=== PATIENT | male | born 1975 | race Caucasian/White ===

== ENCOUNTER 2020-10-28 15:00 | Outpatient (RCR) | payer OTHER, SELFPAY ==
--- NOTE | 2020-09-21 17:04 | MHC.PT.EP ---
[facility] [place] [facility] [place] Office [place] Office [address] [phone] F: [phone] F: [phone] F: [phone] F: [phone] Physical Therapy Plan of Care Date of Evaluation: Date of Surgery: Diagnosis: R arm pain. 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 Pt is deemed an appropriate candidate to receive skilled PT in order to address his physical limitations to improve his functional ability. Frequency and Duration: The patient will be seen 2 x / wk x 5 wks. Short Term Goals: initiate HEP with evidence of compliance. R UE radicular Sx abolished. Correction Goals: R UE strength improved to 5/5 grossly initial 4/5. I with HEP Pt will report no linger disturbed of sleep d/t R arm pain; initial 1/4 nights sleep disturbed. Treatment Plan: Modalities to reduce pain, spasms and effusion. Manual therapy to restore motion and function. Therapeutic exercise to improve strength and flexibility. Neuromuscular re-education for posture and balance. Therapeutic activities to return to functional activities of daily living. Electronically signed by: Seamus Reich PT. Please sign and return to therapist. Thank you for your referral.
--- NOTE | 2020-10-28 17:41 | MHC.PT.DC ---
[facility] [place] Office [place] Office [place] Office [address] Jonnathan Par[address] [phone] F: [phone] F: [phone] F: [phone] F: [phone] Physical Therapy Discharge Report Diagnosis: R arm pain. Date of Surgery: Date of Evaluation: 09/21/20 Date of Discharge: 10/28/20 Treatments to Date: 8 Cancellations to Date: No Shows to Date: Discharge Status: Achieved Goals Improved Function Independent with HEP Discharge Summary: Mark has been an active participant in his therapy in and out of the clinic. He has met his therapeutic goals and reports 80-85% improvement in his Sx and is in agreement with DC as he is I with his home program. Electronically signed by: Seamus Reich PT. Please sign and return to therapist. Thank you for your referral.
== END 2020-10-28 17:42 | disposition home or self-care (01) ==
LOC: HO.PTCHIC 15:00
PROVIDERS: PCP Hospitalist; Visit Provider Family Medicine
DX: M79.601 Pain in right arm (principal)
CPT/HCPCS: 97110; 97140; 97161

== ENCOUNTER 2021-08-28 12:13 | Outpatient (REF) | payer OTHER, SELFPAY ==
[2021-08-28 13:28] LABS: Hematocrit 45.4 % (42.0-52.0); Hemoglobin 14.9 g/dl (14.0-18.0); Mean Corpuscular HGB Conc 32.8 g/dl (31.0-36.0); Mean Corpuscular Hemoglobin 29.7 pg (27.0-33.0); Mean Corpuscular Volume 90.4 fL (80.0-98.0); Mean Platelet Volume 8.5 fL (9.4-12.4); Platelet Count 323 X10*3/uL (160-400); Red Blood Count 5.02 X10*6/uL (4.60-5.80); Red Cell Distribution Width 12.9 % (11.0-16.0); White Blood Count 8.5 X10*3/uL (4.8-10.8)
[2021-08-28 13:50] LABS: Alanine Aminotransferase 25 U/L (0-40); Albumin Level 4.3 g/dL (3.5-5.0); Alkaline Phosphatase 66 U/L (39-117); Anion Gap 15 (12-20); Aspartate Amino Transferase 19 U/L (5-37); Bilirubin Total 0.4 mg/dL (0.0-1.0); Blood Urea Nitrogen 22 mg/dL (9-16); Calcium 9.8 mg/dL (8.4-10.2); Carbon Dioxide 24 mmol/L (22-29); Chloride 106 mmol/L (96-108); Cholesterol 250 mg/dL; Estimated Glomerular Filt Rate > 60; Glucose Fasting 106 mg/dL (60-99); HDL Cholesterol 41 mg/dL; LDL Cholesterol Calculated 152 mg/dl; Potassium 4.2 mmol/L (3.3-5.1); Sodium 141 mmol/L (135-145); Total Protein 7.9 g/dL (6.5-8.0); Triglycerides 286 mg/dL
[2021-08-28 13:55] LABS: Appearance Urine CLEAR; Color Urine YELLOW; Glucose Urine UA NEG (NEG); Leukocyte Esterase Urine NEG (NEG); Nitrite Urine NEG (NEG); PH 5.5 (5.0-8.0); Specific Gravity - Urine >= 1.030 (1.005-1.025); Urine Blood NEG (NEG); Urine Ketones NEG (NEG); Urine Protein 1+ MG/DL (NEG-TRACE)
[2021-08-28 13:57] LABS: TSH reflex Free T4 0.75 uIU/mL (0.32-4.0)
[2021-08-28 14:27] LABS: Mucus Urine 2+ /LPF; RBC Urine 0-2 /HPF (0); Sperm Urine NOTED; WBC Urine 0-2 /HPF (0-4)
== END 2021-08-28 12:14 | disposition home or self-care (01) ==
LOC: HO.WFDLDS 12:13
PROVIDERS: Visit Provider Hospitalist
DX: Z00.00 Encounter for general adult medical examination without abnormal findings (principal)
CPT/HCPCS: 36415; 80053; 80061; 81001; 84443; 85027

== ENCOUNTER → 2021-09-08 14:57 | Outpatient (BNVA) | payer OTHER, SELFPAY | PROVIDERS: PCP Hospitalist; Referring Provider Hospitalist; Visit Provider Nurse Practitioner | DX: Z13.89 Encounter for screening for other disorder (principal) ==

== ENCOUNTER 2022-01-10 11:37 | Day surgery (SDC) | payer OTHER, SELFPAY ==
--- NOTE | 2022-01-09 14:48 | P.CONAN_ITS ---
Documented by User: Aracelis Alanis NP 01/09/22 14:49 HPI - Anesthesia Eval Consult details Narrative: 46yo M for Colonoscopy Hx of syncope after surgical procedures. Needle phobic? PMFSH Active Problems Active Problems: All Active Problems (Updated 09/15/21 @ 08:57 by PETER Arroyo) Colon cancer screening (Acute) High cholesterol (Acute) Normal physical exam (Acute) Acute hemorrhoid (Acute) Hx of colonic polyps (Acute) Encounter for colonoscopy due to history of colonic polyp (Acute) Difficulty in urination (Acute) Obesity (BMI 30.0-34.9) (Acute) Overweight (Acute) Right upper limb pain (Acute) Anxiety and depression (Acute) Past Medical History Medical History Anxiety and depression COPD (chronic obstructive pulmonary disease) ED (erectile dysfunction) Family History Family History Mother Cancer Father No problems noted. 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 Cognitive needs: No Hearing needs: No Vision needs: No Meds Allergies Allergy/AdvReac Type Severity Reaction Status Date / Time No Known Allergies Allergy Verified 09/08/21 15:19 Exam Exam Date and Time: January 09, 2022 144 Pertinent Lab Results Pertinent Lab Results: Laboratory Tests 08/28/21 08/28/21 12:23 12:23 WBC 8.5 Hgb 14.9 Hct 45.4 Plt Count 323 Sodium 141 Potassium 4.2 Chloride 106 Carbon Dioxide 24 BUN 22 H Creatinine 1.00 Assessment and Plan Assessment Anesthesia Assessment: Chart Reviewed Documented by User: Justin Garcia MD 01/10/22 12:02 [facility] Past Medical History Medical History Anxiety and depression COPD (chronic obstructive pulmonary disease) ED (erectile dysfunction) Family History Family History Mother Cancer Father No problems noted. 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 Cognitive needs: No Hearing needs: No Vision needs: No Meds Allergies Allergy/AdvReac Type Severity Reaction Status Date / Time No Known Allergies Allergy Verified 09/08/21 15:19 Exam Airway Mallampati Class: II TM Dist: >3cm Neck ROM: Full Loose/Missing/Broken Teeth: No Heart: rrr+s1s2 Lungs: cta b/l Assessment and Plan Assessment Anesthesia Assessment: Anesthesia Plan Discussed Final Anesthetic Review Family History of Problems with Anesthesia: No History of Problems with Anesthesia: No NPO: Yes ASA Class: III Final Preanesthetic Review: No Changes in Pt Med Stat, Meds/Allgs Chart Reviewed, Consent Obtained/Reviewed and Anes Risks/Benef Reviewed Patient Risk: Intermediate Procedure Risk: Low Assessment/Block/Sedation in SS: Assess/Block/Sedation-SS Anesthetic Plan Anesthetic Plan: MAC: and Agree w/ Assess. and Plan Disposition: Standard PACU
[2022-01-10 11:45] VITALS: BMI 30.9
[2022-01-10 11:53] VITALS: BP 147/91; PULSE 105; RESP 16; TEMP 36.8; O2SAT 96
[2022-01-10] MEDS: Lactated Ringers 1,000 ML 100 ML IVCONT (12:07)
--- NOTE | 2022-01-10 12:10 | MHC.SHP ---
Pre-Procedural Eval Section A Date of Service: 01/10/22 Section B Chief Complaint: screening colo Details of Present Illness: 46y.o M at ? high risk for colon cancer here for a colonoscopy. Tells me his father had colon cancer but he is not sure what age he was diagnosed at. Pt himself had a colonoscopy at [facility] >5y ago for rectal bleeding, no polyps at that time per his report. Relevant Social History: Tobacco Use (Former ) Present Medications: see Short Stay Collaborative assessment Medical History: Significant History History of Previous Operations: No relevant previous surgery (hernia repair ) Allergies: Allergies Allergy/AdvReac Type Severity Reaction Status Date / Time No Known Allergies Allergy Verified 09/08/21 15:19 Review of Systems Review of Systems Comment: 10 point ROS negative except as noted above Exam Exam Comment: Gen appear: No acute distress, well nourished HEENT: no icterus, Chest: No overt resp distress CVS: S1/S2, regular Abd: soft, nontender, nondistended Psych: Stable affect, answering questions appropriately Neuro: A/Ox3 noted to move all extremities spontaneously Plan I have reviewed the history and physical and performed a pertinent physical examination on my patient. No changes have occurred unless specified.
--- NOTE | 2022-01-10 12:16 | P.OP_ITS ---
Operative Note Operative Note Date of Service: 01/10/22 Narrative: Procedure: Colonoscopy Indication: Screening, family history of colon cancer Endoscopist: Cristin Razo MD Anesthesia Provider: Dr Jenna Aiken Anesthesia type: MAC Instrument: Olympus [id number]-[id number] Consent: Indication, risks vs benefits, and alternatives were discussed with the patient who gave written informed consent to proceed. EKG, pulse, pulse oximetry and blood pressure were monitored throughout the procedure. Please see anesthesia flowsheet. Procedure: The patient was brought to the procedure room and placed in the left lateral decubitus position. IV medications were administered by the anesthesia provider in attendance. A digital rectal exam was performed which was normal. The colonoscope was then inserted through the anus and advanced through the colon to the cecum at 80 cm,and terminal ileum. Mucosa was carefully examined under high definition white light as the instrument was slowly withdrawn in a retrograde panoramic fashion. Retroflexion was performed in rectum. The procedure was not difficult. There were no immediate obvious complications. The quality of the prep was BBPS: 3+2+3 = adequate Withdrawal time 16 minutes. Limitations: No limitations. Findings: Mucosa: Normal to cecum and terminal ileum. Protruding lesions: * 1 sessile polyp of size 2 mm in sigmoid colon. Cold forceps polypectomy was performed. The polyp was completely removed and retrieved. * Small internal hemorrhoids without stigmata of recent bleeding. Excavated lesions: * Mild diverticulosis of left sided colon. Impression: 1. Normal colon mucosa 2. Total of 1 polyp removed from sigmoid colon. 3. Left sided diverticulosis 3. Internal hemorrhoids Recommendations: - Follow path results. - Repeat colonoscopy 7-10 years if polyps are adenomas. - Increase fiber intake
[2022-01-10 12:55] VITALS: BP 108/73; PULSE 88; RESP 16; TEMP 36.1; O2SAT 93
[2022-01-10 13:10] VITALS: BP 121/81; PULSE 86; RESP 19; TEMP 36.1; O2SAT 97
== END 2022-01-10 13:54 | disposition home or self-care (01) ==
PROVIDERS: Visit Provider Internal Medicine
PROC: 0DJD8ZZ Inspection of Lower Intestinal Tract, Via Natural or Artificial Opening Endoscopic (ICD-10-PCS; CPT 45378; principal; 2022-01-10 13:10)
DX: Z12.11 Encounter for screening for malignant neoplasm of colon (principal); Z86.010 Personal history of colon polyps; K63.5 Polyp of colon; K57.30 Diverticulosis of large intestine without perforation or abscess without bleeding; K64.8 Other hemorrhoids; N52.9 Male erectile dysfunction, unspecified; R39.198 Other difficulties with micturition; E78.00 Pure hypercholesterolemia, unspecified; F41.8 Other specified anxiety disorders; Z79.899 Other long term (current) drug therapy; Z87.891 Personal history of nicotine dependence
CPT/HCPCS: 45380; 88305; J2405

== ENCOUNTER 2022-10-30 12:22 | Outpatient (AMB) | payer BC, SELFPAY ==
--- NOTE | 2022-10-30 12:29 | A.OFFPC_ITS ---
Vital Signs 10/30/22 12:30 Height 5 ft 3 in Weight 176 lb 6 oz BMI 31.2 BP 128/70 Blood Pressure Location Lt brachial Position Sitting Pulse 87 Pulse Source Pulse Oximeter Pulse Oximetry (%) 97 Intake Visit Reasons: Hemorrhoid anal itch Intake Note: pt is here for hemorrhoid/anal itch, since January after colonoscopy. patient also has concerns about white spots on skin Family Services Coordinator Required: No Accompanied by: Self / Same As Patient Allergies No Known Allergies Allergy (Verified 10/30/22 12:49) Medication List - Last Reconciled 10/30/22 by Kimberly Alfaro CNP atorvastatin 40 mg PO BEDTIME cyclobenzaprine 10 mg PO TID 30 days fluoxetine 40 mg PO DAILY hydrocortisone 2.5% (Anusol-HC) 1 appl [place] BID-QID PRN melatonin 10 mg PO BEDTIME Tobacco use date assessed: 10/30/22 Dental Screening Dental Screen Date: 10/30/22 Did you have a dental visit in the last 12 months?: Yes Did you have a dental problem in the last 6 months where you did not have access to dental care?: No Was dental information given to patient?: Patient has dentist HPI HPI Comments History of Present Illness Details 47-year-old male presents with complaints of external hemorrhoids. He notes that the hemorrhoids have been present and itchy since he had colonoscopy last January. He reports blood on the wipes after having bowel movements. No pain or blood in the stool. He states he has been using [id number] remedies and previously prescribed medication without relief. Review of 01/10/2022 colonoscopy results revealed hyperplastic mucosal polyp with recommended follow-up in 10 years. He notes that he has been taking fluoxetine as prescribed with controlled anxiety and depression symptoms. [facility] Medical History Anxiety and depression COPD (chronic obstructive pulmonary disease) ED (erectile dysfunction) Surgical History H/O umbilical hernia repair Hx of colonoscopy Family History Mother Cancer Father No problems noted. 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 1. Little interest or pleasure in doing things: several days 2. Feeling down, depressed, or hopeless: several days 3. Trouble falling or staying asleep, or sleeping too much: several days 4. Feeling tired or having little energy: nearly every day 5. Poor appetite or overeating: several days 6. Feeling bad about yourself - or that you are a failure or have let yourself or your family down: not at all 7. Trouble concentrating on things, such as reading the newspaper or watching television: several days 8. Moving or speaking so slowly that other people could have noticed. Or the opposite - being so fidgety or restless that you have been moving around a lot more than usual: not at all 9. Thoughts that you would be better off or of hurting yourself in some way: not at all Total score: 8 Depression Screening Interpretation: Positive Depression Screening Follow-up: Existing condition and In treatment 46696 - PHQ-9 Billing: Yes Source: Developed by Drs. Andrea Stewart, Alana Cuello, Kenneth Lane and colleagues, with an educational parvez from [employer]. Thrive Questionnaire Date Thrive assessed: 10/30/22 I am a: Patient What is your living situation today?: I have a steady place to live Within the past 12 months, did the food you bought not last and you didn't have the money to get more?: Never true Within the past 12 months, did you worry whether your food would run out before you got money to buy more?: Never true Do you have trouble paying for medicines?: No Do you have trouble getting transportation to medical appointments?: No Do you have trouble paying your heating and electricity bill?: No Do you have trouble taking care of your child, family member or friend?: No Do you have trouble with day-to-day activities such as bathing, preparing meals, shopping, managing finances, etc.?: No Are you currently unemployed and looking for a job?: No Are you interested in more education?: No Please select the resources that you would like help with: None Currently or been in a relationship where the following occur: no concerns reported JOSE-7 AMB Questionnaire JOSE-7 Date JOSE - 7 assessed: 10/30/22 Feeling nervous, anxious, or on edge: 1 = Several days Not being able to stop or control worryin = Not at all Worrying too much about different things: 1 = Several days Trouble relaxin = Several days Being so restless that it is hard to sit still: 1 = Several days Becoming easily annoyed or irritable: 1 = Several days Feeling afraid as if something awful might happen: 0 = Not at all Total JOSE-7 score (0-4 normal; 5-9 mild; 10-14 moderate; 15-21 severe): 5 Source: Developed by Drs. Andrea Stewart, Alana Cuello, Kenneth Lane and colleagues, with an educational parvez from [employer]. JOSE-7 Assessment Billing JOSE-7 Assessment Tool: JOSE-7 Assessment 34371 Review of Systems Const Details: Const Denies chills, Denies fatigue, Denies fever(s), Denies headache(s) and Denies weakness ENT Denies dizziness and Denies headache(s) Card Denies chest pain, Denies lightheadedness, Denies dyspnea and Denies other (Palpitations) Resp Denies cough, Denies dyspnea, Denies wheezing and Denies other ( shortness of breath) GI Reports hemorrhoids, Denies abdominal pain, Denies melena, Denies hematochezia, Denies change in bowel habits, Denies dyspepsia and Denies nausea Denies hematuria and Denies dysuria Musc Denies abnormal gait, Denies myalgias, Denies arthralgias, Denies numbness and Denies tingling Skin/Breast Denies rash, Denies unusual bruising and Denies wounds Neuro Denies abnormal gait, Denies dizziness, Denies headache(s), Denies memory loss, Denies numbness, Denies Sensory deficit (Neuro), Denies tingling and Denies weakness Psych Denies anxiety and Denies depression Endo Denies fatigue Aller/Immun Denies wheezing Physical exam (Primary Care) Vital Signs: Last Vital Signs Pulse 87 10/30/22 12:30 BP 128/70 10/30/22 12:30 Pulse Ox 97 10/30/22 12:30 BMI result Body Mass Index 31.2 Tobacco/Smoking Status: Tobacco use Status Tobacco use date assessed 10/30/22 10/30/22 12:32 Patient Tobacco Use Status Former Tobacco user 10/30/22 12:32 e-Cigarette/Vaping Use Never Used 10/30/22 12:32 PHQ-9: PHQ-9 Score PHQ-9: Total score 8 10/30/22 12:36 Depression Screening Interpretation: Positive Depression Screening Follow-up: Existing condition and In treatment Thrive Assessment: Date of Thrive Assessment Date Thrive assessed 10/30/22 10/30/22 12:36 Currently or been in a relationship where the following occur: no concerns reported Const Other: General: no acute distress and well developed Nutritional Appearance: well nourished Orientation/consciousness: patient oriented x3 HENMT Head: Yes normocephalic and Yes atraumatic Eyes General: appearance normal, both eyes and all related structures Pupils: Equal, round and reactive pupils present EOM: EOMs intact bilaterally Resp Effort & Inspection: normal respiratory effort Auscultation: clear to auscultation bilaterally Cardio Rate: regular rate Rhythm: regular rhythm Heart sounds: S1 normal heart sound present, S2 normal heart sound present, no gallops, no murmurs and no rubs GI Palpation (GI): No Abdominal aortic bruit present, Soft to palpation, nontender, No hepatosplenomegaly present and No Rebound tenderness present Auscultation: normal bowel sounds General: Yes no CVA tenderness Back/Spine/Pelvis Back: no CVA tenderness Cervical Spine: cervical ROM normal and No Cervical spine tenderness Thoracic/Lumbar Spine: thoraco-lumbar ROM normal, No pain with thoraco-lumbar ROM, No thoracic spinal tenderness and No lumbar spinal tenderness Extrem General: Yes normal to inspection, No edema and No calf tenderness Skin General: warm and dry. Normal skin color. Normal skin turgor Lesions: no lesions Rashes: no rashes Trauma: no lacerations or abrasions Wounds: no wounds Nails: normal Neuro General: patient oriented x3, gait normal and no focal neuro deficit Cranial nerves: Yes Equal, round and reactive pupils present Cognition (Neuro): normal cognition Gait exam (Neuro): Normal gait present Sensory Exam: No Sensory deficit (Neuro) Psych Affect: normal affect Assessment and Plan Assessment & Plan (1) Hemorrhoids: Code(s): K64.9 - Unspecified hemorrhoids Plan: He notes that the hemorrhoids have been present and itchy since he had colonoscopy last January. He reports blood on the wipes after having bowel movements. No pain or blood in the stool. Hemorrhoidal cream as prescribed Referred to Gastroenterology Follow-up with with new or worsening symptoms Verbalized understanding and agreed with the treatment plan. (2) Anxiety and depression: Code(s): F41.9 - Anxiety disorder, unspecified; F32.9 - Major depressive disorder, single episode, unspecified Plan: PHQ-9 and JOSE-7 scores revealed mild depression and anxiety Fluoxetine as prescribed Routine exercise encouraged Follow-up with PCP as planned Return sooner with new or worsening symptoms Verbalized understanding and agreed with treatment plan. Orders: Referrals Gastroenterology Referral K64.9 - Unspecified hemorrhoids Medications: New lidocaine 5% (Hemorrhoidal Relief) 1 appl topical TID PRN 30 grams 0RF pain Coding Level of Care Code Est Pt Level 3 (98277) Diagnoses Hemorrhoids K64.9 Anxiety and depression F41.9; F32.9 Additional Codes JOSE-7 Assessment Billing - JOSE-7 Assessment Tool: JOSE-7 Assessment [id number] ([id number]) Time Spent (min) 25
[2022-10-30 12:30] VITALS: BP 128/70; PULSE 87; O2SAT 97; BMI 31.2
== END 2022-10-30 13:09 | disposition home or self-care (01) ==
PROVIDERS: PCP Hospitalist; Visit Provider Nurse Practitioner Family
DX: K64.9 Unspecified hemorrhoids (principal); F41.9 Anxiety disorder, unspecified; F32.9 Major depressive disorder, single episode, unspecified
CPT/HCPCS: 99213

== ENCOUNTER 2022-12-12 11:12 | Outpatient (AMB) | payer BC, SELFPAY ==
[2022-12-12 11:16] VITALS: BP 139/87; PULSE 86; BMI 30.8
--- NOTE | 2022-12-12 11:16 | MHC.OFFVIS ---
Intake Vital Signs 12/12/22 11:16 Height 5 ft 3 in Weight 174 lb BMI 30.8 BP 139/87 Blood Pressure Location Rt brachial Position Sitting Pulse 86 Intake Visit Reasons: Hemorrhoids Intake Note: Patient referred for external hemorrhoids. C/o intense itch. Was prescribed 4%lido, 2.5% HC cr and OTC 5% Pranicura with no improvement. Fleet suppository not helping. Also tried bath soaks. Patient c/o bleeding when wiping after BM. Had colonoscopy last January. Transmission Maintenance Supervisor Required: No Accompanied by: Spouse Allergies No Known Allergies Allergy (Verified 12/12/22 11:21) Medication List - Last Reconciled 12/12/22 by Prieto Caballero MD atorvastatin 40 mg PO BEDTIME cyclobenzaprine 10 mg PO TID 30 days fluoxetine 40 mg PO DAILY hydrocortisone 2.5% (Anusol-HC) 1 appl [place] BID-QID PRN lidocaine 5% (Hemorrhoidal Relief) 1 appl topical TID PRN melatonin 10 mg PO BEDTIME HPI HPI Comments History of Present Illness Details Patient presents with his significant other with a approximately 10 month history of anorectal pain, itching and discomfort. He was attributing his symptoms to what he thought were hemorrhoids. Patient had colonoscopy approximately year ago which was otherwise within normal limits. He has occasional hard/constipated stool. Denies any anal receptive practices. Chart was reviewed and patient evaluated [facility] Medical History Anxiety and depression COPD (chronic obstructive pulmonary disease) ED (erectile dysfunction) Surgical History H/O umbilical hernia repair Hx of colonoscopy Family History Mother Cancer Father No problems noted. 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 No significant hemorrhoids identified. Rectal exam was deferred secondary to patient's discomfort. Assessment & Plan Assessment & Plan (1) Anal fissure: Code(s): K60.2 - Anal fissure, unspecified Plan I discussed with the patient and his significant other recommendations for his posterior anal fissure. These include stool softeners, drain lots of water, stay hydrated, avoid prolonged sitting on the toilet, avoid straining, and because of the chronicity of symptoms, will recommend topical nitroglycerin. All questions were answered. Patient will see me in approximately 2 months time or p.r.n. Medications: New nitroglycerin 0.4%(w/w) (Rectiv) 1 inch AL BID 30 grams 2RF Anal fissure Coding Level of Care Code New Pt Level 5 (64899) Diagnoses Anal fissure K60.2
== END 2022-12-12 11:46 | disposition home or self-care (01) ==
PROVIDERS: PCP Hospitalist; Referring Provider Nurse Practitioner Family; Visit Provider Surgery
DX: K60.2 Anal fissure, unspecified (principal)
CPT/HCPCS: 99204

== ENCOUNTER → 2022-12-12 11:12 | Outpatient (BNVA) | payer BC, SELFPAY | PROVIDERS: PCP Hospitalist; Referring Provider Nurse Practitioner Family; Visit Provider Surgery ==

== ENCOUNTER 2023-02-11 10:40 | Outpatient (AMB) | payer BC, SELFPAY ==
[2023-02-11 10:51] VITALS: BP 118/64; PULSE 82; RESP 12; TEMP 37.1; O2SAT 98; BMI 32.5
--- NOTE | 2023-02-11 10:51 | MHC.PC.OV ---
Vital Signs 02/11/23 10:51 Height 5 ft 3 in Weight 183 lb 6 oz BMI 32.5 BP 118/64 Blood Pressure Location Lt brachial Position Sitting Respiration 12 Pulse 82 Pulse Source Pulse Oximeter Temp 98.7 F Temp Source Oral Pulse Oximetry (%) 98 Oxygen Delivery Method Room Air Intake Visit Reasons: PE Intake Note: Patient is here for a physical. Patient's last physical was on 08/16/21 with Esme Marques DNP. Patient reports he has no concerns to report. Hourly Associate Required: No Accompanied by: Self / Same As Patient Allergies No Known Allergies Allergy (Verified 02/11/23 11:30) Medication List - Last Reconciled 02/11/23 by Kimberly Alfaro CNP atorvastatin 40 mg PO BEDTIME cyclobenzaprine 10 mg PO TID 30 days fluoxetine 40 mg PO DAILY hydrocortisone 2.5% (Anusol-HC) 1 appl MS BID-QID PRN lidocaine 5% (Hemorrhoidal Relief) 1 appl topical TID PRN melatonin 10 mg PO BEDTIME nitroglycerin 0.4%(w/w) (Rectiv) 1 inch MS BID Tobacco use date assessed: 02/11/23 Dental Screening Dental Screen Date: 02/11/23 Did you have a dental visit in the last 12 months?: No Did you have a dental problem in the last 6 months where you did not have access to dental care?: No Was dental information given to patient?: Patient declined HPI HPI Comments History of Present Illness Details 48-year-old male presents for transfer of care and a complete physical exam. His former PCP was JUDY who is no longer with the practice. He has past medical history significant for hyperlipidemia, obesity, anal fissure, anxiety, and depression. He admits to taking his medication as prescribed and reports controlled anxiety and depression symptoms on fluoxetine. He was evaluated and treated for anal fissure by [facility] General surgery in December 2022; he notes he has a follow up tomorrow. He had colonoscopy that was normal a year ago. He notes that his hearing has been diminished for the past several years. He states that he intends to lose weight. However, his diet has not been the Healthiest. He has not been exercising. He has not had routine blood work done in over a year. [facility] Medical History COPD (chronic obstructive pulmonary disease) Anxiety and depression ED (erectile dysfunction) Surgical History H/O umbilical hernia repair Hx of colonoscopy Family History Mother Cancer Father No problems noted. 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 1. Little interest or pleasure in doing things: more than half the days 2. Feeling down, depressed, or hopeless: more than half the days 3. Trouble falling or staying asleep, or sleeping too much: more than half the days 4. Feeling tired or having little energy: nearly every day 5. Poor appetite or overeating: more than half the days 6. Feeling bad about yourself - or that you are a failure or have let yourself or your family down: not at all 7. Trouble concentrating on things, such as reading the newspaper or watching television: more than half the days 8. Moving or speaking so slowly that other people could have noticed. Or the opposite - being so fidgety or restless that you have been moving around a lot more than usual: not at all 9. Thoughts that you would be better off or of hurting yourself in some way: not at all Total score: 13 Depression Screening Interpretation: Positive Depression Screening Follow-up: Existing condition and In treatment Depression Screening Done: Yes 05014 - PHQ-9 Billing: Yes Source: Developed by Drs. Andrea Stewart, Alana Cuello, Kenneth Lane and colleagues, with an educational parvez from [employer]. Thrive Questionnaire Date Thrive assessed: 02/11/23 I am a: Patient What is your living situation today?: I have a steady place to live Within the past 12 months, did the food you bought not last and you didn't have the money to get more?: Never true Within the past 12 months, did you worry whether your food would run out before you got money to buy more?: Never true Do you have trouble paying for medicines?: No Do you have trouble getting transportation to medical appointments?: No Do you have trouble paying your heating and electricity bill?: No Do you have trouble taking care of your child, family member or friend?: No Do you have trouble with day-to-day activities such as bathing, preparing meals, shopping, managing finances, etc.?: No Are you currently unemployed and looking for a job?: No Are you interested in more education?: No Please select the resources that you would like help with: None Currently or been in a relationship where the following occur: no concerns reported AUDIT C Alcohol Use Questionnaire (AUDIT-C) 1. How often do you have a drink containing alcohol?: Never 3. How often do you have six or more drinks on one occasion?: Never Total Score: 0 JOSE-7 AMB Questionnaire JOSE-7 Date JOSE - 7 assessed: 02/11/23 Feeling nervous, anxious, or on edge: 1 = Several days Not being able to stop or control worryin = Not at all Worrying too much about different things: 0 = Not at all Trouble relaxin = Several days Being so restless that it is hard to sit still: 1 = Several days Becoming easily annoyed or irritable: 2 = More than half the days Feeling afraid as if something awful might happen: 0 = Not at all Total JOSE-7 score (0-4 normal; 5-9 mild; 10-14 moderate; 15-21 severe): 5 Source: Developed by Drs. Andrea Stewart, Alana Cuello, Kenneth Lane and colleagues, with an educational parvez from [employer]. JOSE-7 Assessment Billing JOSE-7 Assessment Tool: JOSE-7 Assessment 82235 Review of Systems Const Details: Denies chills, Denies fatigue, Denies fever(s), Denies headache(s) and Denies weakness HEENT Denies change in vision, Denies dizziness, Denies headache(s), Reports hearing loss, Denies nasal congestion, Denies sinus pain, Denies sinus pressure and Denies sore throat Card Denies chest pain, Denies lightheadedness, Denies dyspnea and Denies other (palpitations) Resp Denies cough, Denies dyspnea and Denies wheezing GI Denies abdominal pain, Denies melena, Denies hematochezia, Denies change in bowel habits, Denies dyspepsia and Denies nausea Denies hematuria and Denies dysuria Musc Denies abnormal gait, Denies myalgias, Denies arthralgias, Denies numbness and Denies tingling Skin/Breast Denies rash, Denies unusual bruising and Denies wounds Neuro Denies abnormal gait, Denies dizziness, Denies headache(s), Denies memory loss, Denies numbness, Denies Sensory deficit (Neuro), Denies tingling and Denies weakness Psych Denies anxiety, Denies depression and Denies memory loss Endo Denies cold intolerance, Denies fatigue, Denies heat intolerance, Denies polydipsia and Denies polyuria Adarsh/Lymph Denies easy bleeding and Denies easy bruising Aller/Immun Denies wheezing Physical exam (Primary Care) Vital Signs: Last Vital Signs Temp 98.7 F 02/11/23 10:51 Pulse 82 02/11/23 10:51 Resp 12 02/11/23 10:51 BP 118/64 02/11/23 10:51 Pulse Ox 98 02/11/23 10:51 Oxygen Delivery Method Room Air 02/11/23 10:51 BMI result Body Mass Index 32.5 Tobacco/Smoking Status: Tobacco use Status Tobacco use date assessed 02/11/23 02/11/23 11:04 Patient Tobacco Use Status Former Tobacco user 02/11/23 10:52 e-Cigarette/Vaping Use Never Used 02/11/23 10:52 PHQ-9: PHQ-9 Score PHQ-9: Total score 13 02/11/23 11:18 Depression Screening Interpretation: Positive Depression Screening Follow-up: Existing condition and In treatment Thrive Assessment: Date of Thrive Assessment Date Thrive assessed 02/11/23 02/11/23 11:18 Currently or been in a relationship where the following occur: no concerns reported Const Other: General: no acute distress, well developed, alert and awake Nutritional Appearance: well nourished Orientation/consciousness: patient oriented x3 [facility] Head is normocephalic Impacted cerumen of both ears occluding the TMs, ear canals are normal, no overt signs of infection Nasal turbinates and oropharynx are pink and moist Sinuses are nontender with palpation No auricular or cervical lymphadenopathy Ears: hearing grossly normal bilaterally and TM's normal bilaterally General nose exam: Normal external nose present and Normal nares present Mouth: Normal oral and palatal mucosa present and moist mucous membranes Teeth and gingiva: dentition normal Throat: Yes oropharynx normal Eyes Pupils: Equal, round and reactive pupils present and Pupil accommodation reflex normal EOM: EOMs intact bilaterally Neck Neck: Yes normal visual inspection, Yes no lymphadenopathy and Yes trachea midline Thyroid: Thyroid normal Carotids: no bruits Lymphatic: no lymphadenopathy noted Chest Chest palpation & inspection: normal inspection of the chest Resp Effort & Inspection: normal respiratory effort Auscultation: clear to auscultation bilaterally Cardio Rate: regular rate Rhythm: regular rhythm Heart sounds: S1 normal heart sound present, S2 normal heart sound present, no gallops, no murmurs and no rubs Bruits: no abdominal aortic bruits and no carotid bruits GI Palpation (GI): No Abdominal aortic bruit present, Soft to palpation, nontender, No hepatosplenomegaly present and No Rebound tenderness present Auscultation: normal bowel sounds General: Yes no CVA tenderness Back/Spine/Pelvis Back: no CVA tenderness Cervical Spine: cervical ROM normal and No Cervical spine tenderness Thoracic/Lumbar Spine: thoraco-lumbar ROM normal, No pain with thoraco-lumbar ROM, No thoracic spinal tenderness and No lumbar spinal tenderness Skin General: warm and dry. Normal skin color. Normal skin turgor Lesions: no lesions Rashes: no rashes Trauma: no lacerations or abrasions Wounds: no wounds Nails: normal Neuro General: patient oriented x3, gait normal and CN's II-XI intact bilaterally Cranial nerves: Yes Equal, round and reactive pupils present Cognition (Neuro): normal cognition Gait exam (Neuro): Normal gait present Motor exam (neuro): 5/5 motor strength present throughout Sensory Exam: No Sensory deficit (Neuro) Deep tendon reflexes (DTR's): Right patellar reflex intensity grade: 2+ and Left patellar reflex intensity grade: 2+ Extrem General: Yes normal to inspection, No edema and No calf tenderness Psych Appearance: grossly normal Affect: normal affect Attitude: cooperative Thought process: Normal thought process present Assessment and Plan Assessment & Plan (1) Normal physical exam: Code(s): Z00.00 - Encounter for general adult medical examination without abnormal findings Plan: No significant physical restrictions or limitations noted Routine fasting labs ordered. Advise to fast for 10-12 hours and get blood work done before his next visit Follow-up in 1 month or return sooner with symptoms or concerns Verbalized understanding and agreed with treatment plan. (2) Anxiety and depression: Code(s): F41.9 - Anxiety disorder, unspecified; F32.9 - Major depressive disorder, single episode, unspecified Plan: PHQ-9 and JOSE-7 scores revealed moderate depression and mild anxiety respectively Continue to take fluoxetine as prescribed Routine exercise encouraged Follow-up in 1 month or return sooner with worsening or new symptoms Verbalized understanding and agreed with treatment plan. (3) Obesity (BMI 30.0-34.9): Code(s): E66.9 - Obesity, unspecified Plan: He notes that he has been unable to lose weight. He has been eating poorly and has not been exercising. He weighs 183 lb and his BMI is 32.5 Healthy diet and routine exercise encouraged Referred to weight management Follow-up with symptoms or concerns Verbalized understanding and agreed with treatment plan. (4) Impacted cerumen of both ears: Code(s): H61.23 - Impacted cerumen, bilateral Plan: Reports hearing loss for the past several years Impacted cerumen of both ears occluding the TMs, ear canals are normal, no overt signs of infection Debrox ordered. Apply to both ear canal as prescribed Schedule an appointment for bilateral ear irrigation Verbalized understanding and agreed with the plan. (5) Laboratory tests ordered as part of a complete physical exam (CPE): Code(s): Z00.00 - Encounter for general adult medical examination without abnormal findings Plan: Fasting labs ordered as part of a complete physical exam. Advised to fast for at least 10 hours before getting labs drawn. May drink water Verbalized understanding and agreed with treatment plan. Orders: Orders Comprehensive [place]. Panel Fast Today Z00.00 - Encounter for general adult medical examination without abnormal findings TSH reflex Free T4 Today Z00.00 - Encounter for general adult medical examination without abnormal findings Complete Blood Count Auto Diff Today Z00.00 - Encounter for general adult medical examination without abnormal findings Lipid Panel Today Z00.00 - Encounter for general adult medical examination without abnormal findings UA CC w/rflx Micro + Cult Today Z00.00 - Encounter for general adult medical examination without abnormal findings Referrals Medical Weight Management Referral E66.9 - Obesity, unspecified Medications: New carbamide peroxide 6.5% (Debrox) 5 drops to both ears x 4 days 5 drps otic (ears) DAILY 4 days 15 mL 0RF Coding Level of Care Code Est Pt Level 3 (99622) Est Pt Prev Care 40-64y(69659) Diagnoses Normal physical exam Z00.00 Anxiety and depression F41.9; F32.9 Obesity (BMI 30.0-34.9) E66.9 Impacted cerumen of both ears H61.23 Laboratory tests ordered as part of a complete physical exam (CPE) Z00.00 Additional Codes JOSE-7 Assessment Billing - JOSE-7 Assessment Tool: JOSE-7 Assessment 73617 ([id number])
== END 2023-02-11 11:49 | disposition home or self-care (01) ==
PROVIDERS: PCP Hospitalist; Visit Provider Nurse Practitioner Family
DX: Z00.00 Encounter for general adult medical examination without abnormal findings (principal); E66.9 Obesity, unspecified; Z68.25 Body mass index [BMI] 25.0-25.9, adult; F41.9 Anxiety disorder, unspecified; F32.9 Major depressive disorder, single episode, unspecified; H61.23 Impacted cerumen, bilateral
CPT/HCPCS: 96127; 99213; 99396

== ENCOUNTER 2023-02-12 14:06 | Outpatient (AMB) | payer BC, SELFPAY ==
[2023-02-12 14:13] VITALS: BP 153/83; PULSE 86; BMI 32.1
--- NOTE | 2023-02-12 14:13 | MHC.OFFVIS ---
Intake Vital Signs 02/12/23 14:13 Height 5 ft 3 in Weight 181 lb BMI 32.1 BP 153/83 H Blood Pressure Location Rt brachial Position Sitting Pulse 86 Intake Visit Reasons: 2 mth follow up hemorrhoids Intake Note: Patient here for 2m f/u hemorrhoids. Patient c/o internal and external itch. Pain and bleeding comes and goes. Rx nitroglycerin was $600 and was only able to fill once. Did not get much relieve with rx. Information Security Risk Analyst Required: No Accompanied by: Spouse Allergies No Known Allergies Allergy (Verified 02/12/23 14:14) HPI HPI Comments History of Present Illness Details Patient presents with his significant other. He has had marked improvement of his anorectal discomfort secondary to fissures. His main complaint is significant pruritus ani. Is otherwise tolerating his diet have a regular bowel habits. He used topical nitroglycerin with good results but it was quite expensive [facility] Medical History COPD (chronic obstructive pulmonary disease) Anxiety and depression ED (erectile dysfunction) Surgical History H/O umbilical hernia repair Hx of colonoscopy Family History Mother Cancer Father No problems noted. 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 Assessment & Plan Assessment & Plan (1) Anal fissure: Code(s): K60.2 - Anal fissure, unspecified Plan Patient has been given script for a topical ointment sample to see if this helps is pruritus ani, and if so, if he is to call the office a formal script will be written for the ointment(calmoseptine). All questions were answered. Patient otherwise follow-up p.r.n.. Coding Level of Care Code Est Pt Level 4 (36743) Diagnoses Anal fissure K60.2
== END 2023-02-12 14:24 | disposition home or self-care (01) ==
PROVIDERS: PCP Hospitalist; Visit Provider Surgery
DX: K60.2 Anal fissure, unspecified (principal)
CPT/HCPCS: 99214

== ENCOUNTER → 2023-02-12 14:06 | Outpatient (BNVA) | payer BC, SELFPAY | PROVIDERS: PCP Hospitalist; Visit Provider Surgery ==

== ENCOUNTER 2023-03-11 09:53 | Outpatient (REF) | payer BC, SELFPAY ==
[2023-03-11 11:11] LABS: MANUAL DIFF FLAG NO
[2023-03-11 11:41] LABS: Basophils Percent Auto 0.3 % (0-2); Eosinophils Absolute Auto 0.2 X10*3/uL (0.0-0.4); Eosinophils Percent Auto 2.2 % (0-4); Hematocrit 41.8 % (42.0-52.0); Hemoglobin 13.8 g/dl (14.0-18.0); Imm Gran Abs Auto 0.02 X10*3/uL (0.00-0.03); Imm Gran Pct Auto 0.3 % (0.0-0.4); Lymphocytes Absolute Auto 2.4 X10*3/uL (1.2-4.9); Lymphocytes Percent Auto 30.2 % (20-40); Mean Corpuscular Hemoglobin 30.1 pg (27.0-33.0); Mean Corpuscular Volume 91.3 fL (80.0-98.0); Mean Platelet Volume 8.9 fL (9.4-12.4); Monocytes Absolute Auto 0.7 X10*3/uL (0.1-1.2); Monocytes Percent Auto 8.3 % (2-11); Neutrophils Absolute Auto 4.6 x10*3/uL (2.0-8.3); Neutrophils Percent Auto 58.7 % (45-73); Platelet Count 285 X10*3/uL (160-400); Red Blood Count 4.58 X10*6/uL (4.60-5.80); Red Cell Distribution Width 12.4 % (11.0-16.0); White Blood Count 7.8 X10*3/uL (4.8-10.8)
[2023-03-11 12:00] LABS: Alanine Aminotransferase 22 U/L (0-40); Alkaline Phosphatase 69 U/L (39-117); Anion Gap 13 (12-20); Aspartate Amino Transferase 18 U/L (5-37); Bilirubin Total 0.5 mg/dL (0.0-1.0); Blood Urea Nitrogen 15 mg/dL (9-16); Calcium 9.2 mg/dL (8.4-10.2); Carbon Dioxide 26 mmol/L (22-29); Chloride 107 mmol/L (96-108); Cholesterol 145 mg/dL (<200); Estimated Glomerular Filt Rate > 60; Glucose Fasting 95 mg/dL (60-99); HDL Cholesterol 39 mg/dL (>40); LDL Cholesterol Calculated 49 mg/dL (<100); Potassium 3.6 mmol/L (3.3-5.1); Sodium 142 mmol/L (135-145); Total Protein 7.4 g/dL (6.5-8.0); Triglycerides 289 mg/dL (<150)
[2023-03-11 12:25] LABS: TSH reflex Free T4 1.32 uIU/mL (0.32-4.0)
== END 2023-03-11 09:54 | disposition home or self-care (01) ==
LOC: HO.WFDLDS 09:53
PROVIDERS: Visit Provider Nurse Practitioner Family
DX: Z00.00 Encounter for general adult medical examination without abnormal findings (principal)
CPT/HCPCS: 36415; 80053; 80061; 84443; 85025

== ENCOUNTER 2023-03-12 08:54 | Outpatient (AMB) | payer BC, SELFPAY ==
--- NOTE | 2023-03-12 08:58 | MHC.PC.OV ---
Vital Signs 03/12/23 08:59 Height 5 ft 3 in Weight 185 lb BMI 32.8 BP 118/68 Blood Pressure Location Rt brachial Position Sitting Respiration 13 Pulse 77 Pulse Source Pulse Oximeter Temp 97.6 F Temp Source Temporal Artery Scan Pulse Oximetry (%) 98 Oxygen Delivery Method Room Air Intake Visit Reasons: lab review anxiety,depression Lead Programmer Analyst Required: No Accompanied by: Self / Same As Patient Allergies No Known Allergies Allergy (Verified 03/12/23 09:10) Medication List - Last Reconciled 03/12/23 by Kimberly Alfaro CNP atorvastatin 40 mg PO BEDTIME carbamide peroxide 6.5% (Debrox) 5 drps otic (ears) DAILY 4 days cyclobenzaprine 10 mg PO TID 30 days fluoxetine 40 mg PO DAILY hydrocortisone 2.5% (Anusol-HC) 1 appl RI BID-QID PRN lidocaine 5% (Hemorrhoidal Relief) 1 appl topical TID PRN melatonin 10 mg PO BEDTIME menthol-zinc oxide 0.44-20.6 % (Calmoseptine) 1 appl topical QID PRN nitroglycerin 0.4%(w/w) (Rectiv) 1 inch RI BID Tobacco use date assessed: 02/11/23 Dental Screening Dental Screen Date: 03/12/23 Did you have a dental visit in the last 12 months?: No Did you have a dental problem in the last 6 months where you did not have access to dental care?: No Was dental information given to patient?: Patient declined HPI HPI Comments History of Present Illness Details 48-year-old male presents for anxiety, depression, and review of recent blood work follow-up He admits to taking his medications as prescribed without significant adverse reactions He reports controlled anxiety and depression symptoms on Floxetine. However, he reports low energy and lack of motivation especially on weekends He used to see a therapist and will like to start seeing one [facility] Medical History COPD (chronic obstructive pulmonary disease) Anxiety and depression ED (erectile dysfunction) Surgical History H/O umbilical hernia repair Hx of colonoscopy Family History Mother Cancer Father No problems noted. 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 1. Little interest or pleasure in doing things: nearly every day 2. Feeling down, depressed, or hopeless: several days 3. Trouble falling or staying asleep, or sleeping too much: more than half the days 4. Feeling tired or having little energy: nearly every day 5. Poor appetite or overeating: several days 6. Feeling bad about yourself - or that you are a failure or have let yourself or your family down: not at all 7. Trouble concentrating on things, such as reading the newspaper or watching television: several days 8. Moving or speaking so slowly that other people could have noticed. Or the opposite - being so fidgety or restless that you have been moving around a lot more than usual: not at all 9. Thoughts that you would be better off or of hurting yourself in some way: not at all Total score: 11 Depression Screening Interpretation: Positive Depression Screening Follow-up: Existing condition, In treatment, New Medication prescribed and Community Mental Health Worker F/U Depression Screening Done: Yes 94921 - PHQ-9 Billing: Yes Source: Developed by Drs. Andrea Stewart, Alana Cuello, Kenneth Lane and colleagues, with an educational parvez from [employer]. Thrive Questionnaire Date Thrive assessed: 02/11/23 JOSE-7 AMB Questionnaire JOSE-7 Date JOSE - 7 assessed: 03/12/23 Feeling nervous, anxious, or on edge: 1 = Several days Not being able to stop or control worryin = Not at all Worrying too much about different things: 1 = Several days Trouble relaxin = Several days Being so restless that it is hard to sit still: 1 = Several days Becoming easily annoyed or irritable: 1 = Several days Feeling afraid as if something awful might happen: 0 = Not at all Total JOSE-7 score (0-4 normal; 5-9 mild; 10-14 moderate; 15-21 severe): 5 Source: Developed by Drs. Andrea Stewart, Alana Cuello, Kenneth Lane and colleagues, with an educational parvez from [employer]. JOSE-7 Assessment Billing JOSE-7 Assessment Tool: JOSE-7 Assessment 51464 Review of Systems Const Details: Const Denies chills, Denies fatigue, Denies fever(s), Denies headache(s) and Denies weakness ENT Denies dizziness and Denies headache(s) Card Denies chest pain, Denies lightheadedness, Denies dyspnea and Denies other (Palpitations) Resp Denies cough, Denies dyspnea, Denies wheezing and Denies other ( shortness of breath) GI Denies abdominal pain, Denies melena, Denies hematochezia, Denies change in bowel habits, Denies dyspepsia and Denies nausea Denies hematuria and Denies dysuria Musc Denies abnormal gait, Denies myalgias, Denies arthralgias, Denies numbness and Denies tingling Skin/Breast Denies rash, Denies unusual bruising and Denies wounds Neuro Denies abnormal gait, Denies dizziness, Denies headache(s), Denies memory loss, Denies numbness, Denies Sensory deficit (Neuro), Denies tingling and Denies weakness Psych Denies anxiety, Denies depression, Denies memory loss Endo Denies cold intolerance, Denies fatigue, Denies heat intolerance, Denies polydipsia and Denies polyuria Aller/Immun Denies wheezing Physical exam (Primary Care) Vital Signs: Last Vital Signs Temp 97.6 F 03/12/23 08:59 Pulse 77 03/12/23 08:59 Resp 13 03/12/23 08:59 BP 118/68 03/12/23 08:59 Pulse Ox 98 03/12/23 08:59 Oxygen Delivery Method Room Air 03/12/23 08:59 BMI result Body Mass Index 32.8 Tobacco/Smoking Status: Tobacco use Status Tobacco use date assessed 02/11/23 03/12/23 09:07 Patient Tobacco Use Status Former Tobacco user 03/12/23 09:07 e-Cigarette/Vaping Use Never Used 03/12/23 09:07 PHQ-9: PHQ-9 Score PHQ-9: Total score 11 03/12/23 09:11 Depression Screening Interpretation: Positive Depression Screening Follow-up: Existing condition, In treatment, New Medication prescribed and Community Mental Health Worker F/U Thrive Assessment: Date of Thrive Assessment Date Thrive assessed 02/11/23 03/12/23 09:07 Const Other: General: no acute distress and well developed Nutritional Appearance: well nourished Orientation/consciousness: patient oriented x3 HENMT Head: Yes normocephalic and Yes atraumatic Eyes General: appearance normal, both eyes and all related structures Pupils: Equal, round and reactive pupils present EOM: EOMs intact bilaterally Resp Effort & Inspection: normal respiratory effort Auscultation: clear to auscultation bilaterally Cardio Rate: regular rate Rhythm: regular rhythm Heart sounds: S1 normal heart sound present, S2 normal heart sound present, no gallops, no murmurs and no rubs GI Palpation (GI): No Abdominal aortic bruit present, Soft to palpation, nontender, No hepatosplenomegaly present and No Rebound tenderness present Auscultation: normal bowel sounds General: Yes no CVA tenderness Back/Spine/Pelvis Back: no CVA tenderness Cervical Spine: cervical ROM normal and No Cervical spine tenderness Thoracic/Lumbar Spine: thoraco-lumbar ROM normal, No pain with thoraco-lumbar ROM, No thoracic spinal tenderness and No lumbar spinal tenderness Extrem General: Yes normal to inspection, No edema and No calf tenderness Skin General: warm and dry. Normal skin color. Normal skin turgor Lesions: no lesions Rashes: no rashes Trauma: no lacerations or abrasions Wounds: no wounds Nails: normal Neuro General: patient oriented x3, gait normal and no focal neuro deficit Cranial nerves: Yes Equal, round and reactive pupils present Cognition (Neuro): normal cognition Gait exam (Neuro): Normal gait present Sensory Exam: No Sensory deficit (Neuro) Psych Appearance: grossly normal Affect: normal affect Attitude: cooperative Thought process: Normal thought process present Assessment and Plan Assessment & Plan (1) Anxiety and depression: Code(s): F41.9 - Anxiety disorder, unspecified; F32.9 - Major depressive disorder, single episode, unspecified Plan: He reports controlled anxiety and depression symptoms, however, he experiences low energy and lack of motivation on weekends PHQ-9 and JOSE-7 scores revealed moderate depression and mild anxiety respectively Aripiprazole ordered. Take as prescribed Continue to take fluoxetine as prescribed Routine exercise encouraged He met with the community navigator who would refer him to a therapist Follow-up in 6 weeks or return sooner with worsening or new symptoms Verbalized understanding and agreed with treatment plan. (2) High cholesterol: Code(s): E78.00 - Pure hypercholesterolemia, unspecified Plan: Recent lab results reviewed with the patient; unremarkable findings except for elevated triglycerides and low HDL, 289 and 39 respectively Fenofibrate ordered. Take as prescribed Continue to take atorvastatin as prescribed Encouraged to limit foods high in saturated fat and avoid foods high trans fat Routine exercise encouraged Will recheck lipid levels. Advised to fast for 10-12 hours, may drink water only, and get blood work done a few days before his next visit Follow-up in 6 weeks Verbalized understanding and agreed with treatment plan Orders: Orders Lipid Panel 6 Weeks E78.00 - Pure hypercholesterolemia, unspecified Medications: New fenofibrate 54 mg PO DAILY 30 days 30 tabs 3RF aripiprazole (Abilify) 2 mg PO DAILY 30 days 30 tabs 3RF Coding Level of Care Code Est Pt Level 3 (37878) Diagnoses Anxiety and depression F41.9; F32.9 High cholesterol E78.00 Additional Codes JOSE-7 Assessment Billing - JOSE-7 Assessment Tool: JOSE-7 Assessment 38840 ([id number])
[2023-03-12 08:59] VITALS: BP 118/68; PULSE 77; RESP 13; TEMP 36.4; O2SAT 98; BMI 32.8
== END 2023-03-12 09:35 | disposition home or self-care (01) ==
PROVIDERS: PCP Hospitalist; Visit Provider Nurse Practitioner Family
DX: F41.9 Anxiety disorder, unspecified (principal); F33.1 Major depressive disorder, recurrent, moderate; E78.00 Pure hypercholesterolemia, unspecified
CPT/HCPCS: 96127; 99213

== ENCOUNTER 2023-03-12 08:56 | Outpatient (REF) | payer BC, SELFPAY ==
[2023-03-12 10:50] LABS: Appearance Urine Hazy; Color Urine Yellow; Glucose Urine UA Negative (Negative); Leukocyte Esterase Urine Negative (Negative); Nitrite Urine Negative (Negative); Specific Gravity - Urine >= 1.030 (1.005-1.025); Urine Blood Negative (Negative); Urine Ketones Negative (Negative); Urine Protein Trace mg/dL (Neg-Trace)
== END 2023-03-12 08:57 | disposition home or self-care (01) ==
LOC: HO.WFDLNP 08:56
PROVIDERS: Visit Provider Nurse Practitioner Family
DX: Z00.00 Encounter for general adult medical examination without abnormal findings (principal)
CPT/HCPCS: 81003

== ENCOUNTER 2023-03-21 13:04 | Outpatient (AMB) | payer BC, SELFPAY ==
[2023-03-21 13:20] VITALS: BP 120/68; PULSE 85; RESP 16; O2SAT 97; BMI 31.2
--- NOTE | 2023-03-21 13:20 | MHC.PC.OV ---
Vital Signs 03/21/23 13:20 Height 5 ft 3 in Weight 176 lb BMI 31.2 BP 120/68 Blood Pressure Location Lt brachial Position Sitting Respiration 16 Pulse 85 Pulse Source Pulse Oximeter Pulse Oximetry (%) 97 Oxygen Delivery Method Room Air Intake Visit Reasons: ear irriagation Intake Note: Patient is here for ear flush today. Allergies No Known Allergies Allergy (Verified 03/21/23 13:33) Medication List - Last Reconciled 03/21/23 by Kimberly Alfaro CNP aripiprazole (Abilify) 2 mg PO DAILY 30 days atorvastatin 40 mg PO BEDTIME carbamide peroxide 6.5% (Debrox) 5 drps otic (ears) DAILY 4 days cyclobenzaprine 10 mg PO TID 30 days fenofibrate 54 mg PO DAILY 30 days fluoxetine 40 mg PO DAILY hydrocortisone 2.5% (Anusol-HC) 1 appl ME BID-QID PRN lidocaine 5% (Hemorrhoidal Relief) 1 appl topical TID PRN melatonin 10 mg PO BEDTIME menthol-zinc oxide 0.44-20.6 % (Calmoseptine) 1 appl topical QID PRN nitroglycerin 0.4%(w/w) (Rectiv) 1 inch ME BID Tobacco use date assessed: 03/21/23 HPI HPI Comments History of Present Illness Details 48-year-old male presents for bilateral ear irrigation He has wax in both ears. No pain or hearing impairment PFSH Medical History COPD (chronic obstructive pulmonary disease) Anxiety and depression ED (erectile dysfunction) Surgical History H/O umbilical hernia repair Hx of colonoscopy Family History Mother Cancer Father No problems noted. 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 Andrea Stewart, Alana Cuello, Kenneth Lane and colleagues, with an educational parvez from [employer]. Review of Systems Const Details: Const Denies chills, Denies fatigue, Denies fever(s), Denies headache(s) and Denies weakness ENT Reports as per HPI Card Denies chest pain, Denies lightheadedness, Denies dyspnea and Denies other (Palpitations) Resp Denies cough, Denies dyspnea, Denies wheezing and Denies other ( shortness of breath) GI Denies abdominal pain, Denies melena, Denies hematochezia, Denies change in bowel habits, Denies dyspepsia and Denies nausea Denies hematuria and Denies dysuria Musc Denies abnormal gait, Denies myalgias, Denies arthralgias, Denies numbness and Denies tingling Skin/Breast Denies rash, Denies unusual bruising and Denies wounds Neuro Denies abnormal gait, Denies dizziness, Denies headache(s), Denies memory loss, Denies numbness, Denies Sensory deficit (Neuro), Denies tingling and Denies weakness Psych Denies anxiety, Denies depression, Denies memory loss Endo Denies cold intolerance, Denies fatigue, Denies heat intolerance, Denies polydipsia and Denies polyuria Aller/Immun Denies wheezing Physical exam (Primary Care) Tobacco/Smoking Status: Tobacco use Status Tobacco use date assessed 02/11/23 03/12/23 09:33 Patient Tobacco Use Status Former Tobacco user 03/12/23 09:33 e-Cigarette/Vaping Use Never Used 03/12/23 09:33 Thrive Assessment: Date of Thrive Assessment Date Thrive assessed 02/11/23 03/12/23 09:34 Const Other: General: no acute distress and well developed Nutritional Appearance: well nourished Orientation/consciousness: patient oriented x3 HENMT Head is normocephalic Impacted cerumen of both ears occluding the TMs Nasal turbinates and oropharynx are pink and moist Sinuses are nontender with palpation No auricular or cervical lymphadenopathy Eyes General: appearance normal, both eyes and all related structures Pupils: Equal, round and reactive pupils present EOM: EOMs intact bilaterally Resp Effort & Inspection: normal respiratory effort Auscultation: clear to auscultation bilaterally Cardio Rate: regular rate Rhythm: regular rhythm Heart sounds: S1 normal heart sound present, S2 normal heart sound present, no gallops, no murmurs and no rubs GI Palpation (GI): No Abdominal aortic bruit present, Soft to palpation, nontender, No hepatosplenomegaly present and No Rebound tenderness present Auscultation: normal bowel sounds General: Yes no CVA tenderness Back/Spine/Pelvis Back: no CVA tenderness Cervical Spine: cervical ROM normal and No Cervical spine tenderness Thoracic/Lumbar Spine: thoraco-lumbar ROM normal, No pain with thoraco-lumbar ROM, No thoracic spinal tenderness and No lumbar spinal tenderness Extrem General: Yes normal to inspection, No edema and No calf tenderness Skin General: warm and dry. Normal skin color. Normal skin turgor Neuro General: patient oriented x3, gait normal and no focal neuro deficit Cranial nerves: Yes Equal, round and reactive pupils present Cognition (Neuro): normal cognition Gait exam (Neuro): Normal gait present Sensory Exam: No Sensory deficit (Neuro) Psych Appearance: grossly normal Affect: normal affect Attitude: cooperative Thought process: Normal thought process present Assessment and Plan Assessment & Plan (1) Impacted cerumen of both ears: Code(s): H61.23 - Impacted cerumen, bilateral Plan: Significant amount of cerumen irrigated from both ears; bilateral ear canals and TMs are normal Advised to follow-up with symptoms or concerns Verbalized understanding and agreed with the plan Coding Level of Care Code Est Pt Level 3 (83530) Diagnoses Impacted cerumen of both ears H61.23
== END 2023-03-21 14:13 | disposition home or self-care (01) ==
PROVIDERS: PCP Nurse Practitioner Family; Visit Provider Nurse Practitioner Family
DX: H61.23 Impacted cerumen, bilateral (principal)
CPT/HCPCS: 99213

== ENCOUNTER 2023-04-04 14:11 | Outpatient (AMB) | payer BC, SELFPAY ==
--- NOTE | 2023-04-04 14:13 | A.OFFVIS_ITS ---
Intake Vital Signs 04/04/23 14:32 Height 5 ft 3 in Weight 170 lb BMI 30.1 BP 130/77 Blood Pressure Location Rt brachial Position Sitting Pulse 81 Intake Visit Reasons: Anal fissure Intake Note: This patient presents for an assessment for anal fissure. Patient c/o; reports no rectal bleeding, reports no pain. Contract Officer Required: No Accompanied by: Self / Same As Patient Allergies No Known Allergies Allergy (Verified 04/04/23 14:14) Medication List - Last Reconciled 04/04/23 by Elder Barr MD aripiprazole (Abilify) 2 mg PO DAILY 30 days atorvastatin 40 mg PO BEDTIME carbamide peroxide 6.5% (Debrox) 5 drps otic (ears) DAILY 4 days cyclobenzaprine 10 mg PO TID 30 days fenofibrate 54 mg PO DAILY 30 days fluoxetine 40 mg PO DAILY hydrocortisone 2.5% (Anusol-HC) [address] BID-QID PRN lidocaine 5% (Hemorrhoidal Relief) 1 appl topical TID PRN melatonin 10 mg PO BEDTIME menthol-zinc oxide 0.44-20.6 % (Calmoseptine) 1 appl topical QID PRN nitroglycerin 0.4%(w/w) (Rectiv) [address] BID HPI Anal fissure HPI Details 48-year-old male here for possible anal fissure. He has had this chronic complaints pain in the anus especially with bowel movements. He says this seems to be like a knife cutting his anus. He is lingers for a while after bowel movements. He would notice small amounts of blood on wiping. He has severe itching around the anus. He had been following Dr. Caballero and he was referred to me for a likely anal fissure. The patient says that he has this issue for several months now and has not felt any improvement. [facility] Medical History COPD (chronic obstructive pulmonary disease) Anxiety and depression ED (erectile dysfunction) Surgical History H/O umbilical hernia repair Hx of colonoscopy Family History Mother Cancer Breast cancer Father No problems noted. 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 Current occupational exposures/hazards: No Cognitive needs: No Hearing needs: No Vision needs: No Review of Systems Const Denies chills and Denies fever(s) Card Denies chest pain, Denies dyspnea and Denies dyspnea on exertion Resp Denies cough, Denies dyspnea and Denies dyspnea on exertion GI Reports hematochezia and Denies change in bowel habits Denies hematuria and Denies difficulty urinating Musc Denies back pain and Denies limited range of motion Neuro Denies focal weakness and Denies convulsions Psych Denies depression and Denies mood swings Physical Exam Vital Signs: Last Vital Signs Pulse 81 04/04/23 14:32 BP 130/77 04/04/23 14:32 BMI result Body Mass Index 30.1 Const General: comfortable and no acute distress Orientation/consciousness: patient oriented x3 Neck Neck: Yes no lymphadenopathy Resp Auscultation: clear to auscultation bilaterally Cardio Rhythm: regular rhythm GI Other: Rectal exam shows some tender mass on the posterior anal verge, with what appears to be skin breakdown, possible fissure Palpation (GI): Soft to palpation, nontender and no guarding Neuro General: patient oriented x3 Assessment & Plan Assessment & Plan (1) Anal fissure: Code(s): K60.2 - Anal fissure, unspecified Plan: He has had a long history of pain with bowel movements along with some blood on wiping. Examination shows some skin breakdown on the posterior distal anal canal suggestive of a fissure. I told him it may be best to proceed with exam under anesthesia and possible lateral internal sphincterotomy. I explained the technique of this procedure. We may also need to biopsy this fissure if this is atypical. I explained the risks of bleeding, infections, poor healing, sphincter injury, postop pain, as well as the benefits and alternatives. He understands and wants to proceed. Coding Level of Care Code Est Pt Level 3 (80414) Diagnoses Anal fissure K60.2
[2023-04-04 14:32] VITALS: BP 130/77; PULSE 81; BMI 30.1
== END 2023-04-04 14:41 | disposition home or self-care (01) ==
PROVIDERS: PCP Nurse Practitioner Family; Referring Provider Surgery; Visit Provider Surgery
DX: K60.2 Anal fissure, unspecified (principal)
CPT/HCPCS: 99213

== ENCOUNTER → 2023-04-04 14:11 | Outpatient (BNVA) | payer BC, SELFPAY | PROVIDERS: PCP Nurse Practitioner Family; Referring Provider Surgery; Visit Provider Surgery ==

== ENCOUNTER 2023-04-12 07:30 | Day surgery (SDC) | payer BC, SELFPAY ==
--- NOTE | 2023-04-11 10:32 | HO.ANESPROP2 ---
Documented by User: Aracelis Alanis NP 04/11/23 10:33 HPI - Anesthesia Eval Consult details Narrative: 48yo M for EUA,poss internal sphincterotomy and biopsy PMFSH Active Problems Active Problems: All Active Problems (Updated 04/11/23 @ 08:24 by Izabela Kline, STEPHY) Laboratory tests ordered as part of a complete physical exam (CPE) (Acute) Impacted cerumen of both ears (Acute) Anal fissure (Acute) Hemorrhoids (Acute) Colon cancer screening (Acute) High cholesterol (Acute) Normal physical exam (Acute) Acute hemorrhoid (Acute) Hx of colonic polyps (Acute) Encounter for colonoscopy due to history of colonic polyp (Acute) Difficulty in urination (Acute) Obesity (BMI 30.0-34.9) (Acute) Overweight (Acute) Right upper limb pain (Acute) Anxiety and depression (Acute) Past Medical History Medical History Elevated cholesterol COPD (chronic obstructive pulmonary disease) Anxiety and depression ED (erectile dysfunction) Family History Family History Mother Cancer Breast cancer Father No problems noted. 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 Current occupational exposures/hazards: No Cognitive needs: No Hearing needs: No Vision needs: No Meds Allergies Allergy/AdvReac Type Severity Reaction Status Date / Time No Known Allergies Allergy Verified 04/04/23 14:14 Exam Pertinent Lab Results Pertinent Lab Results: Laboratory Tests 03/11/23 10:00 WBC 7.8 Hgb 13.8 L Hct 41.8 L Plt Count 285 Sodium 142 Potassium 3.6 Chloride 107 Carbon Dioxide 26 BUN 15 Creatinine 0.93 Assessment and Plan Assessment Anesthesia Assessment: Chart Reviewed Final Anesthetic Review Family History of Problems with Anesthesia: No History of Problems with Anesthesia: No Documented by User: Jie Loving MD 04/12/23 09:46 PMFSH Active Problems Active Problems: All Active Problems (Updated 04/12/23 @ 09:17 by Jie Loving MD) Laboratory tests ordered as part of a complete physical exam (CPE) (Acute) Impacted cerumen of both ears (Acute) Anal fissure (Acute) Hemorrhoids (Acute) Colon cancer screening (Acute) High cholesterol (Acute) Normal physical exam (Acute) Hx of colonic polyps (Acute) Encounter for colonoscopy due to history of colonic polyp (Acute) Difficulty in urination (Acute) Obesity (BMI 30.0-34.9) (Acute) Overweight (Acute) Right upper limb pain (Acute) Anxiety and depression (Acute) COPD Past Medical History Medical History Elevated cholesterol COPD (chronic obstructive pulmonary disease) Anxiety and depression ED (erectile dysfunction) Family History Family History Mother Cancer Breast cancer Father No problems noted. 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 Diminished breath sounds Assessment and Plan Assessment Anesthesia Assessment: Anesthesia Plan Discussed Final Anesthetic Review NPO: Yes ASA Class: II Final Preanesthetic Review: No Changes in Pt Med Stat, Meds/Allgs Chart Reviewed, Consent Obtained/Reviewed and Anes Risks/Benef Reviewed Patient Risk: Intermediate Procedure Risk: Low Assessment/Block/Sedation in SS: Assess/Block/Sedation-SS Anesthetic Plan Anesthetic Plan: GA Disposition: Standard PACU
[2023-04-12] VITALS (7 sets, daily range): BP systolic 110–124; BP diastolic 63–85; PULSE 68–108; RESP 15–22; TEMP 36.6–36.8; O2SAT 96–100; BMI 33.3
--- NOTE | 2023-04-12 08:42 | PC.NURSE ---
pt receiving resp tx nad
--- NOTE | 2023-04-12 09:30 | MHC.SHP ---
Pre-Procedural Eval Section A Date of Service: 04/12/23 The patient is an INPATIENT: No Changes since office visit: No Cold of Flu in the past 2 weeks, No New Medical Problems, No Changes in Medication and No Patient answered all questions The History & Physical has been completed within 30 days and I have reviewed it.: Yes Section B Chief Complaint: Anal fissure, unspecified Allergies: Allergies Allergy/AdvReac Type Severity Reaction Status Date / Time No Known Allergies Allergy Verified 04/04/23 14:14 Plan I have reviewed the history and physical and performed a pertinent physical examination on my patient. No changes have occurred unless specified. Time Spent With Patient Time: Total time managing care of this patient today ____ minutes.
--- NOTE | 2023-04-12 10:24 | W.PM.OPN ---
Operative Note Operative Note Date of Service: 04/12/23 Narrative: Preop diagnosis: Question of anal fissure Postop diagnosis: Perianal dermatitis Procedure: Exam under anesthesia, biopsy of perianal skin Surgeon: Elder Barr MD The patient is a 48-year-old male, with long history of pain in the anus, and severe itching. He was referred to me because of a question of an anal fissure. I therefore scheduled the patient for exam under anesthesia, possible sphincterotomy and biopsy. He understood the technique of the planned procedure as well as the risks, benefits, and alternatives He was brought to the operating room. He was placed prone joaquin-knife position under general anesthesia via endotracheal tube. The buttocks were retracted with wide tape laterally. The perianal area was prepped and draped in the usual sterile fashion. A surgical time-out was done. The patient received Cefotan 2 g IV preoperatively Examination of the perineal skin revealed dermatitic changes from the verge all the way to about 2.5 cm circumferentially in the perianal skin. I retracted the anal verge. There was actually no fissure seen but there was note of appeared to be superficial skin fissuring to the right of the midline posteriorly. This appeared to be more because of the dermatitic changes. There was note of superficial skin excoriation. There were no lesions or induration. I inserted the Yolis Patel retractor. I examined the anal canal circumferentially. There were no lesions in the anal canal. There was no induration or any bleeding. There was no fissure in both the posterior midline and anterior midline. I inserted the Yolis Patel retractor. I examined the anal canal circumferentially. There was no fissure seen. There was no induration or any lesions noted. There was no bleeding. There was no abnormal mucosa in the anal canal. I proceeded to do a biopsy of the perianal skin by grasping part of this with forceps and taking wedge shaped tissue including an area of skin breakdown. I used electrocautery to achieve hemostasis. I then infiltrated the perianal area with Marcaine 0.5% for postop analgesia. The procedure was completed. The patient tolerated the procedure well. Estimated blood loss was about 2 cc. The patient was extubated without difficulty and transferred to the recovery room with stable vital signs.
== END 2023-04-12 11:29 | disposition home or self-care (01) ==
PROVIDERS: Visit Provider Surgery
PROC: (CPT 11106; principal; 2023-04-12 09:30)
DX: K62.89 Other specified diseases of anus and rectum (principal); L28.0 Lichen simplex chronicus; L30.8 Other specified dermatitis; J44.9 Chronic obstructive pulmonary disease, unspecified; F41.8 Other specified anxiety disorders; Z79.899 Other long term (current) drug therapy; Z87.891 Personal history of nicotine dependence
CPT/HCPCS: 11106; 11107; 88305; 88312; 94640; J0665; J1100; J1885; J2250; J2405; J2704; J3010

== ENCOUNTER → 2023-04-12 07:30 | Outpatient (BNV) | payer BC, SELFPAY | PROVIDERS: Visit Provider Surgery | DX: K60.2 Anal fissure, unspecified (principal); L28.0 Lichen simplex chronicus | CPT/HCPCS: 46922 ==

== ENCOUNTER 2023-04-23 11:25 | Outpatient (AMB) | payer BC, SELFPAY ==
--- NOTE | 2023-04-23 11:33 | MHC.PC.OV ---
Vital Signs 04/23/23 11:36 Height 5 ft 3 in Weight 177 lb 2 oz BMI 31.4 BP 122/78 Blood Pressure Location Rt brachial Position Sitting Respiration 13 Pulse 77 Pulse Source Pulse Oximeter Temp 97.6 F Temp Source Temporal Artery Scan Pulse Oximetry (%) 99 Oxygen Delivery Method Room Air Intake Visit Reasons: 6 wk follow up Product Representative Required: No Accompanied by: Self / Same As Patient Allergies No Known Allergies Allergy (Verified 04/23/23 11:46) Medication List - Last Reconciled 04/23/23 by Kimberly Alfaro CNP aripiprazole (Abilify) 2 mg PO DAILY 30 days atorvastatin 40 mg PO BEDTIME cyclobenzaprine 10 mg PO TID 30 days fenofibrate 54 mg PO DAILY 30 days fluoxetine 40 mg PO DAILY hydrocortisone 2.5% (Anusol-HC) 1 appl CA BID-QID PRN ibuprofen 600 mg PO Q6H PRN lidocaine 5% (Hemorrhoidal Relief) 1 appl topical TID PRN melatonin 10 mg PO BEDTIME menthol-zinc oxide 0.44-20.6 % (Calmoseptine) 1 appl topical QID PRN nitroglycerin 0.4%(w/w) (Rectiv) 1 inch CA BID oxycodone-acetaminophen 5-325 mg (Percocet) 1 tab PO Q4-6H PRN Tobacco use date assessed: 04/23/23 Dental Screening Dental Screen Date: 04/23/23 Did you have a dental visit in the last 12 months?: No Did you have a dental problem in the last 6 months where you did not have access to dental care?: No Was dental information given to patient?: Yes HPI HPI Comments History of Present Illness Details 48-year-old male presents for anxiety, depression, and hyperlipidemia follow-up He admits to taking his medications as prescribed without adverse reactions He reports control anxiety and depression symptoms on fluoxetine and Abilify He has not gotten his repeat lipid panel blood work done He notes that he has on a wait list with [facility] weight management He states that he has not been contacted for psychotherapy [facility] Medical History Elevated cholesterol COPD (chronic obstructive pulmonary disease) Anxiety and depression ED (erectile dysfunction) Surgical History H/O umbilical hernia repair Hx of colonoscopy Family History Mother Cancer Breast cancer Father No problems noted. 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 1. Little interest or pleasure in doing things: several days 2. Feeling down, depressed, or hopeless: several days 3. Trouble falling or staying asleep, or sleeping too much: several days 4. Feeling tired or having little energy: more than half the days 5. Poor appetite or overeating: several days 6. Feeling bad about yourself - or that you are a failure or have let yourself or your family down: not at all 7. Trouble concentrating on things, such as reading the newspaper or watching television: several days 8. Moving or speaking so slowly that other people could have noticed. Or the opposite - being so fidgety or restless that you have been moving around a lot more than usual: not at all 9. Thoughts that you would be better off or of hurting yourself in some way: not at all Total score: 7 Depression Screening Interpretation: Positive Depression Screening Follow-up: Existing condition and In treatment Depression Screening Done: Yes 86313 - PHQ-9 Billing: Yes Source: Developed by Drs. Andrea Stewart, Alana Cuello, Kenneth Lane and colleagues, with an educational parvez from [employer]. Thrive Questionnaire Date Thrive assessed: 02/11/23 JOSE-7 AMB Questionnaire JOSE-7 Date JOSE - 7 assessed: 04/23/23 Feeling nervous, anxious, or on edge: 0 = Not at all Not being able to stop or control worryin = Several days Worrying too much about different things: 0 = Not at all Trouble relaxin = Several days Being so restless that it is hard to sit still: 1 = Several days Becoming easily annoyed or irritable: 1 = Several days Feeling afraid as if something awful might happen: 0 = Not at all Total JOSE-7 score (0-4 normal; 5-9 mild; 10-14 moderate; 15-21 severe): 4 Source: Developed by Drs. Andrea Stewart, Alana Cuello, Kenneth Lane and colleagues, with an educational parvez from [employer]. Review of Systems Const Details: Const Denies chills, Denies fatigue, Denies fever(s), Denies headache(s) and Denies weakness ENT Denies dizziness and Denies headache(s) Card Denies chest pain, Denies lightheadedness, Denies dyspnea and Denies other (Palpitations) Resp Denies cough, Denies dyspnea, Denies wheezing and Denies other ( shortness of breath) GI Denies abdominal pain, Denies melena, Denies hematochezia, Denies change in bowel habits, Denies dyspepsia and Denies nausea Denies hematuria and Denies dysuria Musc Denies abnormal gait, Denies myalgias, Denies arthralgias, Denies numbness and Denies tingling Skin/Breast Denies rash, Denies unusual bruising and Denies wounds Neuro Denies abnormal gait, Denies dizziness, Denies headache(s), Denies memory loss, Denies numbness, Denies Sensory deficit (Neuro), Denies tingling and Denies weakness Psych Denies anxiety, Denies depression, Denies memory loss Endo Denies cold intolerance, Denies fatigue, Denies heat intolerance, Denies polydipsia and Denies polyuria Aller/Immun Denies wheezing Physical exam (Primary Care) Vital Signs: Last Vital Signs Temp 97.6 F 04/23/23 11:36 Pulse 77 04/23/23 11:36 Resp 13 04/23/23 11:36 BP 122/78 04/23/23 11:36 Pulse Ox 99 04/23/23 11:36 Oxygen Delivery Method Room Air 04/23/23 11:36 BMI result Body Mass Index 31.4 Tobacco/Smoking Status: Tobacco use Status Tobacco use date assessed 04/23/23 04/23/23 11:42 Patient Tobacco Use Status Former Tobacco user 04/23/23 11:34 e-Cigarette/Vaping Use Never Used 04/23/23 11:34 Depression Screening Interpretation: Positive Depression Screening Follow-up: Existing condition and In treatment Thrive Assessment: Date of Thrive Assessment Date Thrive assessed 02/11/23 04/23/23 11:34 Const Other: General: no acute distress and well developed Nutritional Appearance: well nourished Orientation/consciousness: patient oriented x3 HENMT Head: Yes normocephalic and Yes atraumatic Eyes General: appearance normal, both eyes and all related structures Pupils: Equal, round and reactive pupils present EOM: EOMs intact bilaterally Resp Effort & Inspection: normal respiratory effort Auscultation: clear to auscultation bilaterally Cardio Rate: regular rate Rhythm: regular rhythm Heart sounds: S1 normal heart sound present, S2 normal heart sound present, no gallops, no murmurs and no rubs GI Palpation (GI): No Abdominal aortic bruit present, Soft to palpation, nontender, No hepatosplenomegaly present and No Rebound tenderness present Auscultation: normal bowel sounds General: Yes no CVA tenderness Back/Spine/Pelvis Back: no CVA tenderness Cervical Spine: cervical ROM normal and No Cervical spine tenderness Thoracic/Lumbar Spine: thoraco-lumbar ROM normal, No pain with thoraco-lumbar ROM, No thoracic spinal tenderness and No lumbar spinal tenderness Extrem General: Yes normal to inspection, No edema and No calf tenderness Skin General: warm and dry. Normal skin color. Normal skin turgor Neuro General: patient oriented x3, gait normal and no focal neuro deficit Cranial nerves: Yes Equal, round and reactive pupils present Cognition (Neuro): normal cognition Gait exam (Neuro): Normal gait present Sensory Exam: No Sensory deficit (Neuro) Psych Appearance: grossly normal Affect: normal affect Attitude: cooperative Thought process: Normal thought process present Assessment and Plan Assessment & Plan (1) Anxiety and depression: Code(s): F41.9 - Anxiety disorder, unspecified; F32.9 - Major depressive disorder, single episode, unspecified Plan: PHQ-9 score is normal JOSE-7 score reveals mild anxiety Continue current treatment regimen Routine exercise encouraged He met with the community navigator who would follow up regarding his psychotherapy referral Follow-up in 3 months or return sooner with worsening or new symptoms Verbalized understanding and agreed with treatment plan (2) High cholesterol: Code(s): E78.00 - Pure hypercholesterolemia, unspecified Plan: He has not gotten his repeat lipid panel blood work done Continue to take atorvastatin fenofibrate as prescribed Advised to limit foods high in saturated fat and avoid foods high in trans fat Encouraged to get fasting blood work done. Will review results and make changes as needed Verbalized understanding and agreed with the plan Coding Level of Care Code Est Pt Level 3 (18276) Diagnoses Anxiety and depression F41.9; F32.9 High cholesterol E78.00
[2023-04-23 11:36] VITALS: BP 122/78; PULSE 77; RESP 13; TEMP 36.4; O2SAT 99; BMI 31.4
== END 2023-04-23 12:00 | disposition home or self-care (01) ==
PROVIDERS: PCP Hospitalist; Visit Provider Nurse Practitioner Family
DX: E78.00 Pure hypercholesterolemia, unspecified (principal); F41.9 Anxiety disorder, unspecified; F32.9 Major depressive disorder, single episode, unspecified
CPT/HCPCS: 99213

== ENCOUNTER 2023-04-25 14:38 | Outpatient (AMB) | payer BC, SELFPAY ==
--- NOTE | 2023-04-25 14:48 | A.OFFVIS_ITS ---
Intake Vital Signs 04/25/23 14:51 Height 5 ft 3 in Weight 177 lb BMI 31.4 BP 133/78 Blood Pressure Location Rt radial Position Sitting Pulse 73 Intake Visit Reasons: S/P EUA, sphincterotomy Intake Note: This patient presents for a post-op assessment status post EUA, biopsy of perianal skin. Patient c/o; reports itchiness, reports no rectal bleeding , pain or pressure. Raw Silk Grader Required: No Accompanied by: Self / Same As Patient Allergies No Known Allergies Allergy (Verified 04/25/23 14:52) HPI S/P EUA, sphincterotomy HPI Details He had undergone exam under anesthesia and biopsy of the perianal skin last 04/12/2022. He tolerated procedure well. He actually says that he denies any pain and that his itching has improved. He feels well overall. [facility] Medical History (Updated 04/25/23 @ 14:58 by Elder Barr MD) Pruritus ani Elevated cholesterol COPD (chronic obstructive pulmonary disease) Anxiety and depression ED (erectile dysfunction) Surgical History Hx of surgical procedure (~04/12/23) H/O umbilical hernia repair Hx of colonoscopy Family History Mother Cancer Breast cancer Father No problems noted. 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 Current occupational exposures/hazards: No Cognitive needs: No Hearing needs: Yes Vision needs: No Review of Systems Const Denies chills and Denies fever(s) Card Denies chest pain, Denies dyspnea and Denies dyspnea on exertion Resp Denies cough, Denies dyspnea and Denies dyspnea on exertion GI Denies hematochezia and Denies change in bowel habits Denies hematuria and Denies difficulty urinating Musc Denies back pain and Denies limited range of motion Neuro Denies focal weakness and Denies convulsions Psych Denies depression and Denies mood swings Physical Exam Vital Signs: Last Vital Signs Pulse 73 04/25/23 14:51 BP 133/78 04/25/23 14:51 BMI result Body Mass Index 31.4 Const General: comfortable and no acute distress Resp Effort & Inspection: normal respiratory effort GI Other: Biopsy site is actually well healed, no signs of inflammation, the perianal skin changes have improved significantly Assessment & Plan Assessment & Plan (1) Pruritus ani: Code(s): L29.0 - Pruritus ani Plan: Status post exam under anesthesia and biopsy of the perianal skin. He actually did not have any fissure. Biopsy shows lichen simplex chronicus. I explained to him that this is usually self-limiting. Since the perianal changes have improved significantly, I will hold off on any steroid cream for now. He can continue using the Calmoseptine for some itching although he does state that this is better I told him to come back to the office has any significant complaints down the line. Coding Level of Care Code Global (39707) Diagnoses Pruritus ani L29.0
[2023-04-25 14:51] VITALS: BP 133/78; PULSE 73; BMI 31.4
== END 2023-04-25 14:54 | disposition home or self-care (01) ==
PROVIDERS: PCP Nurse Practitioner Family; Visit Provider Surgery
DX: L29.0 Pruritus ani (principal)
CPT/HCPCS: 99024

== ENCOUNTER → 2023-04-25 14:38 | Outpatient (BNVA) | payer BC, SELFPAY | PROVIDERS: PCP Nurse Practitioner Family; Visit Provider Surgery ==

== ENCOUNTER 2023-06-24 10:20 | Outpatient (REF) | payer BC, SELFPAY ==
[2023-06-24 14:51] LABS: Cholesterol 157 mg/dL (<200); HDL Cholesterol 42 mg/dL (>40); LDL Cholesterol Calculated 71 mg/dL (<100); Triglycerides 220 mg/dL (<150)
== END 2023-06-24 10:21 | disposition home or self-care (01) ==
LOC: HO.WFDLDS 10:20
PROVIDERS: Visit Provider Nurse Practitioner Family
DX: E78.00 Pure hypercholesterolemia, unspecified (principal)
CPT/HCPCS: 36415; 80061

== ENCOUNTER 2023-07-23 08:02 | Outpatient (AMB) | payer BC, SELFPAY ==
[2023-07-23 08:09] VITALS: BP 122/74; PULSE 78; RESP 16; O2SAT 98; BMI 33.7
--- NOTE | 2023-07-23 08:09 | MHC.PC.OV ---
Vital Signs 07/23/23 08:09 Height 5 ft 3 in Weight 190 lb BMI 33.7 BP 122/74 Blood Pressure Location Rt brachial Position Sitting Respiration 16 Pulse 78 Pulse Source Pulse Oximeter Pulse Oximetry (%) 98 Oxygen Delivery Method Room Air Intake Visit Reasons: anxiety, depression Intake Note: Patient is here to follow up on anxiety and depression, and would like to talk about COPD med. Allergies No Known Allergies Allergy (Verified 07/23/23 08:17) Medication List - Last Reconciled 07/23/23 by Kimberly Alfaro CNP aripiprazole (Abilify) 2 mg PO DAILY 30 days atorvastatin 40 mg PO BEDTIME cyclobenzaprine 10 mg PO TID 30 days fenofibrate 54 mg PO DAILY 30 days fluoxetine 40 mg PO DAILY hydrocortisone 2.5% (Anusol-HC) 1 appl OK BID-QID PRN hydrocortisone 2.5% (Anusol-HC) 1 appl OK BID-QID PRN ibuprofen 600 mg PO Q6H PRN lidocaine 5% (Hemorrhoidal Relief) 1 appl topical TID PRN melatonin 10 mg PO BEDTIME menthol-zinc oxide 0.44-20.6 % (Calmoseptine) 1 appl topical QID PRN nitroglycerin 0.4%(w/w) (Rectiv) 1 inch OK BID oxycodone-acetaminophen 5-325 mg (Percocet) 1 tab PO Q4-6H PRN Tobacco use date assessed: 07/23/23 Dental Screening Dental Screen Date: 04/23/23 HPI HPI Comments History of Present Illness Details 48-year-old male presents for anxiety, depression, and hyperlipidemia follow-up. He admits to taking his medications as prescribed without adverse reactions. He reports control anxiety and depression symptoms on fluoxetine and Abilify. He states that he has been in contact with an office for therapy services has been providing documents to establish with them. He does not recall name of the facility. He notes that he uses albuterol via nebulizer for his COPD. However, he ran out of albuterol and requests a refill. No acute symptoms at this time He notes that he is still on a wait list with [facility] [place] [facility] Medical History (Updated 07/23/23 @ 08:33 by Kimberly Alfaro CNP) Pruritus ani Elevated cholesterol COPD (chronic obstructive pulmonary disease) Anxiety and depression ED (erectile dysfunction) Surgical History Hx of surgical procedure (~04/12/23) H/O umbilical hernia repair Hx of colonoscopy Family History Mother Cancer Breast cancer Father No problems noted. 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 1. Little interest or pleasure in doing things: not at all 2. Feeling down, depressed, or hopeless: not at all 3. Trouble falling or staying asleep, or sleeping too much: several days 4. Feeling tired or having little energy: nearly every day 5. Poor appetite or overeating: nearly every day 6. Feeling bad about yourself - or that you are a failure or have let yourself or your family down: not at all 7. Trouble concentrating on things, such as reading the newspaper or watching television: several days 8. Moving or speaking so slowly that other people could have noticed. Or the opposite - being so fidgety or restless that you have been moving around a lot more than usual: not at all 9. Thoughts that you would be better off or of hurting yourself in some way: not at all Total score: 8 Depression Screening Interpretation: Positive Depression Screening Follow-up: Existing condition and In treatment Depression Screening Done: Yes Source: Developed by Drs. Andrea Stewart, Alana Cuello, Kenneth Lane and colleagues, with an educational parvez from [employer]. Thrive Questionnaire Date Thrive assessed: 02/11/23 AUDIT C Alcohol Use Questionnaire (AUDIT-C) 1. How often do you have a drink containing alcohol?: Never 3. How often do you have six or more drinks on one occasion?: Never Total Score: 0 JOSE-7 AMB Questionnaire JOSE-7 Date JOSE - 7 assessed: 07/23/23 Feeling nervous, anxious, or on edge: 1 = Several days Not being able to stop or control worryin = Not at all Worrying too much about different things: 0 = Not at all Trouble relaxin = Several days Being so restless that it is hard to sit still: 1 = Several days Becoming easily annoyed or irritable: 1 = Several days Feeling afraid as if something awful might happen: 0 = Not at all Total JOSE-7 score (0-4 normal; 5-9 mild; 10-14 moderate; 15-21 severe): 4 Source: Developed by Drs. Andrea Stewart, Alana Cuello, Kenneth Lane and colleagues, with an educational parvez from [employer]. Review of Systems Const Details: Const Denies chills, Denies fatigue, Denies fever(s), Denies headache(s) and Denies weakness ENT Denies dizziness and Denies headache(s) Card Denies chest pain, Denies lightheadedness, Denies dyspnea and Denies other (Palpitations) Resp Denies cough, Denies dyspnea, Denies wheezing and Denies other ( shortness of breath) GI Denies abdominal pain, Denies melena, Denies hematochezia, Denies change in bowel habits, Denies dyspepsia and Denies nausea Denies hematuria and Denies dysuria Musc Denies abnormal gait, Denies myalgias, Denies arthralgias, Denies numbness and Denies tingling Skin/Breast Denies rash, Denies unusual bruising and Denies wounds Neuro Denies abnormal gait, Denies dizziness, Denies headache(s), Denies memory loss, Denies numbness, Denies Sensory deficit (Neuro), Denies tingling and Denies weakness Psych Denies anxiety, Denies depression, Denies memory loss Endo Denies cold intolerance, Denies fatigue, Denies heat intolerance, Denies polydipsia and Denies polyuria Aller/Immun Denies wheezing Physical exam (Primary Care) Tobacco/Smoking Status: Tobacco use Status Tobacco use date assessed 04/23/23 04/23/23 11:42 Patient Tobacco Use Status Former Tobacco user 04/23/23 11:34 e-Cigarette/Vaping Use Never Used 04/23/23 11:34 Depression Screening Interpretation: Positive Depression Screening Follow-up: Existing condition and In treatment Thrive Assessment: Date of Thrive Assessment Date Thrive assessed 02/11/23 04/23/23 12:14 Const Other: General: no acute distress and well developed Nutritional Appearance: well nourished Orientation/consciousness: patient oriented x3 HENMT Head: Yes normocephalic and Yes atraumatic Eyes General: appearance normal, both eyes and all related structures Pupils: Equal, round and reactive pupils present EOM: EOMs intact bilaterally Resp Effort & Inspection: normal respiratory effort Auscultation: clear to auscultation bilaterally Cardio Rate: regular rate Rhythm: regular rhythm Heart sounds: S1 normal heart sound present, S2 normal heart sound present, no gallops, no murmurs and no rubs GI Palpation (GI): No Abdominal aortic bruit present, Soft to palpation, nontender, No hepatosplenomegaly present and No Rebound tenderness present Auscultation: normal bowel sounds General: Yes no CVA tenderness Back/Spine/Pelvis Back: no CVA tenderness Cervical Spine: cervical ROM normal and No Cervical spine tenderness Thoracic/Lumbar Spine: thoraco-lumbar ROM normal, No pain with thoraco-lumbar ROM, No thoracic spinal tenderness and No lumbar spinal tenderness Extrem General: Yes normal to inspection, No edema and No calf tenderness Skin General: warm and dry. Normal skin color. Normal skin turgor Neuro General: patient oriented x3, gait normal and no focal neuro deficit Cranial nerves: Yes Equal, round and reactive pupils present Cognition (Neuro): normal cognition Gait exam (Neuro): Normal gait present Sensory Exam: No Sensory deficit (Neuro) Psych Appearance: grossly normal Affect: normal affect Attitude: cooperative Thought process: Normal thought process present Assessment and Plan Assessment & Plan (1) Anxiety and depression: Code(s): F41.9 - Anxiety disorder, unspecified; F32.9 - Major depressive disorder, single episode, unspecified Plan: Reports controlled depression and anxiety symptoms on current treatment PHQ-9 score reveals mild depression; JOSE-7 score is normal Continue to take Abilify 2 mg daily and fluoxetine 40 mg daily Routine exercise encouraged Follow up with worsening or new symptoms Verbalized understanding and agreed with the plan (2) High cholesterol: Code(s): E78.00 - Pure hypercholesterolemia, unspecified Plan: Recent triglycerides level is elevated, 220; total cholesterol, LDL, and HDL levels are normal Will increase fenofibrate 120 mg daily. Take as prescribed. Continue to take atorvastatin 40 mg every night Advised to limit foods high in saturated fat and avoid foods high in trans fat Routine exercise encouraged Will recheck lipid panel level in 6 weeks. Advised to fast for 10-12 hours, may drink water only, and get blood work done before his next visit Follow-up in 6 weeks Verbalized understanding and agreed with treatment plan (3) COPD (chronic obstructive pulmonary disease): Code(s): J44.9 - Chronic obstructive pulmonary disease, unspecified Plan: No acute symptoms Albuterol ordered. Advised to use via nebulizer as prescribed Follow-up with symptoms or concerns Verbalized understanding and agreed with treatment plan Orders: Orders Lipid Panel 6 Weeks E78.00 - Pure hypercholesterolemia, unspecified Medications: New fenofibrate 120 mg PO DAILY 30 days 30 tabs 3RF albuterol sulfate 2.5 mg (3 mL) inhalation Q4-6H 30 days PRN 90 mL 3RF shortness of breath or wheezing Discontinued fenofibrate Discontinued Reason: Doctor's Order 54 mg PO DAILY 30 days 30 tabs 3RF Coding Level of Care Code Est Pt Level 4 (30845) Diagnoses Anxiety and depression F41.9; F32.9 High cholesterol E78.00 COPD (chronic obstructive pulmonary disease) J44.9
== END 2023-07-23 08:33 | disposition home or self-care (01) ==
PROVIDERS: Visit Provider Nurse Practitioner Family
DX: J44.9 Chronic obstructive pulmonary disease, unspecified (principal); F41.9 Anxiety disorder, unspecified; F32.9 Major depressive disorder, single episode, unspecified; E78.00 Pure hypercholesterolemia, unspecified
CPT/HCPCS: 99214

== ENCOUNTER 2023-09-11 08:06 | Outpatient (REF) | payer BC, SELFPAY ==
[2023-09-11 12:35] LABS: Cholesterol 134 mg/dL (<200); HDL Cholesterol 50 mg/dL (>40); LDL Cholesterol Calculated 64 mg/dL (<100); Triglycerides 103 mg/dL (<150)
== END 2023-09-11 08:07 | disposition home or self-care (01) ==
LOC: HO.WFDLDS 08:06
PROVIDERS: Visit Provider Nurse Practitioner Family
DX: E78.00 Pure hypercholesterolemia, unspecified (principal)
CPT/HCPCS: 36415; 80061

== ENCOUNTER 2023-09-17 14:58 | Outpatient (AMB) | payer BC, SELFPAY ==
--- NOTE | 2023-09-17 15:24 | MHC.PC.OV ---
Vital Signs 09/17/23 15:25 Height 5 ft 3 in Weight 190 lb 8 oz BMI 33.7 BP 108/74 Blood Pressure Location Rt brachial Position Sitting Respiration 14 Pulse 85 Pulse Source Pulse Oximeter Temp 97.6 F Temp Source Temporal Artery Scan Pulse Oximetry (%) 98 Oxygen Delivery Method Room Air Intake Visit Reasons: meds f/u Septic Technician Required: No Accompanied by: Self / Same As Patient Allergies No Known Allergies Allergy (Verified 09/17/23 15:40) Medication List - Last Reconciled 09/17/23 by Kimberly Alfaro CNP albuterol sulfate 2.5 mg (3 mL) inhalation Q4-6H PRN 30 days aripiprazole (Abilify) 2 mg PO DAILY 30 days atorvastatin 40 mg PO BEDTIME cyclobenzaprine 10 mg PO TID 30 days fenofibrate 120 mg PO DAILY 30 days fluoxetine 40 mg PO DAILY hydrocortisone 2.5% (Anusol-HC) 1 appl [place] BID-QID PRN lidocaine 5% (Hemorrhoidal Relief) 1 appl topical TID PRN melatonin 10 mg PO BEDTIME menthol-zinc oxide 0.44-20.6 % (Calmoseptine) 1 appl topical QID PRN nitroglycerin 0.4%(w/w) (Rectiv) 1 inch OR BID Tobacco use date assessed: 07/23/23 Dental Screening Dental Screen Date: 09/17/23 Did you have a dental visit in the last 12 months?: No Did you have a dental problem in the last 6 months where you did not have access to dental care?: No Was dental information given to patient?: Patient has dentist HPI HPI Comments History of Present Illness Details 48-year-old male presents for hyperlipidemia follow-up He admits to taking his medications as prescribed without adverse reactions He notes controlled anxiety and depressive symptoms on current treatment regimen He states that he wants to lose weight. He was informed by [facility] weight management that he was on their wait list He offers no complaints and denies acute symptoms at this time COUNT INCLUDES [facility] Medical History Pruritus ani Elevated cholesterol COPD (chronic obstructive pulmonary disease) Anxiety and depression ED (erectile dysfunction) Surgical History Hx of surgical procedure (~04/12/23) H/O umbilical hernia repair Hx of colonoscopy Family History Mother Cancer Breast cancer Father No problems noted. 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 1. Little interest or pleasure in doing things: more than half the days 2. Feeling down, depressed, or hopeless: several days 3. Trouble falling or staying asleep, or sleeping too much: more than half the days 4. Feeling tired or having little energy: nearly every day 5. Poor appetite or overeating: nearly every day 6. Feeling bad about yourself - or that you are a failure or have let yourself or your family down: not at all 7. Trouble concentrating on things, such as reading the newspaper or watching television: several days 8. Moving or speaking so slowly that other people could have noticed. Or the opposite - being so fidgety or restless that you have been moving around a lot more than usual: not at all 9. Thoughts that you would be better off or of hurting yourself in some way: not at all Total score: 12 Depression Screening Interpretation: Positive Depression Screening Follow-up: Existing condition and In treatment Depression Screening Done: Yes Source: Developed by Drs. Andrea Stewart, Alana Cuello, Kenneth Lane and colleagues, with an educational parvez from [employer]. Thrive Questionnaire Date Thrive assessed: 02/11/23 JOSE-7 AMB Questionnaire JOSE-7 Date JOSE - 7 assessed: 09/17/23 Feeling nervous, anxious, or on edge: 0 = Not at all Not being able to stop or control worryin = Not at all Worrying too much about different things: 0 = Not at all Trouble relaxin = Several days Being so restless that it is hard to sit still: 1 = Several days Becoming easily annoyed or irritable: 1 = Several days Feeling afraid as if something awful might happen: 0 = Not at all Total JOSE-7 score (0-4 normal; 5-9 mild; 10-14 moderate; 15-21 severe): 3 Source: Developed by Drs. Andrea Stewart, Alana Cuello, Kenneth Lane and colleagues, with an educational parvez from [employer]. Review of Systems Const Details: Const Denies chills, Denies fatigue, Denies fever(s), Denies headache(s) and Denies weakness ENT Denies dizziness and Denies headache(s) Card Denies chest pain, Denies lightheadedness, Denies dyspnea and Denies other (Palpitations) Resp Denies cough, Denies dyspnea, Denies wheezing and Denies other ( shortness of breath) GI Denies abdominal pain, Denies melena, Denies hematochezia, Denies change in bowel habits, Denies dyspepsia and Denies nausea Denies hematuria and Denies dysuria Musc Denies abnormal gait, Denies myalgias, Denies arthralgias, Denies numbness and Denies tingling Skin/Breast Denies rash, Denies unusual bruising and Denies wounds Neuro Denies abnormal gait, Denies dizziness, Denies headache(s), Denies memory loss, Denies numbness, Denies Sensory deficit (Neuro), Denies tingling and Denies weakness Psych Denies anxiety, Denies depression, Denies memory loss Endo Denies cold intolerance, Denies fatigue, Denies heat intolerance, Denies polydipsia and Denies polyuria Aller/Immun Denies wheezing Physical exam (Primary Care) Vital Signs: Last Vital Signs Temp 97.6 F 09/17/23 15:25 Pulse 85 09/17/23 15:25 Resp 14 09/17/23 15:25 BP 108/74 09/17/23 15:25 Pulse Ox 98 09/17/23 15:25 Oxygen Delivery Method Room Air 09/17/23 15:25 BMI result Body Mass Index 33.7 Tobacco/Smoking Status: Tobacco use Status Tobacco use date assessed 07/23/23 09/17/23 15:25 Patient Tobacco Use Status Former Tobacco user 09/17/23 15:25 e-Cigarette/Vaping Use Never Used 09/17/23 15:25 PHQ-9: PHQ-9 Score PHQ-9: Total score 9 09/17/23 15:33 Depression Screening Interpretation: Positive Depression Screening Follow-up: Existing condition and In treatment Thrive Assessment: Date of Thrive Assessment Date Thrive assessed 02/11/23 09/17/23 15:25 Const Other: General: no acute distress and well developed Nutritional Appearance: well nourished Orientation/consciousness: patient oriented x3 HENMT Head: Yes normocephalic and Yes atraumatic Eyes General: appearance normal, both eyes and all related structures Pupils: Equal, round and reactive pupils present EOM: EOMs intact bilaterally Resp Effort & Inspection: normal respiratory effort Auscultation: clear to auscultation bilaterally Cardio Rate: regular rate Rhythm: regular rhythm Heart sounds: S1 normal heart sound present, S2 normal heart sound present, no gallops, no murmurs and no rubs GI Palpation (GI): No Abdominal aortic bruit present, Soft to palpation, nontender, No hepatosplenomegaly present and No Rebound tenderness present Auscultation: normal bowel sounds General: Yes no CVA tenderness Back/Spine/Pelvis Back: no CVA tenderness Cervical Spine: cervical ROM normal and No Cervical spine tenderness Thoracic/Lumbar Spine: thoraco-lumbar ROM normal, No pain with thoraco-lumbar ROM, No thoracic spinal tenderness and No lumbar spinal tenderness Extrem General: Yes normal to inspection, No edema and No calf tenderness Skin General: warm and dry. Normal skin color. Normal skin turgor Neuro General: patient oriented x3, gait normal and no focal neuro deficit Cranial nerves: Yes Equal, round and reactive pupils present Cognition (Neuro): normal cognition Gait exam (Neuro): Normal gait present Sensory Exam: No Sensory deficit (Neuro) Psych Appearance: grossly normal Affect: normal affect Attitude: cooperative Thought process: Normal thought process present Assessment and Plan Assessment & Plan (1) High cholesterol: Code(s): E78.00 - Pure hypercholesterolemia, unspecified Plan: Recent triglyceride, total cholesterol, LDL, and HDL levels are normal, 103, 134, 64, and 50 respectively Continue current treatment regimen Advised to limit foods in saturated fat and avoid foods high in trans fat Routine exercise encouraged Will recheck lipid panel. Advised to fast for 10-12 hours, may drink, and get blood work done before his next visit Follow up 3 months for hyperlipidemia, anxiety, and depression or sooner with symptoms or concerns Verbalized understanding and agreed with the treatment plan (2) Anxiety and depression: Code(s): F41.9 - Anxiety disorder, unspecified; F32.9 - Major depressive disorder, single episode, unspecified Plan: Reports controlled anxiety and depressive symptoms PHQ-9 score revealed moderate depression. JOSE-7 score is normal Continue current treatment regimen Routine exercise encouraged Follow-up in 3 months or sooner with symptoms or concerns Verbalized understanding and agreed with treatment (3) Obesity (BMI 30.0-34.9): Code(s): E66.9 - Obesity, unspecified Plan: He wants to lose weight. He was informed by [facility] weight management that he was on their wait list Healthy diet and routine exercise encouraged The certified medical aide will contact [facility] weight management regarding status on their wait list Will make changes to his care plan as needed Orders: Orders Lipid Panel 3 Months E78.00 - Pure hypercholesterolemia, unspecified Medications: Refilled aripiprazole (Abilify) 2 mg PO DAILY 30 days 30 tabs 3RF atorvastatin 40 mg PO BEDTIME 90 tabs 1RF E78.00 - Pure hypercholesterolemia, unspecified Coding Level of Care Code Est Pt Level 4 (75064) Complex EM visit Add On G2211 Diagnoses High cholesterol E78.00 Anxiety and depression F41.9; F32.9 Obesity (BMI 30.0-34.9) E66.9
[2023-09-17 15:25] VITALS: BP 108/74; PULSE 85; RESP 14; TEMP 36.4; O2SAT 98; BMI 33.7
== END 2023-09-17 15:59 | disposition home or self-care (01) ==
PROVIDERS: PCP Nurse Practitioner Family; Visit Provider Nurse Practitioner Family
DX: E78.00 Pure hypercholesterolemia, unspecified (principal); F41.9 Anxiety disorder, unspecified; E66.9 Obesity, unspecified; Z68.33 Body mass index [BMI] 33.0-33.9, adult; F32.9 Major depressive disorder, single episode, unspecified
CPT/HCPCS: 99214

== ENCOUNTER 2023-12-11 11:40 | Outpatient (AMB) | payer BC, SELFPAY ==
--- NOTE | 2023-12-11 11:50 | A.OFFPC_ITS ---
Vital Signs 12/11/23 11:57 Height 5 ft 3 in Weight 190 lb BMI 33.7 BP 124/84 Blood Pressure Location Lt brachial Position Sitting Respiration 16 Pulse 84 Pulse Source Pulse Oximeter Temp 97.7 F Temp Source Oral Pulse Oximetry (%) 95 Oxygen Delivery Method Room Air Intake Visit Reasons: Follow up medication Intake Note: patient here to follow up on medication. 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 Allergies No Known Allergies Allergy (Verified 12/11/23 12:30) Medication List - Last Reconciled 12/11/23 by Kimberly Alfaro CNP albuterol sulfate 2.5 mg (3 mL) inhalation Q4-6H PRN 30 days aripiprazole (Abilify) 2 mg PO DAILY 30 days atorvastatin 40 mg PO BEDTIME cyclobenzaprine 10 mg PO TID 30 days fenofibrate 120 mg PO DAILY 30 days fluoxetine 40 mg PO DAILY hydrocortisone 2.5% (Anusol-HC) 1 appl [place] BID-QID PRN lidocaine 5% (Hemorrhoidal Relief) 1 appl topical TID PRN melatonin 10 mg PO BEDTIME menthol-zinc oxide 0.44-20.6 % (Calmoseptine) 1 appl topical QID PRN nitroglycerin 0.4%(w/w) (Rectiv) 1 inch KS BID Tobacco use date assessed: 12/11/23 Dental Screening Dental Screen Date: 12/11/23 Did you have a dental visit in the last 12 months?: No Did you have a dental problem in the last 6 months where you did not have access to dental care?: No Was dental information given to patient?: Patient declined HPI HPI Comments History of Present Illness Details 48-year-old male presents for hyperlipid emia, anxiety, and depression follow-up He admits to taking his medications as prescribed without adverse reactions He notes that he generally eats unhealthy and sleep well. He walks routinely He reports controlled anxiety and depressive symptoms He has not been able to lose weight and has not head from [facility] [place] He did not get lipid panel blood work done as planned for this visit [facility] Medical History Pruritus ani Elevated cholesterol COPD (chronic obstructive pulmonary disease) Anxiety and depression ED (erectile dysfunction) Surgical History Hx of surgical procedure (~04/12/23) H/O umbilical hernia repair Hx of colonoscopy Family History Mother Cancer Breast cancer Father No problems noted. 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 1. Little interest or pleasure in doing things: more than half the days 2. Feeling down, depressed, or hopeless: several days 3. Trouble falling or staying asleep, or sleeping too much: several days 4. Feeling tired or having little energy: more than half the days 5. Poor appetite or overeating: not at all 6. Feeling bad about yourself - or that you are a failure or have let yourself or your family down: not at all 7. Trouble concentrating on things, such as reading the newspaper or watching television: several days 8. Moving or speaking so slowly that other people could have noticed. Or the opposite - being so fidgety or restless that you have been moving around a lot more than usual: not at all 9. Thoughts that you would be better off or of hurting yourself in some way: not at all Total score: 7 Depression Screening Interpretation: Positive Depression Screening Follow-up: Existing condition and In treatment Depression Screening Done: Yes Source: Developed by Drs. Andrea Stewart, Alana Cuello, Kenneth Lane and colleagues, with an educational parvez from [employer]. Thrive Questionnaire Date Thrive assessed: 02/11/23 JOSE-7 AMB Questionnaire JOSE-7 Date JOSE - 7 assessed: 12/11/23 Feeling nervous, anxious, or on edge: 0 = Not at all Not being able to stop or control worryin = Not at all Worrying too much about different things: 0 = Not at all Trouble relaxin = Several days Being so restless that it is hard to sit still: 1 = Several days Becoming easily annoyed or irritable: 1 = Several days Feeling afraid as if something awful might happen: 0 = Not at all Total JOSE-7 score (0-4 normal; 5-9 mild; 10-14 moderate; 15-21 severe): 3 Source: Developed by Drs. Andrea Stewart, Alana Cuello, Kenneth Lane and colleagues, with an educational parvez from [employer]. JOSE-7 Assessment Billing JOSE-7 Assessment Tool: JOSE-7 Assessment 61610 Review of Systems Const Details: Const Denies chills, Denies fatigue, Denies fever(s), Denies headache(s) and Denies weakness ENT Denies dizziness and Denies headache(s) Card Denies chest pain, Denies lightheadedness, Denies dyspnea and Denies other (P alpitations) Resp Denies cough, Denies dyspnea, Denies wheezing and Denies other ( shortness of breath) GI Denies abdominal pain, Denies melena, Denies hematochezia, Denies change in bowel habits, Denies dyspepsia and Denies nausea Denies hematuria and Denies dysuria Musc Denies abnormal gait, Denies myalgias, Denies arthralgias, Denies numbness and Denies tingling Skin/Breast Denies rash, Denies unusual bruising and Denies wounds Neuro Denies abnormal gait, Denies dizziness, Denies headache(s), Denies memory loss, Denies numbness, Denies Sensory deficit (Neuro), Denies tingling and Denies weakness Psych Denies anxiety, Denies depression, Denies memory loss Endo Denies cold intolerance, Denies fatigue, Denies heat intolerance, Denies polydipsia and Denies polyuria Aller/Immun Denies wheezing Physical exam (Primary Care) Vital Signs: Last Vital Signs Temp 97.7 F 12/11/23 11:57 Pulse 84 12/11/23 11:57 Resp 16 12/11/23 11:57 BP 124/84 12/11/23 11:57 Pulse Ox 95 12/11/23 11:57 Oxygen Delivery Method Room Air 12/11/23 11:57 BMI result Body Mass Index 33.7 Tobacco/Smoking Status: Tobacco use Status Tobacco use date assessed 12/11/23 12/11/23 12:00 Patient Tobacco Use Status Former Tobacco user 12/11/23 11:52 e-Cigarette/Vaping Use Never Used 12/11/23 11:52 Depression Screening Interpretation: Positive Depression Screening Follow-up: Existing condition and In treatment Thrive Assessment: Date of Thrive Assessment Date Thrive assessed 02/11/23 12/11/23 11:52 Const Other: General: no acute distress and well developed Nutritional Appearance: well nourished Orientation/consciousness: patient oriented x3 HENMT Head: Yes normocephalic and Yes atraumatic Eyes General: appearance normal, both eyes and all related structures Pupils: Equal, round and reactive pupils present EOM: EOMs intact bilaterally Resp Effort & Inspection: normal respiratory effort Auscultation: clear to auscultation bilaterally Cardio Rate: regular rate Rhythm: regular rhythm Heart sounds: S1 normal heart sound present, S2 normal heart sound present, no gallops, no murmurs and no rubs GI Palpation (GI): No Abdominal aortic bruit present, Soft to palpation, nontender, No hepatosplenomegaly present and No Rebound tenderness present Auscultation: normal bowel sounds General: Yes no CVA tenderness Back/Spine/Pelvis Back: no CVA tenderness Cervical Spine: cervical ROM normal and No Cervical spine tenderness Thoracic/Lumbar Spine: thoraco-lumbar ROM normal, No pain with thoraco-lumbar ROM, No thoracic spinal tenderness and No lumbar spinal tenderness Extrem General: Yes normal to inspection, No edema and No calf tenderness Skin General: warm and dry. Normal skin color. Normal skin turgor Neuro General: patient oriented x3, gait normal and no focal neuro deficit Cranial nerves: Yes Equal, round and reactive pupils present Cognition (Neuro): normal cognition Gait exam (Neuro): Normal gait present Sensory Exam: No Sensory deficit (Neuro) Psych Appearance: grossly normal Affect: normal affect Attitude: cooperative Thought process: Normal thought process present Assessment and Plan Assessment & Plan (1) High cholesterol: Code(s): E78.00 - Pure hypercholesterolemia, unspecified Plan: He did not get lipid panel blood work done for this visit. Recent lipid panel level was unremarkable Advised to get fasting blood work done before his next visit Follow-up in 9 weeks for an extended physical exam or sooner with symptoms or concerns Verbalized understanding and agreed with the plan (2) Anxiety and depression: Code(s): F41.9 - Anxiety disorder, unspecified; F32.9 - Major depressive disorder, single episode, unspecified Plan: Reports controlled depressive and anxiety symptoms PHQ-9 score revealed mild depression. JOSE-7 score is normal Continue current treatment regimen Routine exercise encouraged Follow-up with new or worsening symptoms Verbalized understanding and agreed with the plan (3) Obesity (BMI 30.0-34.9): Code(s): E66.9 - Obesity, unspecified Plan: He has not been able to lose weight. He has been making on healthy dietary choices. He walks routinely. He has not been contacted by [facility] weight man ag[place] Healthy diet and routine exercise encouraged Referred to [facility] dietitian Verbalized understanding and agreed with the treatment plan Orders: Orders Comprehensive [place]. Panel Fast Today Z00.00 - Encounter for general adult medical examination without abnormal findings UA CC w/rflx Micro + Cult Today Z00.00 - Encounter for general adult medical examination without abnormal findings Microalbumin, Random (w Creat) Today Z00.00 - Encounter for general adult medical examination without abnormal findings Complete Blood Count Auto Diff Today Z00.00 - Encounter for general adult medical examination without abnormal findings TSH reflex Free T4 Today Z00.00 - Encounter for general adult medical examination without abnormal findings Referrals [facility] Referral E66.9 - Obesity, unspecified Coding Level of Care Code Est Pt Level 4 (95856) Diagnoses High cholesterol E78.00 Anxiety and depression F41.9; F32.9 Obesity (BMI 30.0-34.9) E66.9 Additional Codes JOSE-7 Assessment Billing - JOSE-7 Assessment Tool: JOSE-7 Assessment 68016 ([id number])
[2023-12-11 11:57] VITALS: BP 124/84; PULSE 84; RESP 16; TEMP 36.5; O2SAT 95; BMI 33.7
== END 2023-12-11 12:50 | disposition home or self-care (01) ==
PROVIDERS: PCP Nurse Practitioner Family; Visit Provider Nurse Practitioner Family
DX: E78.00 Pure hypercholesterolemia, unspecified (principal); F41.9 Anxiety disorder, unspecified; E66.9 Obesity, unspecified; Z68.33 Body mass index [BMI] 33.0-33.9, adult; F32.9 Major depressive disorder, single episode, unspecified
CPT/HCPCS: 99214

== ENCOUNTER 2023-12-31 12:28 | Outpatient (AMB) | payer BC, SELFPAY ==
--- NOTE | 2023-12-31 12:33 | A.OFFVIS_ITS ---
VS Expanded 12/31/23 12:34 12/31/23 12:46 Height 5 ft 3 in 5 ft 3 in Weight 187 lb 13.341 oz 187 lb BMI 33.3 33.1 Intake Visit Reasons: Obesity/LVM Allergies No Known Allergies Allergy (Verified 12/11/23 12:30) Nutrition Presentation Details: Pt presetns for MNT for obesity Pt has hx of COPD Typical meal intake 4 am coffee /equal/milk , donut or sand bagel sausage /egg cheese hash browns (varies ) 1:30 pm pizza pepperoni /soda or sand and soda snack 8-9 pm pasta/veg/meat or mac and cheese or cereal with milk food frequency fish : 0-wk fruits: not including yogurt: o x/wk physical activity - daily at work eoth/smoking : quit in 2008 BS Monitoring Most Recent Diabetes Results: Cholesterol 134 mg/dL (<200) 09/11/23 HDL Cholesterol 50 mg/dL (>40) 09/11/23 Triglycerides 103 mg/dL (<150) 09/11/23 ZUE-Igkhxgn-Oj.Jeor Equation Height: 5 ft 3 in Weight: 187 lb Resting Metabolic Rate: 1621.25 Calculated Activity Level: Mild Activity Calories Needed to Maintain Weight: 2229.22 Diagnosis Nutrition problem #1: food nutri know defi As related to (etiology) #1: diagnosis As evidenced by (sign/symptom) #1: knowledge deficit of diet PFSH Medical History Pruritus ani Elevated cholesterol COPD (chronic obstructive pulmonary disease) Anxiety and depression ED (erectile dysfunction) Surgical History Hx of surgical procedure (~04/12/23) H/O umbilical hernia repair Hx of colonoscopy Family History Mother Cancer Breast cancer Father No problems noted. 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 Current occupational exposures/hazards: No Cognitive needs: No Hearing needs: Yes Vision needs: No Assessment & Plan Assessment & Plan (1) Obesity (BMI 30.0-34.9): Code(s): E66.9 - Obesity, unspecified Category: Medical Plan: Wt: 85 Kg ( 12/30 ) Est kcal needs as per MSJ: 2200 (40% carb, 30% protein/fat) Est fluid needs as per 25-30 ml/d: 2600 Est prot per day as per 1 g/kg bw: 85 Recommend fiber intake : 8-10 g per day and gradually increase to 25-28 g per day for women and 35-38 g for men or as tolerated Recommend sodium intake per day : less than 2000 mg Educated patient on: ( R = reviewed V = verbalizes understanding N/R = needs review N/A = not applicable * Food sources of carbohydrate, adequate serving sizes and its role in various health conditions: R ,v * Differences between complex carbohydrates a simple carbohydrates, role of fiber in diet: R * Lean protein sources of foods: R V NR * Differences between types of fats and role in diet (mono on saturated fat fatty acids, saturated fatty acids, trans fats): R basic * Food sources of sodium in salt and healthy modifications for heart health in kidney health: R V R/V * Vitamins and minerals: R V N/R * Healthy plate method concept: R V N/R * Physical activity: Benefits a precaution: R V N/R Plan Goal wt 155 lbs Patient Instructions: Choose foods with fiber example have a fruit in AM in place of pastries Add lettuce/peppers/vegetables to your sandwiches (tuna sand as example twice a week) 3 times a week follow healthy plate method see meal plan ideas low in fat and high in fiber Coding Level of Care Code Nutr Indiv Intake (80317) Diagnoses Obesity (BMI 30.0-34.9) E66.9 Time Spent (min) 30
[2023-12-31 12:34] VITALS: BMI 33.3
[2023-12-31 12:46] VITALS: BMI 33.1
== END 2023-12-31 13:08 | disposition home or self-care (01) ==
PROVIDERS: PCP Nurse Practitioner Family; Visit Provider Dietitian, Registered
DX: E66.9 Obesity, unspecified (principal)

== ENCOUNTER → 2023-12-31 12:28 | Outpatient (BNVA) | payer BC, SELFPAY | PROVIDERS: PCP Nurse Practitioner Family; Visit Provider Dietitian, Registered | DX: E66.9 Obesity, unspecified (principal); Z68.33 Body mass index [BMI] 33.0-33.9, adult; Z71.3 Dietary counseling and surveillance | CPT/HCPCS: 97802 ==

== ENCOUNTER 2024-02-18 12:34 | Outpatient (AMB) | payer BC, SELFPAY ==
[2024-02-18 13:06] VITALS: BMI 33.1
--- NOTE | 2024-02-18 13:06 | A.OFFVIS_ITS ---
VS Expanded 02/18/24 13:06 Height 5 ft 3 in Weight 186 lb 11.704 oz BMI 33.1 Intake Visit Reasons: Obesity/LVM Allergies No Known Allergies Allergy (Verified 12/11/23 12:30) Nutrition Presentation Details: Pt presents for MNT f/u for obesity Pt presents with during this appt Working on incorporating fruits in place of juices challenges: fast eater Reports having 3 large cups of coffee per day (w caffeine) , reports significant reduction from 10+ BS Monitoring Most Recent Diabetes Results: Cholesterol 134 mg/dL (<200) 09/11/23 HDL Cholesterol 50 mg/dL (>40) 09/11/23 Triglycerides 103 mg/dL (<150) 09/11/23 PFSH Medical History Pruritus ani Elevated cholesterol COPD (chronic obstructive pulmonary disease) Anxiety and depression ED (erectile dysfunction) Surgical History Hx of surgical procedure (~04/12/23) H/O umbilical hernia repair Hx of colonoscopy Family History Mother Cancer Breast cancer Father No problems noted. 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 Current occupational exposures/hazards: No Cognitive needs: No Hearing needs: Yes Vision needs: No Assessment & Plan Assessment & Plan (1) Obesity (BMI 30.0-34.9): Code(s): E66.9 - Obesity, unspecified Category: Medical Plan: Wt: 85 Kg ( 12/30 ), 03/01 Est kcal needs as per MSJ: 2200 (40% carb, 30% protein/fat) Est fluid needs as per 25-30 ml/d: 2600 Est prot per day as per 1 g/kg bw: 85 Recommend fiber intake : 8-10 g per day and gradually increase to 25-28 g per day for women and 35-38 g for men or as tolerated Recommend sodium intake per day : less than 2000 mg Educated patient on: ( R = reviewed V = verbalizes understanding N/R = needs review N/A = not applicable * Food sources of carbohydrate, adequate serving sizes and its role in various health conditions: R ,v * Differences between complex carbohydrates a simple carbohydrates, role of fiber in diet: R * Lean protein sources of foods: R * Differences between types of fats and role in diet (mono on saturated fat fatty acids, saturated fatty acids, trans fats): R basic * Food sources of sodium in salt and healthy modifications for heart health in kidney health: R V R/V * Vitamins and minerals: R V N/R * Healthy plate method concept: R V N/R * Physical activity: Benefits a precaution: R V N/R Plan Goal wt 155 lbs Patient Instructions: Work on choosing lower sugar cereals (ex choose bran flakes with banana) Replace a side at a restaurant with a fruit choice Continue practicing mindful eating Coding Level of Care Code Nutr Indiv Subseq (23222) Diagnoses Obesity (BMI 30.0-34.9) E66.9 Time Spent (min) 30
== END 2024-02-18 13:42 | disposition home or self-care (01) ==
PROVIDERS: PCP Nurse Practitioner Family; Visit Provider Dietitian, Registered
DX: E66.9 Obesity, unspecified (principal)

== ENCOUNTER → 2024-02-18 12:34 | Outpatient (BNVA) | payer BC, SELFPAY | PROVIDERS: PCP Nurse Practitioner Family; Visit Provider Dietitian, Registered | DX: E66.9 Obesity, unspecified (principal); Z68.33 Body mass index [BMI] 33.0-33.9, adult; Z71.3 Dietary counseling and surveillance | CPT/HCPCS: 97803 ==

== ENCOUNTER 2024-03-02 11:13 | Outpatient (REF) | payer BC, SELFPAY ==
[2024-03-02 14:19] LABS: Appearance Urine Clear; Color Urine Yellow; Glucose Urine UA Negative (Negative); Leukocyte Esterase Urine Negative (Negative); Nitrite Urine Negative (Negative); PH 5.5 (5.0-9.0); Urine Blood Negative (Negative); Urine Ketones Negative (Negative); Urine Protein Negative (Neg-Trace)
[2024-03-02 14:23] LABS: MANUAL DIFF FLAG NO
[2024-03-02 14:28] LABS: Basophils Percent Auto 0.4 % (0-2); Eosinophils Absolute Auto 0.2 X10*3/uL (0.0-0.4); Eosinophils Percent Auto 2.3 % (0-4); Hemoglobin 13.3 g/dl (14.0-18.0); Imm Gran Abs Auto 0.02 X10*3/uL (0.00-0.03); Imm Gran Pct Auto 0.3 % (0.0-0.4); Lymphocytes Absolute Auto 1.5 X10*3/uL (1.2-4.9); Lymphocytes Percent Auto 21.8 % (20-40); Mean Corpuscular HGB Conc 34.1 g/dl (31.0-36.0); Mean Corpuscular Hemoglobin 30.7 pg (27.0-33.0); Mean Corpuscular Volume 90.1 fL (80.0-98.0); Mean Platelet Volume 9.1 fL (9.4-12.4); Monocytes Absolute Auto 0.6 X10*3/uL (0.1-1.2); Neutrophils Absolute Auto 4.7 x10*3/uL (2.0-8.3); Neutrophils Percent Auto 67.2 % (45-73); Platelet Count 274 X10*3/uL (160-400); Red Blood Count 4.33 X10*6/uL (4.60-5.80); Red Cell Distribution Width 13.1 % (11.0-16.0)
[2024-03-02 15:02] LABS: Alanine Aminotransferase 29 U/L (0-40); Alkaline Phosphatase 58 U/L (39-117); Anion Gap 13 (12-20); Aspartate Amino Transferase 28 U/L (5-37); Bilirubin Total 0.4 mg/dL (0.0-1.0); Blood Urea Nitrogen 11 mg/dL (9-16); Calcium 8.9 mg/dL (8.4-10.2); Carbon Dioxide 23 mmol/L (22-29); Chloride 107 mmol/L (96-108); Cholesterol 160 mg/dL (<200); Estimated Glomerular Filt Rate > 60; Glucose Fasting 111 mg/dL (60-99); HDL Cholesterol 38 mg/dL (>40); LDL Cholesterol Calculated 87 mg/dL (<100); Potassium 3.5 mmol/L (3.3-5.1); Sodium 139 mmol/L (135-145); Total Protein 7.1 g/dL (6.5-8.0); Triglycerides 177 mg/dL (<150)
[2024-03-02 15:04] LABS: Creatinine Urine 176.45 mg/dL; Microalbum/Creatinine Ratio Ur 3.9 ug/mg cr (<30)
[2024-03-02 15:08] LABS: TSH reflex Free T4 0.97 uIU/mL (0.32-4.0)
== END 2024-03-02 11:14 | disposition home or self-care (01) ==
LOC: HO.WFDLDS 11:13
PROVIDERS: Visit Provider Nurse Practitioner Family
DX: Z00.00 Encounter for general adult medical examination without abnormal findings (principal); E78.00 Pure hypercholesterolemia, unspecified
CPT/HCPCS: 36415; 80053; 80061; 81003; 82043; 82570; 84443; 85025

== ENCOUNTER 2024-03-03 10:15 | Outpatient (AMB) | payer BC, SELFPAY ==
--- NOTE | 2024-03-03 10:19 | MHC.PC.OV ---
Vital Signs 03/03/24 10:25 Height 5 ft 3 in Weight 186 lb BMI 32.9 BP 129/79 Blood Pressure Location Rt brachial Position Sitting Respiration 16 Pulse 79 Pulse Source Pulse Oximeter Temp 98.4 F Temp Source Temporal Artery Scan Pulse Oximetry (%) 98 Oxygen Delivery Method Room Air Intake Visit Reasons: 9 wk CPE Intake Note: patient here for CPE Salt Grinder Required: No Allergies No Known Allergies Allergy (Verified 03/03/24 10:46) Medication List - Last Reconciled 03/03/24 by Kimberly Alfaro CNP albuterol sulfate 2.5 mg (3 mL) inhalation Q4-6H PRN 30 days aripiprazole (Abilify) 2 mg PO DAILY 30 days atorvastatin 40 mg PO BEDTIME cyclobenzaprine 10 mg PO TID 30 days fenofibrate 120 mg PO DAILY 30 days fluoxetine 40 mg PO DAILY hydrocortisone 2.5% (Anusol-HC) 1 appl [place] BID-QID PRN lidocaine 5% (Hemorrhoidal Relief) 1 appl topical TID PRN melatonin 10 mg PO BEDTIME menthol-zinc oxide 0.44-20.6 % (Calmoseptine) 1 appl topical QID PRN Tobacco use date assessed: 03/03/24 Dental Screening Dental Screen Date: 03/03/24 Did you have a dental visit in the last 12 months?: No Did you have a dental problem in the last 6 months where you did not have access to dental care?: No Was dental information given to patient?: Patient declined HPI HPI Comments History of Present Illness Details The patient is a 49-year-old male presenting for an extended physical exam and laboratory review. He has a history of hyperlipidemia, obesity, anal fissure, anxiety, and depression. His past medical intervention included colonoscopy scheduled for 01/11/2024 and a Tdap vaccination on 09/02/2022. He takes Abilify 2 mg, Atorvastatin 40 mg at bedtime, cyclobenzaprine as needed for muscle spasms, fenofibrate 120 mg daily, fluoxetine 40 mg daily, hydrocodone cream for pain on an as-needed basis, melatonin 10 mg at bedtime, and methyl zinc oxide cream for hemorrhoids as needed. He has seen a director of knowledge management twice in [place] and is making healthier dietary choices. He quit smoking approximately 12-13 years ago after smoking a pack to a pack and a half daily for nearly 24 years. Anxiety and depression are well-controlled, with a PHQ-9 score indicating mild depression and a JOSE-7 score indicating normal anxiety levels. He denies recent exercise. Fasting glucose levels showed elevation at 111, and his triglycerides are elevated at 177, an increase from 103 in September. The laboratory findings also indicated slightly low RBC, hemoglobin, and hematocrit levels, with MCV being normal, suggesting potential anemia of chronic disease. Social History - Denies current smoking, alcohol use, and drug use. - Former smoker: Quit 12-13 years ago, previously smoked for nearly 24 years. - Sees a director of knowledge management and is making healthier food choices. - Denies recent exercise, acknowledges the need to increase physical activity. - Reports longstanding use of glasses for distance and reading. - Impaired hearing in both ears, uses hearing aids. - Anxiety and fear of dental visits, no current dentist, long interval since last dental care. - Sleep patterns generally okay, takes melatonin. Health Maintenance - Colonoscopy scheduled for 01/11/2024. - Tdap vaccination documented on 09/02/2022. - Eye exam completed in October 2022. - Last tetanus shot is up to date. - Planned flu vaccination today. - Laboratory review completed; additional tests pending. - Advised diet low in saturated and trans fats. - Encouraged regular exercise. - Encouraged regular dental checkups despite anxiety. Results - Labs: Hemoglobin and hematocrit slightly low; MCV normal. Fasting glucose elevated at 111. Triglycerides elevated at 177, up from 103 in September. Total cholesterol normal at 160, LDL normal at 87, HDL slightly low at 38. Electrolytes and thyroid levels are normal. - Urinalysis: Normal; no indication of urinary tract infection. - Kidney function: Normal. - Liver function: Normal - Planned tests: CBC, iron studies, fasting glucose, vitamin B12, folate, lipid panel, PSA. [facility] Medical History Pruritus ani Elevated cholesterol COPD (chronic obstructive pulmonary disease) Anxiety and depression ED (erectile dysfunction) Surgical History Hx of surgical procedure (~04/12/23) H/O umbilical hernia repair Hx of colonoscopy Family History Mother Cancer Breast cancer Father No problems noted. 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 1. Little interest or pleasure in doing things: several days 2. Feeling down, depressed, or hopeless: not at all 3. Trouble falling or staying asleep, or sleeping too much: several days 4. Feeling tired or having little energy: nearly every day 5. Poor appetite or overeating: several days 6. Feeling bad about yourself - or that you are a failure or have let yourself or your family down: not at all 7. Trouble concentrating on things, such as reading the newspaper or watching television: not at all 8. Moving or speaking so slowly that other people could have noticed. Or the opposite - being so fidgety or restless that you have been moving around a lot more than usual: not at all 9. Thoughts that you would be better off or of hurting yourself in some way: not at all Total score: 6 Depression Screening Interpretation: Negative Depression Screening Done: Yes 90701 - PHQ-9 Billing: Yes Source: Developed by Drs. Andrea Stewart, Alana Cuello, Kenneth Lane and colleagues, with an educational parvez from [employer]. Thrive Questionnaire Date Thrive assessed: 03/03/24 I am a: Patient What is your living situation today?: I have a steady place to live Within the past 12 months, did the food you bought not last and you didn't have the money to get more?: Never true Within the past 12 months, did you worry whether your food would run out before you got money to buy more?: Never true Do you have trouble paying for medicines?: Yes Do you have trouble getting transportation to medical appointments?: No Do you have trouble paying your heating and electricity bill?: I choose not to answer this question Do you have trouble taking care of your child, family member or friend?: No Do you have trouble with day-to-day activities such as bathing, preparing meals, shopping, managing finances, etc.?: No Are you currently unemployed and looking for a job?: No Are you interested in more education?: No Please select the resources that you would like help with: None Currently or been in a relationship where the following occur: No concerns reported THRIVE Score: 0 AUDIT C Alcohol Use Questionnaire (AUDIT-C) 1. How often do you have a drink containing alcohol?: Never 3. How often do you have six or more drinks on one occasion?: Never Total Score: 0 Score Reviewed/Action Taken: Yes JOSE-7 AMB Questionnaire JOSE-7 Date JOSE - 7 assessed: 03/03/24 Feeling nervous, anxious, or on edge: 0 = Not at all Not being able to stop or control worryin = Not at all Worrying too much about different things: 1 = Several days Trouble relaxin = Several days Being so restless that it is hard to sit still: 0 = Not at all Becoming easily annoyed or irritable: 1 = Several days Feeling afraid as if something awful might happen: 0 = Not at all Total JOSE-7 score (0-4 normal; 5-9 mild; 10-14 moderate; 15-21 severe): 3 Source: Developed by Drs. Andrea Stewart, Alana Cuello, Kenneth Lane and colleagues, with an educational parvez from [employer]. Review of Systems Const Details: Denies chills, Denies fatigue, Denies fever(s), Denies headache(s) and Denies weakness HEENT Denies change in vision, Denies dizziness, Denies headache(s), Denies hearing loss, Denies nasal congestion, Denies sinus pain, Denies sinus pressure and Denies sore throat Card Denies chest pain, Denies lightheadedness, Denies dyspnea and Denies other (palpitations) Resp Denies cough, Denies dyspnea and Denies wheezing GI Denies abdominal pain, Denies melena, Denies hematochezia, Denies change in bowel habits, Denies dyspepsia and Denies nausea Denies hematuria and Denies dysuria Musc Denies abnormal gait, Denies myalgias, Denies arthralgias, Denies numbness and Denies tingling Skin/Breast Denies rash, Denies unusual bruising and Denies wounds Neuro Denies abnormal gait, Denies dizziness, Denies headache(s), Denies memory loss, Denies numbness, Denies Sensory deficit (Neuro), Denies tingling and Denies weakness Psych Denies anxiety, Denies depression and Denies memory loss Endo Denies cold intolerance, Denies fatigue, Denies heat intolerance, Denies polydipsia and Denies polyuria Adarsh/Lymph Denies easy bleeding and Denies easy bruising Aller/Immun Denies wheezing Physical exam (Primary Care) Vital Signs: Last Vital Signs Temp 98.4 F 03/03/24 10:25 Pulse 79 03/03/24 10:25 Resp 16 03/03/24 10:25 BP 129/79 03/03/24 10:25 Pulse Ox 98 03/03/24 10:25 Oxygen Delivery Method Room Air 03/03/24 10:25 BMI result Body Mass Index 32.9 Tobacco/Smoking Status: Tobacco use Status Tobacco use date assessed 03/03/24 03/03/24 10:25 Patient Tobacco Use Status Former Tobacco user 03/03/24 10:21 e-Cigarette/Vaping Use Never Used 03/03/24 10:21 PHQ-9: PHQ-9 Score PHQ-9: Total score 6 03/03/24 10:25 Depression Screening Interpretation: Negative Thrive Assessment: Date of Thrive Assessment Date Thrive assessed 03/03/24 03/03/24 10:21 Currently or been in a relationship where the following occur: No concerns reported Const Other: General: no acute distress, well developed, alert and awake Nutritional Appearance: well nourished Orientation/consciousness: patient oriented x3 HENMT Head: Yes normocephalic and Yes atraumatic Ears: hearing grossly normal bilaterally and TM's normal bilaterally General nose exam: Normal external nose present and Normal nares present Mouth: Normal oral and palatal mucosa present and moist mucous membranes Teeth and gingiva: dentition normal Throat: Yes oropharynx normal Eyes Pupils: Equal, round and reactive pupils present and Pupil accommodation reflex normal EOM: EOMs intact bilaterally Neck Neck: Yes normal visual inspection, Yes no lymphadenopathy and Yes trachea midline Thyroid: Thyroid normal Carotids: no bruits Lymphatic: no lymphadenopathy noted Chest Chest palpation & inspection: normal inspection of the chest Resp Effort & Inspection: normal respiratory effort Auscultation: clear to auscultation bilaterally Cardio Rate: regular rate Rhythm: regular rhythm Heart sounds: S1 normal heart sound present, S2 normal heart sound present, no gallops, no murmurs and no rubs Bruits: no abdominal aortic bruits and no carotid bruits GI Palpation (GI): No Abdominal aortic bruit present, Soft to palpation, nontender, No hepatosplenomegaly present and No Rebound tenderness present Auscultation: normal bowel sounds General: Yes no CVA tenderness Back/Spine/Pelvis Back: no CVA tenderness Cervical Spine: cervical ROM normal and No Cervical spine tenderness Thoracic/Lumbar Spine: thoraco-lumbar ROM normal, No pain with thoraco-lumbar ROM, No thoracic spinal tenderness and No lumbar spinal tenderness Skin General: warm and dry. Normal skin color. Normal skin turgor Lesions: no lesions Rashes: no rashes Trauma: no lacerations or abrasions Wounds: no wounds Nails: normal Neuro General: patient oriented x3, gait normal and CN's II-XI intact bilaterally Cranial nerves: Yes Equal, round and reactive pupils present Cognition (Neuro): normal cognition Gait exam (Neuro): Normal gait present Motor exam (neuro): 5/5 motor strength present throughout Sensory Exam: No Sensory deficit (Neuro) Deep tendon reflexes (DTR's): Right patellar reflex intensity grade: 2+ and Left patellar reflex intensity grade: 2+ Extrem General: Yes normal to inspection, No edema and No calf tenderness Psych Appearance: grossly normal Affect: normal affect Attitude: cooperative Thought process: Normal thought process present Coding Level of Care Code Est Pt Prev Care 40-64y(73531) Diagnoses Normal physical exam Z00.00 Mild anemia D64.9 Elevated fasting glucose R73.01 High cholesterol E78.00 Anxiety and depression F41.9; F32.9 Healthcare maintenance Z00.00 Obesity (BMI 30.0-34.9) E66.9 Additional Codes PHQ-9 - 02203 - PHQ-9 Billing: Yes ([id number]) Assessment & Plan Assessment & Plan (1) Normal physical exam: Code(s): Z00.00 - Encounter for general adult medical examination without abnormal findings Category: Medical Plan: No significant functional limitation noted. (2) Mild anemia: Code(s): D64.9 - Anemia, unspecified Category: Medical Plan: Order further tests to rule out iron deficiency, vitamin deficiency; suspect chronic disease anemia. (3) Elevated fasting glucose: Code(s): R73.01 - Impaired fasting glucose Category: Medical (4) High cholesterol: Code(s): E78.00 - Pure hypercholesterolemia, unspecified Category: Medical Plan: Adjust fenofibrate to 160 mg to target triglycerides, continue atorvastatin 40 mg daily. (5) Anxiety and depression: Code(s): F41.9 - Anxiety disorder, unspecified; F32.9 - Major depressive disorder, single episode, unspecified Category: Medical Plan: Continue current medication regimen; monitor mental health status. (6) Healthcare maintenance: Code(s): Z00.00 - Encounter for general adult medical examination without abnormal findings Category: Medical Plan: Administer flu vaccination; remind for fasting labs before the next visit in three months. Repeat fasting glucose test. (7) Obesity (BMI 30.0-34.9): Code(s): E66.9 - Obesity, unspecified Category: Medical Plan: Healthy diet and routine exercise encouraged. Continue to follow up with dietitian. Plan During the consultation, we addressed the patient's current medical conditions, particularly focusing on hyperlipidemia, anxiety, and depressive disorders. We discussed the elevated triglyceride levels and the plan to increase the fenofibrate dosage. The significance of regular exercise and maintaining a healthy diet to manage weight, mental health, and lipid levels was emphasized. We reviewed the benefits of obtaining regular screenings, including PSA levels for prostate health. The patient was advised on the necessity of managing mild depression with existing prescribed medications and the need for follow-up lab tests. Additional discussions included the patient's fear of dental visits, recommending annual checkups, and emphasizing lifestyle modifications for overall health improvement. Follow-up is scheduled in three months, with a plan to revisit medications, mental health, and lab results. Orders: Orders PSA, Ultra Sensitive Today Z00.00 - Encounter for general adult medical examination without abnormal findings Complete Blood Count no Diff Today D64.9 - Anemia, unspecified IRON PROFILE Today R73.01 - Impaired fasting glucose Glucose Fasting Today R73.01 - Impaired fasting glucose Ferritin Today D64.9 - Anemia, unspecified Vitamin B12 and Folate Today D64.9 - Anemia, unspecified Lipid Panel Today E78.00 - Pure hypercholesterolemia, unspecified Medications: New fenofibrate 160 mg PO DAILY 30 days 30 tabs 3RF Discontinued fenofibrate Discontinued Reason: Doctor's Order 120 mg PO DAILY 30 days 30 tabs 3RF Patient Instructions: - Increase fenofibrate dosage to 160 mg daily as prescribed. - Continue current medications for anxiety and depression. - Fast for 10-12 hours before repeat glucose test and upcoming lab work. - Maintain a diet low in saturated and trans fats. - Begin a regular exercise routine. - Receive flu vaccination as planned. - Schedule a follow-up visit in three months. - Pursue routine dental care when able to overcome anxiety barriers. - Promptly report any changes in health status or medication side effects. Patient was informed and verbally consented to the use of an ambient scribe for clinic note documentation during this visit.
[2024-03-03 10:25] VITALS: BP 129/79; PULSE 79; RESP 16; TEMP 36.9; O2SAT 98; BMI 32.9
== END 2024-03-03 11:04 | disposition home or self-care (01) ==
PROVIDERS: PCP Nurse Practitioner Family; Visit Provider Nurse Practitioner Family
DX: Z00.00 Encounter for general adult medical examination without abnormal findings (principal); D64.9 Anemia, unspecified; E66.9 Obesity, unspecified; Z68.32 Body mass index [BMI] 32.0-32.9, adult; R73.01 Impaired fasting glucose; E78.00 Pure hypercholesterolemia, unspecified; F41.9 Anxiety disorder, unspecified; F32.9 Major depressive disorder, single episode, unspecified

== ENCOUNTER → 2024-03-03 10:15 | Outpatient (BNVA) | payer BC, SELFPAY | PROVIDERS: PCP Nurse Practitioner Family; Visit Provider Nurse Practitioner Family | DX: Z00.00 Encounter for general adult medical examination without abnormal findings (principal); D64.9 Anemia, unspecified; R73.01 Impaired fasting glucose; E78.00 Pure hypercholesterolemia, unspecified; F41.9 Anxiety disorder, unspecified; F32.9 Major depressive disorder, single episode, unspecified; E66.9 Obesity, unspecified; Z68.32 Body mass index [BMI] 32.0-32.9, adult; Z79.899 Other long term (current) drug therapy | CPT/HCPCS: 96127 ==

== ENCOUNTER 2024-04-15 12:06 | Outpatient (AMB) | payer BC, SELFPAY ==
[2024-04-15 12:36] VITALS: BMI 32.3
--- NOTE | 2024-04-15 12:36 | A.OFFVIS_ITS ---
VS Expanded 04/15/24 12:36 Height 5 ft 3 in Weight 182 lb 1.629 oz BMI 32.3 Intake Visit Reasons: obesity Allergies No Known Allergies Allergy (Verified 03/03/24 10:46) Nutrition Presentation Details: Pt presents for MNT f/u for obesity Pt reports working on including fruits and working on reducting BS Monitoring Most Recent Diabetes Results: Microalb/Creat Ratio 3.9 ug/mg cr (<30) 03/02/24 Cholesterol 160 mg/dL (<200) 03/02/24 HDL Cholesterol 38 mg/dL (>40) L 03/02/24 Triglycerides 177 mg/dL (<150) H 03/02/24 Creatinine 0.87 mg/dL (0.5-1.4) 03/02/24 Blood Urea Nitrogen 11 mg/dL (9-16) 03/02/24 Sodium 139 mmol/L (135-145) 03/02/24 Potassium 3.5 mmol/L (3.3-5.1) 03/02/24 Chloride 107 mmol/L (96-108) 03/02/24 Carbon Dioxide 23 mmol/L (22-29) 03/02/24 Calcium 8.9 mg/dL (8.4-10.2) 03/02/24 AST 28 U/L (5-37) 03/02/24 ALT 29 U/L (0-40) 03/02/24 Total Protein 7.1 g/dL (6.5-8.0) 03/02/24 Albumin 4.0 g/dL (3.5-5.0) 03/02/24 PFSH Medical History Pruritus ani Elevated cholesterol COPD (chronic obstructive pulmonary disease) Anxiety and depression ED (erectile dysfunction) Surgical History Hx of surgical procedure (~04/12/23) H/O umbilical hernia repair Hx of colonoscopy Family History Mother Cancer Breast cancer Father No problems noted. 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 Current occupational exposures/hazards: No Cognitive needs: No Hearing needs: Yes Vision needs: No Assessment & Plan Assessment & Plan (1) Obesity (BMI 30.0-34.9): Code(s): E66.9 - Obesity, unspecified Category: Medical Plan: Wt: 85 Kg ( 12/30 ), 03/01, 83 kg(05/02) Est kcal needs as per MSJ: 2200 (40% carb, 30% protein/fat) Est fluid needs as per 25-30 ml/d: 2600 Est prot per day as per 1 g/kg bw: 85 Recommend fiber intake : 8-10 g per day and gradually increase to 25-28 g per day for women and 35-38 g for men or as tolerated Recommend sodium intake per day : less than 2000 mg Educated patient on: ( R = reviewed V = verbalizes understanding N/R = needs review N/A = not applicable * Food sources of carbohydrate, adequate serving sizes and its role in various health conditions: R ,v * Differences between complex carbohydrates a simple carbohydrates, role of fiber in diet: R * Lean protein sources of foods: R * Differences between types of fats and role in diet (mono on saturated fat fatty acids, saturated fatty acids, trans fats): R basic * Food sources of sodium in salt and healthy modifications for heart health in kidney health: R V R/V * Vitamins and minerals: R V N/R * Healthy plate method concept: R * Physical activity: Benefits a precaution: R V N/R Plan Goal wt 155 lbs Patient Instructions: Include fiber rich foods (roman salad, lentils soup as example ) have as a meal 3 times a week Continue working on reducing on portion size of fried foods Coding Level of Care Code Nutr Indiv Subseq (73608) Diagnoses Obesity (BMI 30.0-34.9) E66.9 Time Spent (min) 20
== END 2024-04-15 12:52 | disposition home or self-care (01) ==
PROVIDERS: PCP Nurse Practitioner Family; Visit Provider Dietitian, Registered
DX: E66.9 Obesity, unspecified (principal)

== ENCOUNTER → 2024-04-15 12:06 | Outpatient (BNVA) | payer BC, SELFPAY | PROVIDERS: PCP Nurse Practitioner Family; Visit Provider Dietitian, Registered | DX: E66.9 Obesity, unspecified (principal); Z68.32 Body mass index [BMI] 32.0-32.9, adult; Z71.3 Dietary counseling and surveillance | CPT/HCPCS: 97803 ==

== ENCOUNTER 2024-04-30 14:50 | Outpatient (AMB) | payer BC, SELFPAY ==
--- NOTE | 2024-04-30 15:10 | A.OFFVIS_ITS ---
Vital Signs 04/30/24 15:21 Height 5 ft 3 in Weight 184 lb BMI 32.6 BP 122/76 Blood Pressure Location Rt brachial Position Sitting Pulse 75 Intake Visit Reasons: Pruritus ani Intake Note: This patient presents for possible recurrent anal fissure. Pt c/o; reports itchiness, rectal creams he was prescribed have not been effective, rectal bleeding after bowel movements, pain when sitting. Type Mapper Required: No Accompanied by: Self / Same As Patient Allergies No Known Allergies Allergy (Verified 04/30/24 15:23) Medication List - Last Reconciled 04/30/24 by Elder Barr MD albuterol sulfate 2.5 mg (3 mL) inhalation Q4-6H PRN 30 days aripiprazole (Abilify) 2 mg PO DAILY 30 days atorvastatin 40 mg PO BEDTIME cyclobenzaprine 10 mg PO TID 30 days fenofibrate 160 mg PO DAILY 30 days fluoxetine 40 mg PO DAILY hydrocortisone 2.5% (Anusol-HC) 1 appl AR BID-QID PRN lidocaine 5% (Hemorrhoidal Relief) 1 appl topical TID PRN melatonin 10 mg PO BEDTIME menthol-zinc oxide 0.44-20.6 % (Calmoseptine) 1 appl topical QID PRN HPI HPI Pruritus ani: Details: He is known to me for pruritus ani. I had done biopsies of the perianal skin before and this was unremarkable. I have not seen him in a year. He said he has been doing well but about 2-3 weeks ago he had been noticing using again around his anus. He denies any bleeding. He denies any palpable mass. He denies any diarrhea or constipation. [facility] Medical History Pruritus ani Elevated cholesterol COPD (chronic obstructive pulmonary disease) Anxiety and depression ED (erectile dysfunction) Surgical History Hx of surgical procedure (~04/12/23) H/O umbilical hernia repair Hx of colonoscopy Family History Mother Cancer Breast cancer Father No problems noted. 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 Current occupational exposures/hazards: No Cognitive needs: No Hearing needs: Yes Vision needs: No Review of Systems Const Denies chills and Denies fever(s) Card Denies chest pain, Denies dyspnea and Denies dyspnea on exertion Resp Denies cough, Denies dyspnea and Denies dyspnea on exertion GI Denies hematochezia and Denies change in bowel habits Denies hematuria and Denies difficulty urinating Musc Denies back pain and Denies limited range of motion Neuro Denies focal weakness and Denies convulsions Psych Denies depression and Denies mood swings Physical Exam Vital Signs: Last Vital Signs Pulse 75 04/30/24 15:21 BP 122/76 04/30/24 15:21 BMI result Body Mass Index 32.6 Const General: comfortable and no acute distress Resp Effort & Inspection: normal respiratory effort Cardio Rate: regular rate GI Other: Rectal exam does not reveal any lesions in the perianal area. There were no obvious large hemorrhoids. There was no fissure. There was no bleeding. There was no induration. Assessment & Plan Assessment & Plan (1) Pruritus ani: Code(s): L29.0 - Pruritus ani Category: Medical Plan: He has had this problem for years. He says that he had if not improving for a year but she had been having some itching again for the past 2 weeks or so I will represcribe him Calmoseptine. I advised him on the benefits of avoiding caffeine or sugary drinks. I will see him again in the office if he does not notice any improvement. Coding Level of Care Code Est Pt Level 3 (38335) Diagnoses Pruritus ani L29.0
[2024-04-30 15:21] VITALS: BP 122/76; PULSE 75; BMI 32.6
== END 2024-04-30 15:48 | disposition home or self-care (01) ==
PROVIDERS: PCP Nurse Practitioner Family; Visit Provider Surgery
DX: L29.0 Pruritus ani (principal)
CPT/HCPCS: 99213

== ENCOUNTER 2024-06-11 08:24 | Outpatient (REF) | payer BC, SELFPAY ==
[2024-06-11 12:04] LABS: Hemoglobin 13.6 g/dl (14.0-18.0); Mean Corpuscular HGB Conc 33.2 g/dl (31.0-36.0); Mean Corpuscular Hemoglobin 30.3 pg (27.0-33.0); Mean Corpuscular Volume 91.3 fL (80.0-98.0); Mean Platelet Volume 8.9 fL (9.4-12.4); Platelet Count 325 X10*3/uL (160-400); Red Blood Count 4.49 X10*6/uL (4.60-5.80); White Blood Count 5.9 X10*3/uL (4.8-10.8)
[2024-06-11 12:27] LABS: Cholesterol 182 mg/dL (<200); Glucose Fasting 97 mg/dL (60-99); HDL Cholesterol 37 mg/dL (>40); Iron 52 mcg/dL (45-160); LDL Cholesterol Calculated 93 mg/dL (<100); Percent Iron Saturation 16 % (15-50); Total Iron Binding Capacity 316 mcg/dL (228-428); Triglycerides 264 mg/dL (<150); Unsaturated Iron Binding 264 ug/dL
[2024-06-11 12:41] LABS: Ferritin 52 ng/mL (20-250)
[2024-06-11 13:13] LABS: Vitamin B12 557 pg/mL (200-900)
[2024-06-17 21:38] LABS: PSA, Ultra Sensitive 0.84 ng/mL
== END 2024-06-11 08:25 | disposition home or self-care (01) ==
LOC: HO.WFDLDS 08:24
PROVIDERS: Visit Provider Nurse Practitioner Family
DX: Z12.5 Encounter for screening for malignant neoplasm of prostate (principal); F41.9 Anxiety disorder, unspecified; D64.9 Anemia, unspecified; R73.01 Impaired fasting glucose; E78.00 Pure hypercholesterolemia, unspecified; F32.9 Major depressive disorder, single episode, unspecified; Z00.00 Encounter for general adult medical examination without abnormal findings
CPT/HCPCS: 36415; 80061; 82607; 82728; 82746; 82947; 83540; 84153; 85027; 96127

== ENCOUNTER 2024-06-11 11:03 | Outpatient (AMB) | payer BC, SELFPAY ==
--- NOTE | 2024-06-11 11:05 | A.OFFPC_ITS ---
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 Allergies No Known Allergies Allergy (Verified 06/11/24 11:40) Medication List - Last Reconciled 06/11/24 by Kimberly Alfaro CNP albuterol sulfate 2.5 mg (3 mL) inhalation Q4-6H PRN 30 days aripiprazole (Abilify) 2 mg PO DAILY 30 days atorvastatin 40 mg PO BEDTIME cyclobenzaprine 10 mg PO TID 30 days fenofibrate 160 mg PO DAILY 30 days fluoxetine 40 mg PO DAILY hydrocortisone 2.5% (Anusol-HC) 1 appl [place] BID-QID PRN lidocaine 5% (Hemorrhoidal Relief) 1 appl topical TID PRN melatonin 10 mg PO BEDTIME menthol-zinc oxide 0.44-20.6 % (Calmoseptine) 1 appl topical QID PRN Tobacco use date assessed: 06/11/24 Dental Screening Dental Screen Date: 06/11/24 Did you have a dental visit in the last 12 months?: No Did you have a dental problem in the last 6 months where you did not have access to dental care?: No Was dental information given to patient?: Patient declined HPI HPI Comments History of Present Illness Details 49-year-old male presents for hyperlipid emia, anxiety, depression, and recent labs review follow-up. He admits to taking his medications as prescribed without adverse reactions. Reports controlled anxiety and depressive symptoms. He notes that he generally makes healthy dietary choices. He walks frequently. He offers no complaints and denies acute symptoms at this time. He had blood work done earlier this morning and has not resulted. [facility] Medical History Pruritus ani Elevated cholesterol COPD (chronic obstructive pulmonary disease) Anxiety and depression ED (erectile dysfunction) Surgical History Hx of surgical procedure (~04/12/23) H/O umbilical hernia repair Hx of colonoscopy Family History Mother Cancer Breast cancer Father No problems noted. 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 1. Little interest or pleasure in doing things: not at all 2. Feeling down, depressed, or hopeless: not at all 3. Trouble falling or staying asleep, or sleeping too much: not at all 4. Feeling tired or having little energy: several days 5. Poor appetite or overeating: several days 6. Feeling bad about yourself - or that you are a failure or have let yourself or your family down: not at all 7. Trouble concentrating on things, such as reading the newspaper or watching television: not at all 8. Moving or speaking so slowly that other people could have noticed. Or the opposite - being so fidgety or restless that you have been moving around a lot more than usual: not at all 9. Thoughts that you would be better off or of hurting yourself in some way: not at all Total score: 2 Depression Screening Interpretation: Negative Depression Screening Done: Yes 27132 - PHQ-9 Billing: Yes Source: Developed by Drs. Andrea Stewart, Alana Cuello, Kenneth Lane and colleagues, with an educational parvez from [employer]. Thrive Questionnaire Date Thrive assessed: 06/11/24 I am a: Patient What is your living situation today?: I have a steady place to live Within the past 12 months, did the food you bought not last and you didn't have the money to get more?: Never true Within the past 12 months, did you worry whether your food would run out before you got money to buy more?: Never true Do you have trouble paying for medicines?: No Do you have trouble getting transportation to medical appointments?: No Do you have trouble paying your heating and electricity bill?: I choose not to answer this question Do you have trouble taking care of your child, family member or friend?: No Do you have trouble with day-to-day activities such as bathing, preparing meals, shopping, managing finances, etc.?: No Are you currently unemployed and looking for a job?: No Are you interested in more education?: No Please select the resources that you would like help with: Utilities Currently or been in a relationship where the following occur: No concerns reported THRIVE Score: 0 AUDIT C Alcohol Use Questionnaire (AUDIT-C) 1. How often do you have a drink containing alcohol?: Never 3. How often do you have six or more drinks on one occasion?: Never Total Score: 0 JOSE-7 AMB Questionnaire JOSE-7 Date JOSE - 7 assessed: 06/11/24 Feeling nervous, anxious, or on edge: 0 = Not at all Not being able to stop or control worryin = Not at all Worrying too much about different things: 0 = Not at all Trouble relaxin = Several days Being so restless that it is hard to sit still: 0 = Not at all Becoming easily annoyed or irritable: 1 = Several days Feeling afraid as if something awful might happen: 0 = Not at all Total JOSE-7 score (0-4 normal; 5-9 mild; 10-14 moderate; 15-21 severe): 2 Source: Developed by Drs. Andrea Stewart, Alana Cuello, Kenneth Lane and colleagues, with an educational parvez from [employer]. JOSE-7 Assessment Billing JOSE-7 Assessment Tool: JOSE-7 Assessment 78580 Review of Systems Const Details: Const Denies chills, Denies fatigue, Denies fever(s), Denies headache(s) and Denies weakness ENT Denies dizziness and Denies headache(s) Card Denies chest pain, Denies lightheadedness, Denies dyspnea and Denies other (Palpitations) Resp Denies cough, Denies dyspnea, Denies wheezing and Denies other ( shortness of breath) GI Denies abdominal pain, Denies melena, Denies hematochezia, Denies change in bowel habits, Denies dyspepsia and Denies nausea Denies hematuria and Denies dysuria Musc Denies abnormal gait, Denies myalgias, Denies arthralgias, Denies numbness and Denies tingling Skin/Breast Denies rash, Denies unusual bruising and Denies wounds Neuro Denies abnormal gait, Denies dizziness, Denies headache(s), Denies memory loss, Denies numbness, Denies Sensory deficit (Neuro), Denies tingling and Denies weakness Psych Denies anxiety, Denies depression, Denies memory loss Endo Denies cold intolerance, Denies fatigue, Denies heat intolerance, Denies polydipsia and Denies polyuria Aller/Immun Denies wheezing Physical exam (Primary Care) Vital Signs: Last Vital Signs Temp 97.8 F 06/11/24 11:14 Pulse 77 06/11/24 11:14 Resp 16 06/11/24 11:14 BP 133/78 06/11/24 11:14 Pulse Ox 97 06/11/24 11:14 Oxygen Delivery Method Room Air 06/11/24 11:14 BMI result Body Mass Index 32.1 Tobacco/Smoking Status: Tobacco use Status Tobacco use date assessed 06/11/24 06/11/24 11:17 Patient Tobacco Use Status Former Tobacco user 06/11/24 11:05 e-Cigarette/Vaping Use Never Used 06/11/24 11:05 PHQ-9: PHQ-9 Score PHQ-9: Total score 2 06/11/24 11:17 Depression Screening Interpretation: Negative Thrive Assessment: Date of Thrive Assessment Date Thrive assessed 06/11/24 06/11/24 11:08 Currently or been in a relationship where the following occur: No concerns reported Const Other: General: no acute distress and well developed Nutritional Appearance: well nourished Orientation/consciousness: patient oriented x3 HENMT Head: Yes normocephalic and Yes atraumatic Eyes General: appearance normal, both eyes and all related structures Pupils: Equal, round and reactive pupils present EOM: EOMs intact bilaterally Resp Effort & Inspection: normal respiratory effort Auscultation: clear to auscultation bilaterally Cardio Rate: regular rate Rhythm: regular rhythm Heart sounds: S1 normal heart sound present, S2 normal heart sound present, no gallops, no murmurs and no rubs GI Palpation (GI): No Abdominal aortic bruit present, Soft to palpation, nontender, No hepatosplenomegaly present and No Rebound tenderness present Auscultation: normal bowel sounds General: Yes no CVA tenderness Back/Spine/Pelvis Back: no CVA tenderness Cervical Spine: cervical ROM normal and No Cervical spine tenderness Thoracic/Lumbar Spine: thoraco-lumbar ROM normal, No pain with thoraco-lumbar ROM, No thoracic spinal tenderness and No lumbar spinal tenderness Extrem General: Yes normal to inspection, No edema and No calf tenderness Skin General: warm and dry. Normal skin color. Normal skin turgor Neuro General: patient oriented x3, gait normal and no focal neuro deficit Cranial nerves: Yes Equal, round and reactive pupils present Cognition (Neuro): normal cognition Gait exam (Neuro): Normal gait present Sensory Exam: No Sensory deficit (Neuro) Psych Appearance: grossly normal Affect: normal affect Attitude: cooperative Thought process: Normal thought process present Coding Level of Care Code Est Pt Level 3 (27139) Diagnoses Anxiety and depression F41.9; F32.9 High cholesterol E78.00 Additional Codes JOSE-7 Assessment Billing - JOSE-7 Assessment Tool: JOSE-7 Assessment 76421 ([id number]) PHQ-9 - 70489 - PHQ-9 Billing: Yes ([id number]) Assessment & Plan Assessment & Plan (1) Anxiety and depression: Code(s): F41.9 - Anxiety disorder, unspecified; F32.9 - Major depressive disorder, single episode, unspecified Category: Medical Plan: Controlled anxiety and depressive symptoms. Continue to take fluoxetine and Abilify as prescribed. Routine exercise encouraged. Follow-up in 3 months or sooner with worsening or new symptoms. Verbalized understanding and agreed with treatment plan. (2) High cholesterol: Code(s): E78.00 - Pure hypercholesterolemia, unspecified Category: Medical Plan: He had blood work done this morning that has not resulted. Continue to take atorvastatin 40 mg daily. Advised to limit foods high in saturated fat and avoid foods high in trans fat. Routine exercise encouraged. Will review lipid panel level was resulted and make changes as needed. Verbalized understanding and agreed with the treatment plan. Medications: Changed From aripiprazole (Abilify) 2 mg PO DAILY 30 days 30 tabs 3RF To aripiprazole (Abilify) 2 mg PO DAILY 90 days 90 tabs 1RF
[2024-06-11 11:14] VITALS: BP 133/78; PULSE 77; RESP 16; TEMP 36.6; O2SAT 97; BMI 32.1
== END 2024-06-11 11:48 | disposition home or self-care (01) ==
PROVIDERS: PCP Nurse Practitioner Family; Visit Provider Nurse Practitioner Family
DX: F41.9 Anxiety disorder, unspecified (principal); F32.9 Major depressive disorder, single episode, unspecified; E78.00 Pure hypercholesterolemia, unspecified

== ENCOUNTER 2024-06-25 08:31 | Outpatient (AMB) | payer BC, SELFPAY ==
--- NOTE | 2024-06-25 08:32 | A.OFFVIS_ITS ---
Vital Signs 06/25/24 08:40 Height 5 ft 3 in Weight 183 lb 2 oz BMI 32.4 BP 131/81 Blood Pressure Location Rt brachial Position Sitting Pulse 78 Intake Visit Reasons: Fissures Intake Note: This patient presents for possible recurrent anal fissure. Pt c/o; history of EUA Bx of perianal skin 04/12/2023, reports rectal bleeding when wipes. 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 Accompanied by: Self / Same As Patient Allergies No Known Allergies Allergy (Verified 06/25/24 08:41) Medication List - Last Reconciled 06/25/24 by Elder Barr MD albuterol sulfate 2.5 mg (3 mL) inhalation Q4-6H PRN 30 days aripiprazole (Abilify) 2 mg PO DAILY 90 days atorvastatin 40 mg PO BEDTIME clobetasol 0.05% 1 appl topical DAILY cyclobenzaprine 10 mg PO TID 30 days fenofibrate 160 mg PO DAILY 30 days fluoxetine 40 mg PO DAILY hydrocortisone 2.5% (Anusol-HC) 1 appl [place] BID-QID PRN lidocaine 5% (Hemorrhoidal Relief) 1 appl topical TID PRN melatonin 10 mg PO BEDTIME menthol-zinc oxide 0.44-20.6 % (Calmoseptine) 1 appl topical QID PRN omega 9-myr-orj-fish oil 1,000 (120-180) mg (Fish Oil) 1 cap PO TID 30 days HPI HPI Fissures: Details: He is here for follow-up for his pruritus ani. He had a biopsy last year showing can simplex chronicus. He says he again has had episodes of significant itching. He therefore wants this rechecked. Had been using Calmoseptine before but he says that this does not seem to provide relief at this time. He denies any bleeding. [facility] Medical History (Updated 06/25/24 @ 08:54 by Elder Barr MD) Lichen simplex chronicus Pruritus ani Elevated cholesterol COPD (chronic obstructive pulmonary disease) Anxiety and depression ED (erectile dysfunction) Surgical History Hx of surgical procedure (~04/12/23) H/O umbilical hernia repair Hx of colonoscopy Family History Mother Cancer Breast cancer Father No problems noted. 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 Current occupational exposures/hazards: No Cognitive needs: No Hearing needs: Yes Vision needs: No Review of Systems Const Denies chills and Denies fever(s) Card Denies chest pain, Denies dyspnea and Denies dyspnea on exertion Resp Denies cough, Denies dyspnea and Denies dyspnea on exertion GI Denies hematochezia and Denies change in bowel habits Denies hematuria and Denies difficulty urinating Musc Denies back pain and Denies limited range of motion Neuro Denies focal weakness and Denies convulsions Psych Denies depression and Denies mood swings Physical Exam Const General: comfortable and no acute distress Resp Effort & Inspection: normal respiratory effort GI Other: Rectal exam shows no lesions in the perianal skin. He does have some diffuse dryness and superficial flaking of the skin consistent with his lichen simplex Palpation (GI): Soft to palpation Assessment & Plan Assessment & Plan (1) Lichen simplex chronicus: Code(s): L28.0 - Lichen simplex chronicus Category: Medical Plan: He has pruritus ani with biopsy showing lichen simplex chronicus. I am going to start him on a high potency steroid with clobetasol. He will do this on a tapering dose. I will see him again in the office in about 2 months and see how he is doing. He understands the plan. I have also advised him on good hygiene. He is to avoid sugary food and caffeine if possible. Medications: New clobetasol 0.05% 1 appl topical DAILY 30 grams 0RF Coding Level of Care Code Est Pt Level 3 (26411) Diagnoses Lichen simplex chronicus L28.0
[2024-06-25 08:40] VITALS: BP 131/81; PULSE 78; BMI 32.4
== END 2024-06-25 08:54 | disposition home or self-care (01) ==
PROVIDERS: PCP Nurse Practitioner Family; Visit Provider Surgery
DX: L28.0 Lichen simplex chronicus (principal)
CPT/HCPCS: 99213

== ENCOUNTER → 2024-06-25 08:31 | Outpatient (BNVA) | payer BC, SELFPAY | PROVIDERS: PCP Nurse Practitioner Family; Visit Provider Surgery ==

== ENCOUNTER 2024-07-15 12:08 | Outpatient (AMB) | payer BC, SELFPAY ==
[2024-07-15 12:35] VITALS: BMI 32.4
--- NOTE | 2024-07-15 12:35 | A.OFFVIS_ITS ---
VS Expanded 07/15/24 12:35 Height 5 ft 3 in Weight 183 lb 3.266 oz BMI 32.4 Intake Visit Reasons: obesity Allergies No Known Allergies Allergy (Verified 06/25/24 08:41) Nutrition Presentation Details: Pt presents for MNT f/u for obesity Pt reports lack of consistency in diet modifications, has increased on sugary beverages and resuming habit of pastries BS Monitoring Most Recent Diabetes Results: Cholesterol 182 mg/dL (<200) 06/11/24 HDL Cholesterol 37 mg/dL (>40) L 06/11/24 Triglycerides 264 mg/dL (<150) H 06/11/24 PFSH Medical History (Updated 06/25/24 @ 08:54 by Elder Barr MD) Lichen simplex chronicus Pruritus ani Elevated cholesterol COPD (chronic obstructive pulmonary disease) Anxiety and depression ED (erectile dysfunction) Surgical History Hx of surgical procedure (~04/12/23) H/O umbilical hernia repair Hx of colonoscopy Family History Mother Cancer Breast cancer Father No problems noted. 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 Current occupational exposures/hazards: No Cognitive needs: No Hearing needs: Yes Vision needs: No Assessment & Plan Assessment & Plan (1) Obesity (BMI 30.0-34.9): Code(s): E66.9 - Obesity, unspecified Category: Medical Plan: Wt: 85 Kg ( 12/30 ), 03/01, 83 kg(05/02),07/31 Est kcal needs as per MSJ: 2200 (40% carb, 30% protein/fat) Est fluid needs as per 25-30 ml/d: 2600 Est prot per day as per 1 g/kg bw: 85 Recommend fiber intake : 8-10 g per day and gradually increase to 25-28 g per day for women and 35-38 g for men or as tolerated Recommend sodium intake per day : less than 2000 mg Educated patient on: ( R = reviewed V = verbalizes understanding N/R = needs review N/A = not applicable * Food sources of carbohydrate, adequate serving sizes and its role in various health conditions: R ,v * Differences between complex carbohydrates a simple carbohydrates, role of fiber in diet: R * Lean protein sources of foods: R * Differences between types of fats and role in diet (mono on saturated fat fatty acids, saturated fatty acids, trans fats): R basic * Food sources of sodium in salt and healthy modifications for heart health in kidney health: R V R/V * Vitamins and minerals: R V N/R * Healthy plate method concept: R * Physical activity: Benefits a precaution: R V N/R Plan Goal wt 155 lbs Patient Instructions: Resume reducing on sugars Choose low sugar cereals (can add cinnamon/nutmeg for flavors) Have fruit with peanut butter as snack in place of pastries have herb/fruit flavor water , reducing on sugars from beverages see list of low sugar /high fiber food options Coding Level of Care Code Nutr Indiv Subseq (48732) Diagnoses Obesity (BMI 30.0-34.9) E66.9 Time Spent (min) 30
== END 2024-07-15 12:58 | disposition home or self-care (01) ==
LOC: HO.ENCR 12:09
PROVIDERS: PCP Nurse Practitioner Family; Visit Provider Dietitian, Registered
DX: E66.9 Obesity, unspecified (principal)

== ENCOUNTER → 2024-07-15 12:08 | Outpatient (BNVA) | payer BC, SELFPAY | PROVIDERS: PCP Nurse Practitioner Family; Visit Provider Dietitian, Registered | DX: E66.9 Obesity, unspecified (principal); Z68.32 Body mass index [BMI] 32.0-32.9, adult | CPT/HCPCS: 97803 ==

== ENCOUNTER 2024-08-03 14:50 | Outpatient (AMB) | payer BC, SELFPAY ==
--- NOTE | 2024-08-03 15:02 | MHC.PC.OV ---
Vital Signs 08/03/24 15:09 Height 5 ft 3 in Weight 188 lb 4 oz BMI 33.3 BP 127/76 Blood Pressure Location Rt brachial Position Sitting Respiration 16 Pulse 94 Pulse Source Pulse Oximeter Temp 97.8 F Temp Source Oral Pulse Oximetry (%) 95 Oxygen Delivery Method Room Air Intake Visit Reasons: RT ear leakage Intake Note: patient here c/o Right ear leakage Bilingual Call Center Representative Required: No Allergies No Known Allergies Allergy (Verified 08/03/24 15:20) Medication List - Last Reconciled 08/03/24 by Kimberly Alfaro CNP albuterol sulfate 2.5 mg (3 mL) inhalation Q4-6H PRN 30 days aripiprazole (Abilify) 2 mg PO DAILY 90 days atorvastatin 40 mg PO BEDTIME clobetasol 0.05% 1 appl topical DAILY cyclobenzaprine 10 mg PO TID 30 days fenofibrate 160 mg PO DAILY 30 days fluoxetine 40 mg PO DAILY lidocaine 5% (Hemorrhoidal Relief) 1 appl topical TID PRN melatonin 10 mg PO BEDTIME omega 3-udv-ask-fish oil 1,000 (120-180) mg (Fish Oil) 1 cap PO TID 30 days Tobacco use date assessed: 08/03/24 Dental Screening Dental Screen Date: 08/03/24 Did you have a dental visit in the last 12 months?: No Did you have a dental problem in the last 6 months where you did not have access to dental care?: No Was dental information given to patient?: Yes HPI HPI Comments History of Present Illness Details 49-year-old male presents with complaints of watery fluid his right ear for the past week and half. He denies active drainage but notes that the Q-tip gets wet when he cleans the ear. He is hard of hearing bilaterally and wears hearing aid. His right hearing aid recently stopped working and currently being repaired. He notes that the fluid from his right ear may have blocked the hearing aid. He denies ear pain, fever, chills, body aches. He reports history of perforated right TM. [facility] Medical History (Updated 08/03/24 @ 15:32 by Kimberly Alfaro CNP) Lichen simplex chronicus Pruritus ani Elevated cholesterol COPD (chronic obstructive pulmonary disease) Anxiety and depression ED (erectile dysfunction) Surgical History Hx of surgical procedure (~04/12/23) H/O umbilical hernia repair Hx of colonoscopy Family History Mother Cancer Breast cancer Father No problems noted. 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 Current occupational exposures/hazards: No Cognitive needs: No Hearing needs: Yes Vision needs: No Questionnaire Thrive Questionnaire Date Thrive assessed: 06/08/24 I am a: Patient What is your living situation today?: I have a steady place to live Within the past 12 months, did the food you bought not last and you didn't have the money to get more?: Never true Within the past 12 months, did you worry whether your food would run out before you got money to buy more?: Never true Do you have trouble paying for medicines?: No Do you have trouble getting transportation to medical appointments?: No Do you have trouble paying your heating and electricity bill?: I choose not to answer this question Do you have trouble taking care of your child, family member or friend?: No Do you have trouble with day-to-day activities such as bathing, preparing meals, shopping, managing finances, etc.?: No Are you currently unemployed and looking for a job?: No Are you interested in more education?: No Please select the resources that you would like help with: Utilities Currently or been in a relationship where the following occur: No concerns reported THRIVE Score: 0 JOSE-7 AMB Questionnaire JOSE-7 Date JOSE - 7 assessed: 06/11/24 Source: Developed by Drs. Andrea tSewart, Alana Cuello, Kenneth Lane and colleagues, with an educational parvez from [employer]. Review of Systems Const Details: Const Denies chills, Denies fatigue, Denies fever(s), Denies headache(s) and Denies weakness ENT Reports as per HPI Card Denies chest pain, Denies lightheadedness, Denies dyspnea and Denies other (Palpitations) Resp Denies cough, Denies dyspnea, Denies wheezing and Denies other ( shortness of breath) GI Denies abdominal pain, Denies melena, Denies hematochezia, Denies change in bowel habits, Denies dyspepsia and Denies nausea Denies hematuria and Denies dysuria Musc Denies abnormal gait, Denies myalgias, Denies arthralgias, Denies numbness and Denies tingling Skin/Breast Denies rash, Denies unusual bruising and Denies wounds Neuro Denies abnormal gait, Denies dizziness, Denies headache(s), Denies memory loss, Denies numbness, Denies Sensory deficit (Neuro), Denies tingling and Denies weakness Psych Denies anxiety, Denies depression, Denies memory loss Endo Denies cold intolerance, Denies fatigue, Denies heat intolerance, Denies polydipsia and Denies polyuria Aller/Immun Denies wheezing Physical exam (Primary Care) Vital Signs: Last Vital Signs Temp 97.8 F 08/03/24 15:09 Pulse 94 08/03/24 15:09 Resp 16 08/03/24 15:09 BP 127/76 08/03/24 15:09 Pulse Ox 95 08/03/24 15:09 Oxygen Delivery Method Room Air 08/03/24 15:09 BMI result Body Mass Index 33.3 Tobacco/Smoking Status: Tobacco use Status Tobacco use date assessed 08/03/24 08/03/24 15:12 Patient Tobacco Use Status Former Tobacco user 08/03/24 15:03 e-Cigarette/Vaping Use Never Used 08/03/24 15:03 Thrive Assessment: Date of Thrive Assessment Date Thrive assessed 06/08/24 08/03/24 15:03 Currently or been in a relationship where the following occur: No concerns reported Const Other: General: no acute distress and well developed Nutritional Appearance: well nourished Orientation/consciousness: patient oriented x3 HENMT Head is normocephalic Right TM with effusion, no overt infection Left ear canal and TM are normal Nasal turbinates and oropharynx are pink and moist Sinuses are nontender with palpation No auricular or cervical lymphadenopathy Eyes General: appearance normal, both eyes and all related structures Pupils: Equal, round and reactive pupils present EOM: EOMs intact bilaterally Resp Effort & Inspection: normal respiratory effort Auscultation: clear to auscultation bilaterally Cardio Rate: regular rate Rhythm: regular rhythm Heart sounds: S1 normal heart sound present, S2 normal heart sound present, no gallops, no murmurs and no rubs GI Palpation (GI): No Abdominal aortic bruit present, Soft to palpation, nontender, No hepatosplenomegaly present and No Rebound tenderness present Auscultation: normal bowel sounds General: Yes no CVA tenderness Back/Spine/Pelvis Back: no CVA tenderness Cervical Spine: cervical ROM normal and No Cervical spine tenderness Thoracic/Lumbar Spine: thoraco-lumbar ROM normal, No pain with thoraco-lumbar ROM, No thoracic spinal tenderness and No lumbar spinal tenderness Extrem General: Yes normal to inspection, No edema and No calf tenderness Skin General: warm and dry. Normal skin color. Normal skin turgor Neuro General: patient oriented x3, gait normal and no focal neuro deficit Cranial nerves: Yes Equal, round and reactive pupils present Cognition (Neuro): normal cognition Gait exam (Neuro): Normal gait present Sensory Exam: No Sensory deficit (Neuro) Psych Appearance: grossly normal Affect: normal affect Attitude: cooperative Thought process: Normal thought process present Coding Level of Care Code Est Pt Level 3 (98191) Diagnoses Right otitis media with effusion H65.91 Assessment & Plan Assessment & Plan (1) Right otitis media with effusion: Code(s): H65.91 - Unspecified nonsuppurative otitis media, right ear Category: Medical Plan: Right TM with effusion, no overt infection Advised to avoid repeated insertion of Q-tips in his ears. Inform PCP with pain, fever, chills, body aches. Urgent ENT referral made. Follow-up as needed. Verbalized understanding and agreed with the plan. Orders: Referrals Ear/Nose/Throat Referral H65.91 - Unspecified nonsuppurative otitis media, right ear
[2024-08-03 15:09] VITALS: BP 127/76; PULSE 94; RESP 16; TEMP 36.6; O2SAT 95; BMI 33.3
== END 2024-08-03 15:32 | disposition home or self-care (01) ==
LOC: HO.HMCFM 14:51
PROVIDERS: PCP Nurse Practitioner Family; Visit Provider Nurse Practitioner Family
DX: H65.91 Unspecified nonsuppurative otitis media, right ear (principal)

== ENCOUNTER → 2024-08-03 14:50 | Outpatient (BNVA) | payer BC, SELFPAY | PROVIDERS: PCP Nurse Practitioner Family; Visit Provider Nurse Practitioner Family | DX: Z13.89 Encounter for screening for other disorder (principal) ==

== ENCOUNTER 2024-09-15 14:43 | Outpatient (AMB) | payer BC, SELFPAY ==
--- NOTE | 2024-09-15 14:46 | MHC.OFFVIS ---
Vital Signs 09/15/24 14:51 Height 5 ft 3 in Weight 186 lb BMI 32.9 BP 136/87 Blood Pressure Location Rt brachial Position Sitting Pulse 72 Intake Visit Reasons: 2m follow up fissures Intake Note: Patient here for 2m follow up Lichen Simplex Chronicus of anus. Reports improvement with Clobetasol cream. Patient c/o: no concerns. Clinical Support Manager Required: No Accompanied by: Self / Same As Patient Allergies No Known Allergies Allergy (Verified 09/15/24 14:50) Medication List - Last Reconciled 09/15/24 by Elder Barr MD albuterol sulfate 2.5 mg (3 mL) inhalation Q4-6H PRN 30 days aripiprazole (Abilify) 2 mg PO DAILY 90 days atorvastatin 40 mg PO BEDTIME clobetasol 0.05% 1 appl topical DAILY clobetasol 0.05% 1 appl topical DAILY cyclobenzaprine 10 mg PO TID 30 days fenofibrate 160 mg PO DAILY 30 days fluoxetine 40 mg PO DAILY lidocaine 5% (Hemorrhoidal Relief) 1 appl topical TID PRN melatonin 10 mg PO BEDTIME omega 7-nlt-gbq-fish oil 1,000 (120-180) mg (Fish Oil) 1 cap PO TID 30 days HPI HPI 2m follow up fissures: Details: He is here for follow-up for his pruritus ani with lichen simplex chronicus on biopsies I had started him on clobetasol as a high potency steroid last June, He says that this has helped a lot and he says he no longer has symptoms. He feels great and does not have any perianal complaints at this time. [facility] Medical History Lichen simplex chronicus Pruritus ani Elevated cholesterol COPD (chronic obstructive pulmonary disease) Anxiety and depression ED (erectile dysfunction) Surgical History Hx of surgical procedure (~04/12/23) H/O umbilical hernia repair Hx of colonoscopy Family History Mother Cancer Breast cancer Father No problems noted. 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 Current occupational exposures/hazards: No Cognitive needs: No Hearing needs: Yes Vision needs: No Review of Systems Const Denies chills and Denies fever(s) Card Denies chest pain Resp Denies cough GI Denies abdominal pain Physical Exam Vital Signs: Last Vital Signs Pulse 72 09/15/24 14:51 BP 136/87 09/15/24 14:51 BMI result Body Mass Index 32.9 Const General: comfortable and no acute distress Resp Effort & Inspection: normal respiratory effort GI Other: Rectal exam shows some chronic circumferential dermatitic changes in the perianal skin without any obvious lesions, no skin breakdown, well-defined margins uniformly Assessment & Plan Assessment & Plan (1) Lichen simplex chronicus: Code(s): L28.0 - Lichen simplex chronicus Category: Medical Plan: I had started him on clobetasol as a high potency steroid. He says that this has helped a lot in his symptoms have resolved I reminded him not to use the clobetasol cream continuously for more than 3 weeks at a time. He says that he is doing very well now and has had no problems with the perianal area. He says he will follow up with me on a p.r.n. basis. Coding Level of Care Code Est Pt Level 3 (28341) Diagnoses Lichen simplex chronicus L28.0
[2024-09-15 14:51] VITALS: BP 136/87; PULSE 72; BMI 32.9
--- OUTSIDE RECORDS SUMMARY | 2024-09-15 17:45 | XMS_ITS | Data Portability ---
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 No hearing concerns. Cerumen impactions removed bilaterally, revealing right-sided otorrhea and squamous debris. Left TM is normal to inspection. Right TM is difficult to visualize in the setting of acute infective otitis externa. Recommend topical tobradex twice daily for 10 days. Reviewed drop administration and water precautions. Patient will return for revaluation in 3 weeks to assess for infection resolution. [email or web address] Not available 09/09/2024 17:09:17 Plan of Treatment Reminders Order Date Submit Date Provider Last Modified By Organization Details Last Modified Time Details Appointments Hearing Test 2024 01:30P M Hearing Test Not available Not available Not available FOLLOW UP 15 2024 02:15P M JOVON YOUNG PA-C Not available Not available Not available Lab None recorded. Referral None recorded. Procedures None recorded. Surgeries None recorded. Imaging None recorded. Medication Orders tobramyci n 0.3 %-dexamet hasone 0.1 % eye drops,pee pension 2024 025 [facility]/Pharmacy #[id number], [address] [facility] Francie Dunlap [place], [id number], 09/09/2024 15:52:02 Patient TargetsNo targets recorded. Patient InstructionsNo instructions recorded. Reason for Referral None Reported. Problems Name Problem SNOMED Code Status Onset Date Resolution Date Notes Provider Name and Address Organization Details Recorded Time Marginal perforati on of tympanic membrane 69656980 Active 2023 Other marginal perforati ons of tympanic membrane, right ear; Note: Date Diagnosed : 07/17/2023 3:12 PM (H72.2X1) Not Available [facility] 4 02:41:29 Mixed conductiv e and sensorine ural hearing loss of right ear 14301718637 105 Active 2023 Mixed conductiv e and sensorine ural hearing loss, unilatera l, right ear, with unrestric ehsan hearing on the contralat eral side; Note: Date Diagnosed : 07/17/2023 3:12 PM (H90.71) Not Available [facility] 4 02:41:31 Sensorine ural hearing loss in left ear 92015154105 109 Active 2023 Sensorine ural hearing loss, unilatera l, left ear, with restricte d hearing on the contralat eral side; Note: Date Diagnosed : 07/17/2023 3:13 PM (H90.A22) Not Available [facility] 4 02:41:40 Otorrhea of right ear 37910751845 07222 Active 2024 JOVON YOUNG PA-C [address] [place] [address], [facility] [place], [phone] , [facility] - [facility] 5 15:51:07 Problem Notes None recorded. Medical Equipment None Reported. Allergies No known drug allergies Medications Name Sig Start Date Stop Date Status Note LastModified by Organization Details LastModified Time fluoxetine 40 mg capsule TAKE 1 CAPSULE BY MOUTH EVERY DAY active Not Available Not Available No t Available atorvastat in 40 mg tablet TAKE 1 TABLET BY MOUTH EVERY DAY AT BEDTIME active Not Available Not Available No t Available clobetasol 0.05 % topical cream APPLY 1 APPLICATI ONFUL TOPICALLY DAILY active Not Available Not Available No t Available tobramycin 0.3 %-dexameth asone 0.1 % eye drops,susp ension INSTILL 4 DROPS INTO RIGHT EAR TWICE DAILY FOR 10 DAYS 2024 active Not Available Not Available Not Avai lable omega-3 acid ethyl esters 1 gram capsule TAKE 1 CAPSULE BY MOUTH THREE TIMES A DAY FOR 30 DAYS active Not Available Not Available No t Available fenofibrat e 160 mg tablet TAKE 1 TABLET BY MOUTH EVERY DAY active Not Available Not Available No t Available aripiprazo le 2 mg tablet TAKE 1 TABLET BY MOUTH DAILY FOR 30 DAYS active Not Available Not Available No t Available omega-3 fatty acids-fish oil 300 mg-1,000 mg capsule TAKE 1 CAPSULE BY MOUTH THREE TIMES A DAY active Not Available Not Available No t Available fenofibrat e 120 mg tablet TAKE 1 TABLET BY MOUTH EVERY DAY FOR 30 DAYS active Not Available Not Available No t Available fenofibrat e 54 mg tablet active Medicatio n ID: [id number] Br and Name: solangeofibra silvia Send Method: E-Prescri bed Subs Allowed: subs OK Medica tionGener icName: fenofibra te Not Available Not Available Not Available Calmosepti ne 0.44 %-20.6 % topical ointment USE 1 APPLICATI ON TOPICALLY 4 TIMES A DAY NEEDED FOR PERIANAL ITCHING active Not Available Not Available No t Available Vitals Date Recorded Body height Body mass index (BMI) Body weight Provider Name and Address Organization Details Last Updated DateTime 09/09/2024 157.48 cm 32.9 kg/m2 14476.63 g Gale Chapman [place] - [facility] 09/09/2024 15:29:09 Social History Question Answer Notes LastModified by Organizat ion Details LastModified Time Tobacco Smoking Status Former Smoker Gale whitfield MD - [facility] 09/09/2024 15:29:23 What Type Of Corn Picker Do You Use? None Information not available 09/09/2024 When Did You Quit Smoking? 16+yearssinc elastcigaret te Information not available 09/09/2024 What Is Your Current Pack Years? 30ormorepack years Information not available 09/09/2024 Do You Have Any Pets? Yes Information not available 09/09/2024 At What Age Did You Start Smoking Tobacco? 10 Information not available 09/09/2024 Are You Passively Exposed To Smoke? No Information not available 09/09/2024 Are There Any Smokers In Your House? No Information not available 09/09/2024 How Much Tobacco Do You Smoke? No Information not available 09/09/2024 How Many Years Have You Smoked Tobacco? 24 Information not available 09/09/2024 Sex: Unknown Functional Status Question Answer Note LastModified by Organizat ion Details LastModified Time Do you use any illicit or recreational drugs? No Information not available 09/09/2024 Do you or have you ever used any other forms of tobacco or nicotine? No Information not available 09/09/2024 What is your level of alcohol consumption? None Information not available 09/09/2024 What type of noise exposure are you exposed to? Other Information not available 09/09/2024 Mental Status None recorded. Family History Nothing Reported. Medical History Condition Response Tonsil Infections N Emphysema N Glaucoma N Depression Y COPD Y Nasal or Sinus Problems N Anesthesia Complications N Arthritis N Hearing Loss Y Cancer N Stroke N High Cholesterol Y Liver Disease N Headaches Y Fibromyalgia N Speech Delay N Kidney Disease N Allergies/Hayfever N Heart Problems N Anxiety Y Migraines Y Thyroid Problems N Developmental Delay N Anemia Y Immune System Disorder N Heart Attack ([place]) N Other Skin Condition N Diabetes N Rhinitis N Bleeding Disorder N Food Allergy N Hyperlipidemia N Dementia N Nasal polyps N Asthma N Sleep Disorder N GERD/Reflux Y Hypertension N Past Encounters Encounter ID Performer Location Encounter Start Date Encounter Closed Date Diagnosis/Indication Diagnosis SNOMED-CT Code Diagnosis ICD10 Code Diagnosis Note [id number] JOVON YOUNG PA-C [facility] [address] [address] 09/09/2024 15:00:28 09/09/2024 15:50:15 Otorrhea of right ear [id number] 708986 H92.11 Mixed cond uctive and sensorineural hearing loss of right ear 7176855596 9105 H90.71 Sensorineu ral hearing loss in left ear 8239719787 9109 H90.A22 Health Concerns Section Related Observation LastModified by Organization Detai ls LastModified Time None Recorded Concern Status LastModified by Organization Details LastModified Time None Recorded Advance Directives Directive None Recorded Payers Insurance Date Sequence Insurance Name Policy Number Policy Skinner Covered Member ID Skinner Member ID Guarantor Name 09/11/2024 1 FEI Luther [id number] Mark Luther Notes Date Note Type Note Provider Name and Address Organization Details Recorded Time 09/09/2024 text/html 49yo male with 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 Known right TM perforation. Reports no change in hearing. Endorses right-sided ear drainage for a couple months. He has not been wearing his right hearing aid as a result. Denies ear pain. ROSALBA KELSEY MD [address] [place] [address], [id number] - [facility] 09/09/2024 17:16:17
== END 2024-09-15 15:17 | disposition home or self-care (01) ==
LOC: HO.HGS 14:44
PROVIDERS: PCP Nurse Practitioner Family; Visit Provider Surgery
DX: L28.0 Lichen simplex chronicus (principal)
CPT/HCPCS: 99213

== ENCOUNTER 2024-09-18 08:02 | Outpatient (REF) | payer BC, SELFPAY ==
--- OUTSIDE RECORDS SUMMARY | 2024-09-18 08:05 | XMS_ITS | Data Portability ---
Author Organization [place] - [facility], Allergy Address [address] [place] [id number] Assessment Encounter Date Assessment Date Assessment LastModified [...] 0.1 % eye drops,pee pension 2024 025 [facility]/Pharmacy #[id number], [address] [facility] Francie Dunlap [place], [address], 09/09/2024 15:52:02 Patient TargetsNo targets recorded. Patient InstructionsNo instructions recorded. Reason for Referral None Reported. Problems Name Problem SNOMED Code Status Onset Date Resolution Date Notes Provider Name and Address Organization Details Recorded Time Marginal perforati on of tympanic membrane 63876961 Active 2023 Other marginal perforati ons of tympanic membrane, right ear; Note: Date Diagnosed : 07/17/2023 3:12 PM (H72.2X1) Not Available [facility] 4 02:41:29 Mixed conductiv e and sensorine ural hearing loss of right ear 44710202369 105 Active 2023 Mixed conductiv e and sensorine ural hearing loss, unilatera l, right ear, with unrestric ehsan hearing on the contralat eral side; Note: Date Diagnosed : 07/17/2023 3:12 PM (H90.71) Not Available [facility] 4 02:41:31 Sensorine ural hearing loss in left ear 90109862911 109 Active 2023 Sensorine ural hearing loss, unilatera l, left ear, with restricte d hearing on the contralat eral side; Note: Date Diagnosed : 07/17/2023 3:13 PM (H90.A22) Not Available [facility] 4 02:41:40 Otorrhea of right ear 30032970711 45323 Active 2024 JOVON YOUNG PA-C [address] [place] [address], [facility] [place], [id number] , [facility] - [facility] 5 15:51:07 Problem Notes None recorded. Medical [...] 54 mg tablet active Medicatio n ID: [id number] Br and Name: solangeofibra silvia Send Method: [...] Updated DateTime 09/09/2024 157.48 cm 32.9 kg/m2 97349.63 g Gale Chapman [place] - [facility] 09/09/2024 15:29:09 Social History Question Answer Notes LastModified by Organizat ion Details LastModified Time Tobacco Smoking Status Former Smoker Gale whitfield [place] - [facility] 09/09/2024 15:29:23 What Type Of Operator Assistant I Cementing Do You Use? None Information not available [...] History Nothing Reported. Medical History Condition Response Allergies/Hayfever N Heart Problems N Anxiety Y Tonsil Infections N Emphysema N Migraines Y Thyroid Problems N Glaucoma N Depression Y COPD Y Developmental Delay N Nasal or Sinus Problems N Anemia Y Immune System Disorder N Anesthesia Complications N Heart Attack ([place]) N Other Skin Condition N Diabetes N Rhinitis N Bleeding Disorder N Food Allergy N Arthritis N Hearing Loss Y Hyperlipidemia N Cancer N Stroke N Dementia N Nasal polyps N Asthma N High Cholesterol Y Sleep Disorder N GERD/Reflux Y Liver Disease N Headaches Y Fibromyalgia N Hypertension N Speech Delay N Kidney Disease N Past Encounters Encounter ID Performer Location Encounter Start Date Encounter Closed Date Diagnosis/Indication Diagnosis SNOMED-CT Code Diagnosis ICD10 Code Diagnosis Note [id number] JOVON YOUNG PA-C [facility] [address] [address] 09/09/2024 15:00:28 09/09/2024 15:50:15 Otorrhea of right ear [id number] 098145 H92.11 Mixed cond uctive and sensorineural hearing loss of right ear 0112298744 9105 H90.71 Sensorineu ral hearing loss in left ear 4904259706 9109 H90.A22 Health Concerns Section Related Observation LastModified by Organization Detai ls LastModified Time None Recorded Concern Status LastModified by Organization Details LastModified Time None Recorded Advance Directives Directive None Recorded Payers Insurance Date Sequence Insurance Name Policy Number Policy Skinner Covered Member ID Skinner Member ID Guarantor Name 09/11/2024 1 FEI [id number] Mark Luther Notes Date Note Type [...] result. Denies ear pain. ROSALBA KELSEY MD [address] [place] [address], [id number] - [facility] 09/09/2024 17:16:17
[2024-09-18 11:19] LABS: Cholesterol 172 mg/dL (<200); HDL Cholesterol 46 mg/dL (>40); LDL Cholesterol Calculated 95 mg/dL (<100); Triglycerides 157 mg/dL (<150)
== END 2024-09-18 08:03 | disposition home or self-care (01) ==
LOC: HO.WFDLDS 08:02
PROVIDERS: Visit Provider Nurse Practitioner Family
DX: F41.9 Anxiety disorder, unspecified (principal); F32.9 Major depressive disorder, single episode, unspecified; E78.00 Pure hypercholesterolemia, unspecified; Z13.31 Encounter for screening for depression
CPT/HCPCS: 36415; 80061; 96127

== ENCOUNTER 2024-09-18 15:28 | Outpatient (AMB) | payer BC, SELFPAY ==
--- NOTE | 2024-09-18 15:44 | A.OFFPC_ITS ---
Vital Signs 09/18/24 15:51 Height 5 ft 3 in Weight 186 lb 6 oz BMI 33.0 BP 118/78 Blood Pressure Location Rt brachial Position Sitting Respiration 17 Pulse 89 Pulse Source Pulse Oximeter Temp 97.9 F Temp Source Temporal Artery Scan Pulse Oximetry (%) 95 Oxygen Delivery Method Room Air Intake Visit Reasons: 3 mos anxiety, depression Intake Note: Mark Presents in the office today for a 3 month follow up to anxiety and depression. Allergies No Known Allergies Allergy (Verified 09/18/24 15:58) Medication List - Last Reconciled 09/18/24 by Kimberly Alfaro CNP albuterol sulfate 2.5 mg (3 mL) inhalation Q4-6H PRN 30 days aripiprazole (Abilify) 2 mg PO DAILY 90 days atorvastatin 40 mg PO BEDTIME clobetasol 0.05% 1 appl topical DAILY clobetasol 0.05% 1 appl topical DAILY cyclobenzaprine 10 mg PO TID 30 days fenofibrate 160 mg PO DAILY 30 days fluoxetine 40 mg PO DAILY lidocaine 5% (Hemorrhoidal Relief) 1 appl topical TID PRN melatonin 10 mg PO BEDTIME omega 5-wcd-etv-fish oil 1,000 (120-180) mg (Fish Oil) 1 cap PO TID 30 days Tobacco use date assessed: 09/18/24 Dental Screening Dental Screen Date: 09/18/24 Did you have a dental visit in the last 12 months?: No Did you have a dental problem in the last 6 months where you did not have access to dental care?: No Was dental information given to patient?: Patient declined HPI HPI Comments History of Present Illness Details 49-year-old male presents for hyperlipid emia, anxiety, and depression f ollow-up. He admits to taking his medications as prescribed without adverse reactions. He notes that his anxiety and depressive symptoms are generally well controlled. He generally makes healthy dietary choices. He is active but has not been exercising. He offers no complaints and denies acute symptoms at this time. [facility] Medical History Lichen simplex chronicus Pruritus ani Elevated cholesterol COPD (chronic obstructive pulmonary disease) Anxiety and depression ED (erectile dysfunction) Surgical History Hx of surgical procedure (~04/12/23) H/O umbilical hernia repair Hx of colonoscopy Family History (Updated 09/18/24 @ 15:51 by Whitley Mai MA) Mother Cancer Breast cancer Father No problems noted. 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 1. Little interest or pleasure in doing things: several days 2. Feeling down, depressed, or hopeless: several days 3. Trouble falling or staying asleep, or sleeping too much: several days 4. Feeling tired or having little energy: nearly every day 5. Poor appetite or overeating: more than half the days 6. Feeling bad about yourself - or that you are a failure or have let yourself or your family down: not at all 7. Trouble concentrating on things, such as reading the newspaper or watching television: more than half the days 8. Moving or speaking so slowly that other people could have noticed. Or the opposite - being so fidgety or restless that you have been moving around a lot more than usual: not at all 9. Thoughts that you would be better off or of hurting yourself in some way: not at all Total score: 10 Depression Screening Interpretation: Positive Depression Screening Follow-up: Existing condition and In treatment Depression Screening Done: Yes 71455 - PHQ-9 Billing: Yes Source: Developed by Drs. Andrea Stewart, Alana Cuello, Kenneth Lane and colleagues, with an educational parvez from [employer]. Thrive Questionnaire Date Thrive assessed: 06/08/24 I am a: Patient What is your living situation today?: I have a steady place to live Within the past 12 months, did the food you bought not last and you didn't have the money to get more?: Never true Within the past 12 months, did you worry whether your food would run out before you got money to buy more?: Never true Do you have trouble paying for medicines?: No Do you have trouble getting transportation to medical appointments?: No Do you have trouble paying your heating and electricity bill?: I choose not to answer this question Do you have trouble taking care of your child, family member or friend?: No Do you have trouble with day-to-day activities such as bathing, preparing meals, shopping, managing finances, etc.?: No Are you currently unemployed and looking for a job?: No Are you interested in more education?: No Please select the resources that you would like help with: Utilities Currently or been in a relationship where the following occur: No concerns reported THRIVE Score: 0 JOSE-7 AMB Questionnaire JOSE-7 Date JOSE - 7 assessed: 09/18/24 Feeling nervous, anxious, or on edge: 1 = Several days Not being able to stop or control worryin = Not at all Worrying too much about different things: 0 = Not at all Trouble relaxin = Several days Being so restless that it is hard to sit still: 1 = Several days Becoming easily annoyed or irritable: 1 = Several days Feeling afraid as if something awful might happen: 0 = Not at all Total JOSE-7 score (0-4 normal; 5-9 mild; 10-14 moderate; 15-21 severe): 4 Source: Developed by Drs. Andrea Stewart, Alana Cuello, Kenneth Lane and colleagues, with an educational parvez from [employer]. JOSE-7 Assessment Billing JOSE-7 Assessment Tool: JOSE-7 Assessment 28098 Review of Systems Const Details: Const Denies chills, Denies fatigue, Denies fever(s), Denies headache(s) and Denies weakness ENT Denies dizziness and Denies headache(s) Card Denies chest pain, Denies lightheadedness, Denies dyspnea and Denies other (Palpitations) Resp Denies cough, Denies dyspnea, Denies wheezing and Denies other ( shortness of breath) GI Denies abdominal pain, Denies melena, Denies hematochezia, Denies change in soledad wel habits, Denies dyspepsia and Denies nausea Denies hematuria and Denies dysuria Musc Denies abnormal gait, Denies myalgias, Denies arthralgias, Denies numbness and Denies tingling Skin/Breast Denies rash, Denies unusual bruising and Denies wounds Neuro Denies abnormal gait, Denies dizziness, Denies headache(s), Denies memory loss, Denies numbness, Denies Sensory deficit (Neuro), Denies tingling and Denies weakness Psych Denies anxiety, Denies depression, Denies memory loss Endo Denies cold intolerance, Denies fatigue, Denies heat intolerance, Denies polydipsia and Denies polyuria Aller/Immun Denies wheezing Physical exam (Primary Care) Vital Signs: Last Vital Signs Temp 97.9 F 09/18/24 15:51 Pulse 89 09/18/24 15:51 Resp 17 09/18/24 15:51 BP 118/78 09/18/24 15:51 Pulse Ox 95 09/18/24 15:51 Oxygen Delivery Method Room Air 09/18/24 15:51 BMI result Body Mass Index 33.0 Tobacco/Smoking Status: Tobacco use Status Tobacco use date assessed 09/18/24 09/18/24 15:46 Patient Tobacco Use Status Former Tobacco user 09/18/24 15:51 e-Cigarette/Vaping Use Never Used 09/18/24 15:51 PHQ-9: PHQ-9 Score PHQ-9: Total score 10 09/18/24 15:57 Depression Screening Interpretation: Positive Depression Screening Follow-up: Existing condition and In treatment Thrive Assessment: Date of Thrive Assessment Date Thrive assessed 06/08/24 09/18/24 15:46 Currently or been in a relationship where the following occur: No concerns reported Const Other: General: no acute distress and well developed Nutritional Appearance: well nourished Orientation/consciousness: patient oriented x3 HENMT Head: Yes normocephalic and Yes atraumatic Eyes General: appearance normal, both eyes and all related structures Pupils: Equal, round and reactive pupils present EOM: EOMs intact bilaterally Resp Effort & Inspection: normal respiratory effort Auscultation: clear to auscultation bilaterally Cardio Rate: regular rate Rhythm: regular rhythm Heart sounds: S1 normal heart sound present, S2 normal heart sound present, no gallops, no murmurs and no rubs GI Palpation (GI): No Abdominal aortic bruit present, Soft to palpation, nontender, No hepatosplenomegaly present and No Rebound tenderness present Auscultation: normal bowel sounds General: Yes no CVA tenderness Back/Spine/Pelvis Back: no CVA tenderness Cervical Spine: cervical ROM normal and No Cervical spine tenderness Thoracic/Lumbar Spine: thoraco-lumbar ROM normal, No pain with thoraco-lumbar ROM, No thoracic spinal tenderness and No lumbar spinal tenderness Extrem General: Yes normal to inspection, No edema and No calf tenderness Skin General: warm and dry. Normal skin color. Normal skin turgor Neuro General: patient oriented x3, gait normal and no focal neuro deficit Cranial nerves: Yes Equal, round and reactive pupils present Cognition (Neuro): normal cognition Gait exam (Neuro): Normal gait present Sensory Exam: No Sensory deficit (Neuro) Psych Appearance: grossly normal Affect: normal affect Attitude: cooperative Thought process: Normal thought process present Coding Level of Care Code Est Pt Level 3 (87752) Diagnoses Anxiety and depression F41.9; F32.9 High cholesterol E78.00 Additional Codes JOSE-7 Assessment Billing - JOSE-7 Assessment Tool: JOSE-7 Assessment 83906 ([id number]) PHQ-9 - 57673 - PHQ-9 Billing: Yes ([id number]) Assessment & Plan Assessment & Plan (1) Anxiety and depression: Code(s): F41.9 - Anxiety disorder, unspecified; F32.9 - Major depressive disorder, single episode, unspecified Category: Medical Plan: Reports controlled anxiety and depressive symptoms. PHQ-9 score revealed moderate depression. JOSE-7 score is normal. Continue current treatment regimen. Routine exercise encouraged. Follow-up in 3 months or sooner with worsening or new symptoms. Verbalized understanding and agreed with the treatment plan. (2) High cholesterol: Code(s): E78.00 - Pure hypercholesterolemia, unspecified Category: Medical Plan: Recent triglycerides level is 157 from 264. Continue current treatment regimen. Advised to limit foods high in saturated fat and avoid foods high in trans fat. Routine exercise encouraged. Fast for 10-12 hours, may drink water, and perform lipid panel blood work 2-3 days before next visit. Follow-up in 3 months. Verbalized understanding and agreed with the plan. Orders: Orders Lipid Panel 3 Months E78.00 - Pure hypercholesterolemia, unspecified
[2024-09-18 15:51] VITALS: BP 118/78; PULSE 89; RESP 17; TEMP 36.6; O2SAT 95; BMI 33.0
== END 2024-09-18 16:04 | disposition home or self-care (01) ==
LOC: HO.HMCFM 15:29
PROVIDERS: PCP Nurse Practitioner Family; Visit Provider Nurse Practitioner Family
DX: F41.9 Anxiety disorder, unspecified (principal); F32.9 Major depressive disorder, single episode, unspecified; E78.00 Pure hypercholesterolemia, unspecified

== ENCOUNTER 2024-12-19 09:21 | Outpatient (REF) | payer BC, SELFPAY ==
[2024-12-19 11:34] LABS: Cholesterol 218 mg/dL (<200); HDL Cholesterol 39 mg/dL (>40); Triglycerides 221 mg/dL (<150)
== END 2024-12-19 09:22 | disposition home or self-care (01) ==
LOC: HO.HMGCLDS 09:21
PROVIDERS: PCP Nurse Practitioner Family; Visit Provider Nurse Practitioner Family
DX: E78.00 Pure hypercholesterolemia, unspecified (principal)
CPT/HCPCS: 36415; 80061

== ENCOUNTER 2024-12-21 14:52 | Outpatient (AMB) | payer BC, SELFPAY ==
--- NOTE | 2024-12-21 14:58 | A.OFFPC_ITS ---
Vital Signs 12/21/24 15:03 12/21/24 15:23 Height 5 ft 3 in Weight 186 lb 2 oz BMI 33.0 BP 132/82 Blood Pressure Location Lt brachial Position Sitting Respiration 16 Pulse 105 H 96 Pulse Source Pulse Oximeter Temp 97.9 F Temp Source Oral Pulse Oximetry (%) 97 Oxygen Delivery Method Room Air Intake Visit Reasons: 3 mos HLD, anxiety, depression Intake Note: patient here for 3 month follow up on HLD, anxiety and depression [employer] Required: No Allergies No Known Allergies Allergy (Verified 12/21/24 15:02) Tobacco use date assessed: 12/21/24 Dental Screening Dental Screen Date: 12/21/24 Did you have a dental visit in the last 12 months?: No Did you have a dental problem in the last 6 months where you did not have access to dental care?: No Was dental information given to patient?: No HPI HPI Comments History of Present Illness Details 49-year-old male presents for hyperlipid emia, anxiety, and depression f ollow-up. He admits to taking his medications as prescribed without adverse reactions. However, he had diarrhea stopped taking atorvastatin for about a month and a half due to concern about potential adverse reaction. He resume taking the medication after the diarrhea subsided. He is unsure exactly what he stopped and restarted the medication. She notes that for the past couple of month, he has been experiencing anxiousness with palpations and sweating to his forehead, arms/palms. He attributes his symtpoms to multiple triggers that involve planning, like coming to his doctor's appointment. [facility] Medical History Lichen simplex chronicus Pruritus ani Elevated cholesterol COPD (chronic obstructive pulmonary disease) Anxiety and depression ED (erectile dysfunction) Surgical History Hx of surgical procedure (~04/12/23) H/O umbilical hernia repair Hx of colonoscopy Family History (Updated 09/18/24 @ 15:51 by Whitley Mai MA) Mother Cancer Breast cancer Father No problems noted. 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 1. Little interest or pleasure in doing things: several days 2. Feeling down, depressed, or hopeless: not at all 3. Trouble falling or staying asleep, or sleeping too much: several days 4. Feeling tired or having little energy: more than half the days 5. Poor appetite or overeating: nearly every day 6. Feeling bad about yourself - or that you are a failure or have let yourself or your family down: not at all 7. Trouble concentrating on things, such as reading the newspaper or watching television: not at all 8. Moving or speaking so slowly that other people could have noticed. Or the opposite - being so fidgety or restless that you have been moving around a lot more than usual: not at all 9. Thoughts that you would be better off or of hurting yourself in some way: not at all Total score: 7 Depression Screening Interpretation: Positive Depression Screening Follow-up: Existing condition and In treatment Depression Screening Done: Yes 45882 - PHQ-9 Billing: Yes Source: Developed by Drs. Andrea Stewart, Alana Cuello, Kenneth Lane and colleagues, with an educational parvez from [employer]. Thrive Questionnaire Date Thrive assessed: 06/08/24 I am a: Patient What is your living situation today?: I have a steady place to live Within the past 12 months, did the food you bought not last and you didn't have the money to get more?: Never true Within the past 12 months, did you worry whether your food would run out before you got money to buy more?: Never true Do you have trouble paying for medicines?: No Do you have trouble getting transportation to medical appointments?: No Do you have trouble paying your heating and electricity bill?: I choose not to answer this question Do you have trouble taking care of your child, family member or friend?: No Do you have trouble with day-to-day activities such as bathing, preparing meals, shopping, managing finances, etc.?: No Are you currently unemployed and looking for a job?: No Are you interested in more education?: No Please select the resources that you would like help with: Utilities Currently or been in a relationship where the following occur: No concerns reported THRIVE Score: 0 JOSE-7 AMB Questionnaire JOSE-7 Date JOSE - 7 assessed: 12/21/24 Feeling nervous, anxious, or on edge: 1 = Several days Not being able to stop or control worryin = Not at all Worrying too much about different things: 0 = Not at all Trouble relaxin = Several days Being so restless that it is hard to sit still: 0 = Not at all Becoming easily annoyed or irritable: 1 = Several days Feeling afraid as if something awful might happen: 0 = Not at all Total JOSE-7 score (0-4 normal; 5-9 mild; 10-14 moderate; 15-21 severe): 3 Source: Developed by Drs. Andrea Stewart, Alana Cuello, Kenneth Lane and colleagues, with an educational parvez from [employer]. JOSE-7 Assessment Billing JOSE-7 Assessment Tool: JOSE-7 Assessment 25798 Review of Systems Const Details: Const Denies chills, Denies fatigue, Denies fever(s), Denies headache(s) and Denies weakness ENT Denies dizziness and Denies headache(s) Card Denies chest pain, Denies lightheadedness, Denies dyspnea and Denies other (Palpitations) Resp Denies cough, Denies dyspnea, Denies wheezing and Denies other ( shortness of breath) GI Denies abdominal pain, Denies melena, Denies hematochezia, Denies change in bowel habits, Denies dyspepsia and Denies nausea Denies hematuria and Denies dysuria Musc Denies abnormal gait, Denies myalgias, Denies arthralgias, Denies numbness and Denies tingling Skin/Breast Denies rash, Denies unusual bruising and Denies wounds Neuro Denies abnormal gait, Denies dizziness, Denies headache(s), Denies memory loss, Denies numbness, Denies Sensory deficit (Neuro), Denies tingling and Denies weakness Psych Denies anxiety, Denies depression, Denies memory loss Endo Denies cold intolerance, Denies fatigue, Denies heat intolerance, Denies polydipsia and Denies polyuria Aller/Immun Denies wheezing Physical exam (Primary Care) Vital Signs: Last Vital Signs Temp 97.9 F 12/21/24 15:03 Pulse 105 H 12/21/24 15:03 Resp 16 12/21/24 15:03 BP 132/82 12/21/24 15:03 Pulse Ox 97 12/21/24 15:03 Oxygen Delivery Method Room Air 12/21/24 15:03 BMI result Body Mass Index 33.0 Tobacco/Smoking Status: Tobacco use Status Tobacco use date assessed 12/21/24 12/21/24 15:07 Patient Tobacco Use Status Former Tobacco user 12/21/24 15:07 e-Cigarette/Vaping Use Never Used 12/21/24 15:07 PHQ-9: PHQ-9 Score PHQ-9: Total score 7 12/21/24 15:12 Depression Screening Interpretation: Positive Depression Screening Follow-up: E xisting condition and In treatment Thrive Assessment: Date of Thrive Assessment Date Thrive assessed 06/08/24 12/21/24 15:07 Currently or been in a relationship where the following occur: No concerns reported Const Other: General: no acute distress and well developed Nutritional Appearance: well nourished Orientation/consciousness: patient oriented x3 HENMT Head: Yes normocephalic and Yes atraumatic Eyes General: appearance normal, both eyes and all related structures Pupils: Equal, round and reactive pupils present EOM: EOMs intact bilaterally Resp Effort & Inspection: normal respiratory effort Auscultation: clear to auscultation bilaterally Cardio Rate: regular rate Rhythm: regular rhythm Heart sounds: S1 normal heart sound present, S2 normal heart sound present, no gallops, no murmurs and no rubs GI Palpation (GI): No Abdominal aortic bruit present, Soft to palpation, nontender, No hepatosplenomegaly present and No Rebound tenderness present Auscultation: normal bowel sounds General: Yes no CVA tenderness Back/Spine/Pelvis Back: no CVA tenderness Cervical Spine: cervical ROM normal and No Cervical spine tenderness Thoracic/Lumbar Spine: thoraco-lumbar ROM normal, No pain with thoraco-lumbar ROM, No thoracic spinal tenderness and No lumbar spinal tenderness Extrem General: Yes normal to inspection, No edema and No calf tenderness Skin General: warm and dry. Normal skin color. Normal skin turgor Neuro General: patient oriented x3, gait normal and no focal neuro deficit Cranial nerves: Yes Equal, round and reactive pupils present Cognition (Neuro): normal cognition Gait exam (Neuro): Normal gait present Sensory Exam: No Sensory deficit (Neuro) Psych Appearance: grossly normal Affect: normal affect Attitude: cooperative Thought process: Normal thought process present Coding Level of Care Code Est Pt Level 4 (40094) Diagnoses High cholesterol E78.00 Anxiety and depression F41.9; F32.9 Additional Codes JOSE-7 Assessment Billing - JOSE-7 Assessment Tool: JOSE-7 Assessment 07274 ([id number]) PHQ-9 - 35728 - PHQ-9 Billing: Yes ([id number]) Assessment & Plan Assessment & Plan (1) High cholesterol: Code(s): E78.00 - Pure hypercholesterolemia, unspecified Category: Medical Plan: Recent triglycerides, total cholesterol, and LDL levels are elevated, 221, 218, and 135 respectively, HDL is slightly low, 39. He had diarrhea stopped taking atorvastatin for about a month and a half due to concern about potential adverse reaction. He resume taking the medication after the diarrhea subsided. He is unsure exactly what he stopped and restarted the medication. Instructed on importance of medication compliance and encouraged to take atorvastatin as prescribed. Advised to inform PCP before stopping any prescribed medication. Advised to limit foods high in saturated fat and avoid foods high in trans fat. Routine exercise encouraged. Fast for 10-12 hours, may drink water, and perform lipid panel blood work 2-3 days before next visit. Follow-up for telehealth visit for labs review in 6 weeks. Return sooner with symptoms or concerns. Verbalized understanding and agreed with the plan. (2) Anxiety and depression: Code(s): F41.9 - Anxiety disorder, unspecified; F32.9 - Major depressive disorder, single episode, unspecified Category: Medical Plan: She notes that for the past couple of month, he has been experiencing anxiousness with palpations and sweating to his forehead, arms/palms. He attributes his symtpoms to multiple triggers that involve planning, like coming to his doctor's appointment. PHQ-9 score revealed mild depression. JOSE-7 score is normal. Hydroxyzine 25 mg 3 times daily as needed ordered; advised to take as prescribed. Instructed on the risks, benefits, and potential adverse reactions of the medication. Continue to take fluoxetine and Abilify as prescribed. Routine exercise encouraged. Follow-up in 6 weeks or sooner with worsening or new symptoms. Verbalized understanding and agreed with the plan. Orders: Orders Lipid Panel 6 Weeks E78.00 - Pure hypercholesterolemia, unspecified Medications: New hydroxyzine HCl 25 mg PO TID PRN 90 tabs 3RF itching
[2024-12-21 15:03] VITALS: BP 132/82; PULSE 105; RESP 16; TEMP 36.6; O2SAT 97; BMI 33.0
[2024-12-21 15:23] VITALS: PULSE 96
== END 2024-12-21 15:29 | disposition home or self-care (01) ==
LOC: HO.HMCFM 14:53
PROVIDERS: PCP Nurse Practitioner Family; Visit Provider Nurse Practitioner Family
DX: E78.00 Pure hypercholesterolemia, unspecified (principal); F41.9 Anxiety disorder, unspecified; F32.9 Major depressive disorder, single episode, unspecified

== ENCOUNTER → 2024-12-21 14:52 | Outpatient (BNVA) | payer BC, SELFPAY | PROVIDERS: PCP Nurse Practitioner Family; Visit Provider Nurse Practitioner Family | DX: F32.9 Major depressive disorder, single episode, unspecified (principal); F41.9 Anxiety disorder, unspecified; E78.00 Pure hypercholesterolemia, unspecified | CPT/HCPCS: 96127 ==

== ENCOUNTER 2025-02-01 10:37 | Outpatient (REF) | payer BC, SELFPAY ==
[2025-02-01 13:48] LABS: Cholesterol 133 mg/dL (<200); HDL Cholesterol 39 mg/dL (>40); Triglycerides 233 mg/dL (<150)
== END 2025-02-01 10:38 | disposition home or self-care (01) ==
LOC: HO.HMGCLDS 10:37
PROVIDERS: PCP Nurse Practitioner Family; Visit Provider Nurse Practitioner Family
DX: E78.00 Pure hypercholesterolemia, unspecified (principal)
CPT/HCPCS: 36415; 80061

== ENCOUNTER 2025-02-02 13:34 | Outpatient (AMB) | payer BC, SELFPAY ==
--- NOTE | 2025-02-02 13:39 | MHC.PC.OV ---
Vital Signs 02/02/25 13:43 02/02/25 14:18 Height 5 ft 3 in Weight 190 lb 2 oz BMI 33.7 BP 141/76 H 110/80 Blood Pressure Location Lt brachial Lt brachial Position Sitting Sitting Respiration 16 Pulse 87 Pulse Source Pulse Oximeter Temp 97.7 F Temp Source Oral Pulse Oximetry (%) 95 Oxygen Delivery Method Room Air Intake Visit Reasons: 6 wks HLD, anxiety, depression Intake Note: patient here for 6wks follow up on HLD, Anxiety and Depression. Java Architect Required: No Allergies No Known Allergies Allergy (Verified 02/02/25 14:06) Medication List - Last Reconciled 02/02/25 by Kimberly Alfaro CNP albuterol sulfate 2.5 mg (3 mL) inhalation Q4-6H PRN 30 days aripiprazole (Abilify) 2 mg PO DAILY 90 days atorvastatin 40 mg PO BEDTIME clobetasol 0.05% 1 appl topical DAILY clobetasol 0.05% 1 appl topical DAILY cyclobenzaprine 10 mg PO TID 30 days fenofibrate 160 mg PO DAILY 30 days fluoxetine 40 mg PO DAILY hydroxyzine HCl 25 mg PO TID PRN lidocaine 5% (Hemorrhoidal Relief) 1 appl topical TID PRN melatonin 10 mg PO BEDTIME omega 7-tlw-sly-fish oil 1,000 (120-180) mg (Fish Oil) 1 cap PO TID 30 days Tobacco use date assessed: 02/02/25 Dental Screening Dental Screen Date: 02/02/25 Did you have a dental visit in the last 12 months?: No Did you have a dental problem in the last 6 months where you did not have access to dental care?: No Was dental information given to patient?: No HPI HPI Comments History of Present Illness Details 50-year-old male presents for hyperlipidemia, anxiety, and depression follow-up. He admits to taking his medications as prescribed without adverse reactions. He states that lately he has been eating like crap. He has been consuming significant amount of carbs, red meat, cheese, and fast foods. He walks routinely. He offers no complaints and denies acute symptoms at this time. [facility] Medical History Lichen simplex chronicus Pruritus ani Elevated cholesterol COPD (chronic obstructive pulmonary disease) Anxiety and depression ED (erectile dysfunction) Surgical History Hx of surgical procedure (~04/12/23) H/O umbilical hernia repair Hx of colonoscopy Family History (Updated 09/18/24 @ 15:51 by Whitley Mai MA) Mother Cancer Breast cancer Father No problems noted. 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 1. Little interest or pleasure in doing things: several days 2. Feeling down, depressed, or hopeless: several days 3. Trouble falling or staying asleep, or sleeping too much: several days 4. Feeling tired or having little energy: more than half the days 5. Poor appetite or overeating: more than half the days 6. Feeling bad about yourself - or that you are a failure or have let yourself or your family down: not at all 7. Trouble concentrating on things, such as reading the newspaper or watching television: not at all 8. Moving or speaking so slowly that other people could have noticed. Or the opposite - being so fidgety or restless that you have been moving around a lot more than usual: not at all 9. Thoughts that you would be better off or of hurting yourself in some way: not at all Total score: 7 Depression Screening Interpretation: Positive Depression Screening Follow-up: Existing condition and In treatment Depression Screening Done: Yes 14946 - PHQ-9 Billing: Yes Source: Developed by Drs. Andrea Stewart, Alana Cuello, Kenneth Lane and colleagues, with an educational parvez from [employer]. Thrive Questionnaire Date Thrive assessed: 06/08/24 I am a: Patient What is your living situation today?: I have a steady place to live Within the past 12 months, did the food you bought not last and you didn't have the money to get more?: Never true Within the past 12 months, did you worry whether your food would run out before you got money to buy more?: Never true Do you have trouble paying for medicines?: No Do you have trouble getting transportation to medical appointments?: No Do you have trouble paying your heating and electricity bill?: I choose not to answer this question Do you have trouble taking care of your child, family member or friend?: No Do you have trouble with day-to-day activities such as bathing, preparing meals, shopping, managing finances, etc.?: No Are you currently unemployed and looking for a job?: No Are you interested in more education?: No Please select the resources that you would like help with: Utilities Currently or been in a relationship where the following occur: No concerns reported THRIVE Score: 0 JOSE-7 AMB Questionnaire JOSE-7 Date JOSE - 7 assessed: 02/02/25 Feeling nervous, anxious, or on edge: 1 = Several days Not being able to stop or control worryin = Not at all Worrying too much about different things: 0 = Not at all Trouble relaxin = Several days Being so restless that it is hard to sit still: 0 = Not at all Becoming easily annoyed or irritable: 1 = Several days Feeling afraid as if something awful might happen: 0 = Not at all Total JOSE-7 score (0-4 normal; 5-9 mild; 10-14 moderate; 15-21 severe): 3 Source: Developed by Drs. Andrea Stewart, Alana Cuello, Kennteh Lane and colleagues, with an educational parvez from [employer]. JOSE-7 Assessment Billing JOSE-7 Assessment Tool: JOSE-7 Assessment 90840 Review of Systems Const Details: Const Denies chills, Denies fatigue, Denies fever(s), Denies headache(s) and Denies weakness ENT Denies dizziness and Denies headache(s) Card Denies chest pain, Denies lightheadedness, Denies dyspnea and Denies other (Palpitations) Resp Denies cough, Denies dyspnea, Denies wheezing and Denies other ( shortness of breath) GI Denies abdominal pain, Denies melena, Denies hematochezia, Denies change in bowel habits, Denies dyspepsia and Denies nausea Denies hematuria and Denies dysuria Musc Denies abnormal gait, Denies myalgias, Denies arthralgias, Denies numbness and Denies tingling Skin/Breast Denies rash, Denies unusual bruising and Denies wounds Neuro Denies abnormal gait, Denies dizziness, Denies headache(s), Denies memory loss, Denies numbness, Denies Sensory deficit (Neuro), Denies tingling and Denies weakness Psych Denies anxiety, Denies depression, Denies memory loss Endo Denies cold intolerance, Denies fatigue, Denies heat intolerance, Denies polydipsia and Denies polyuria Aller/Immun Denies wheezing Physical exam (Primary Care) Vital Signs: Last Vital Signs Temp 97.7 F 02/02/25 13:43 Pulse 87 02/02/25 13:43 Resp 16 02/02/25 13:43 BP 141/76 H 02/02/25 13:43 Pulse Ox 95 02/02/25 13:43 Oxygen Delivery Method Room Air 02/02/25 13:43 BMI result Body Mass Index 33.7 Tobacco/Smoking Status: Tobacco use Status Tobacco use date assessed 02/02/25 02/02/25 13:49 Patient Tobacco Use Status Former Tobacco user 02/02/25 13:49 e-Cigarette/Vaping Use Never Used 02/02/25 13:49 PHQ-9: PHQ-9 Score PHQ-9: Total score 7 02/02/25 13:49 Depression Screening Interpretation: Positive Depression Screening Follow-up: Existing condition and In treatment Thrive Assessment: Date of Thrive Assessment Date Thrive assessed 06/08/24 02/02/25 13:49 Currently or been in a relationship where the following occur: No concerns reported Const Other: General: no acute distress and well developed Nutritional Appearance: well nourished Orientation/consciousness: patient oriented x3 HENMT Head: Yes normocephalic and Yes atraumatic Eyes General: appearance normal, both eyes and all related structures Pupils: Equal, round and reactive pupils present EOM: EOMs intact bilaterally Resp Effort & Inspection: normal respiratory effort Auscultation: clear to auscultation bilaterally Cardio Rate: regular rate Rhythm: regular rhythm Heart sounds: S1 normal heart sound present, S2 normal heart sound present, no gallops, no murmurs and no rubs GI Palpation (GI): No Abdominal aortic bruit present, Soft to palpation, nontender, No hepatosplenomegaly present and No Rebound tenderness present Auscultation: normal bowel sounds General: Yes no CVA tenderness Back/Spine/Pelvis Back: no CVA tenderness Cervical Spine: cervical ROM normal and No Cervical spine tenderness Thoracic/Lumbar Spine: thoraco-lumbar ROM normal, No pain with thoraco-lumbar ROM, No thoracic spinal tenderness and No lumbar spinal tenderness Extrem General: Yes normal to inspection, No edema and No calf tenderness Skin General: warm and dry. Normal skin color. Normal skin turgor Neuro General: patient oriented x3, gait normal and no focal neuro deficit Cranial nerves: Yes Equal, round and reactive pupils present Cognition (Neuro): normal cognition Gait exam (Neuro): Normal gait present Sensory Exam: No Sensory deficit (Neuro) Psych Appearance: grossly normal Affect: normal affect Attitude: cooperative Thought process: Normal thought process present Coding Level of Care Code Est Pt Level 3 (55123) Diagnoses High cholesterol E78.00 Anxiety and depression F41.9; F32.9 Laboratory tests ordered as part of a complete physical exam (CPE) Z00.00 Additional Codes JOSE-7 Assessment Billing - JOSE-7 Assessment Tool: JOSE-7 Assessment 25891 ([id number]) PHQ-9 - 20327 - PHQ-9 Billing: Yes ([id number]) Assessment & Plan Assessment & Plan (1) High cholesterol: Code(s): E78.00 - Pure hypercholesterolemia, unspecified Category: Medical Plan: Recent triglycerides is elevated, 233, previous level was 221, total cholesterol and HDL levels are normal, 133 and 48 respectively, previous level were 218 and 135 respectively, HDL is slightly low, 39. He has been consuming significant amount of foods high in saturated and unsaturated fats recently. Continue current treatment regimen. Advised to limit foods high in saturated fat and avoid foods high in trans fat. Routine exercise encouraged. Will recheck lipid panel levels in 2 months. Perform lab work and follow-up for an extended physical exam and lab review in 1 month. Return sooner with symptoms or concerns. Verbalized understanding and agreed with the plan. (2) Anxiety and depression: Code(s): F41.9 - Anxiety disorder, unspecified; F32.9 - Major depressive disorder, single episode, unspecified Category: Medical Plan: Reports controlled mood. PHQ-9 score revealed mild depression. JOSE-7 score is normal. Continue current treatment regimen. Routine exercise encouraged. Follow-up with symptoms or concerns. Verbalized understanding and agreed with the plan. (3) Laboratory tests ordered as part of a complete physical exam (CPE): Code(s): Z00.00 - Encounter for general adult medical examination without abnormal findings Category: Medical Plan: Fasting labs ordered as part of a complete physical exam. Advised to fast for at least 10 hours before getting labs drawn. May drink water Verbalized understanding and agreed with treatment plan. Orders: Orders UA CC w/rflx Micro + Cult Today Z00.00 - Encounter for general adult medical examination without abnormal findings Microalbumin, Random (w Creat) Today Z00.00 - Encounter for general adult medical examination without abnormal findings Vitamin D 25-OH Total Today Z00.00 - Encounter for general adult medical examination without abnormal findings Comprehensive Makanda. Panel Fast Today Z00.00 - Encounter for general adult medical examination without abnormal findings
[2025-02-02 13:43] VITALS: BP 141/76; PULSE 87; RESP 16; TEMP 36.5; O2SAT 95; BMI 33.7
[2025-02-02 14:18] VITALS: BP 110/80
--- OUTSIDE RECORDS SUMMARY | 2025-02-02 17:36 | XMS_ITS | Data Portability ---
Author Organization [place] - [facility], Allergy Address [address] [address] Assessment Encounter Date Assessment Date Assessment LastModified [...] infection resolution. 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 He endorses recent upper respiratory infection. Examination demonstrates right TM with posterior perforation. Left TM is intact with tympanosclerosis, and tympanometry suggest middle ear fluid. External auditory canals are normal to inspection. Audiometric testing demonstrates moderate sloping to profound mixed hearing loss. Recommended auto insufflation of the ear 10 times daily and trial of intranasal fluticasone. He will follow-up in 3 months for reevaluation with tympanometry first. If the unilateral effusion has not resolved, we will consider a fiberoptic laryngoscopy and tube placement. mboni Not available 09/29/2024 14:59:34 01/04/2025 01/04/2025 49yo male with right-sided mixed hearing loss and left SNHL with bilateral amplification presents for reevaluation of left serous otitis media. Patient reports hearing is at baseline and denies acute concerns. Otologic examination demonstrates bilateral TMs with tympanosclerosis in patches. Middle ear spaces are well-aerated. Recommend repeat audiometric testing in one year, sooner with concerns or recurrent ear infection. [facility] Not available 01/04/2025 13:17:59 Plan of Treatment Reminders Order Date Submit Date Provider Last Modified By Organization Details Last Modified Time Details Appointments Hearing Test 2025 03:00P M Hearing Test Not available Not available Not available Establish ed 15 2025 03:30P M JOVON YOUNG PA-C Not available Not available Not available Lab None recorded. Referral None recorded. Procedures None recorded. Surgeries None recorded. Imaging None recorded. Medication Orders fluticaso ne propionat e 50 mcg/actua tion nasal spray,[facility] pension [address] [facility]/Pharmacy #[id number], [address] [place], [address], 09/29/2024 15:00:31 tobramyci n 0.3 %-dexamet hasone 0.1 % eye drops,[facility] 2024 025 [facility]/Pharmacy #[id number], [address] [place], [address], 09/09/2024 15:52:02 Patient TargetsNo targets recorded. Patient InstructionsNo instructions recorded. Reason for Referral None Reported. Results Created Date Observation Date Name Description Value Unit Range Abnormal Flag Note LastModifiedBy Organization Detail LastModifiedTime 10/01/19 25 audio gram No observ ation record ed. [facility] Not Available 2024 09:18:30 Result Notes None recorded. Problems Name Problem SNOMED Code Status Onset Date Resolution Date Notes Provider Name and Address Organization Details Recorded Time Marginal perforati on of tympanic membrane 53754533 Active 2023 Other marginal perforati ons of tympanic membrane, right ear; Note: Date Diagnosed : 07/17/2023 3:12 PM (H72.2X1) Not Available [facility] 02:41:29 Mixed conductiv e and sensorine ural hearing loss of right ear 58270941314 105 Active 2023 Mixed conductiv e and sensorine ural hearing loss, unilatera l, right ear, with unrestric ehsan hearing on the contralat eral side; Note: Date Diagnosed : 07/17/2023 3:12 PM (H90.71) JOVON YOUNG PA-C [address], [place], [place], [address] , [place] - [facility] 5 13:18:05 Sensorine ural hearing loss in left ear 94400373724 109 Active 2023 Sensorine ural hearing loss, unilatera l, left ear, with restricte d hearing on the contralat eral side; Note: Date Diagnosed : 07/17/2023 3:13 PM (H90.A22) JOVON YOUNG PA-C [address], [place], [address] , [place] - [facility] 5 13:18:05 Otorrhea of right ear 38959548552 91168 Active 2024 JOVON YOUNG PA-C [address], [place], [place], [address] , [place] - [facility] [place] 5 15:51:07 Mixed conductiv e and sensorine ural hearing loss, bilateral 641808220 Active 2024 MICHELE MULLER, AUD [address], [place], [place], [address] , [facility] - [facility] 5 13:30:00 Serous otitis media of left ear 73017802602 89946 Active 2024 JOVON YOUNG PA-C [address], [place], [place], [address] , [place] - [facility] 5 14:59:09 Problem Notes None recorded. Procedures Surgical History Date Name Laterality Status Provider Name and Address Organization Details Recorded Time Cerumen removal without microscope left completed JOVON YOUNG PA-C [address], [place], [address], [place] - [facility] 01/04/2025 13:13:25 Comp Audio with Tymps - 07993 & 61839 completed MICHELE MULLER, [facility] [address] [facility], [place], [address], [facility] - [facility] 09/29/2024 13:29:43 Imaging Results None recorded. Procedure Notes None recorded. Medical Equipment None Reported. Allergies No known drug allergies Medications Name Sig Start Date Stop Date Status Note LastModified by Organization Details LastModified Time fluoxetin e 40 mg capsule TAKE 1 CAPSULE BY MOUTH EVERY DAY active Not Available Not Available No t Available atorvasta tin 40 mg tablet TAKE 1 TABLET BY MOUTH EVERY DAY AT BEDTIME active Not Available Not Available No t Available clobetaso l 0.05 % topical cream APPLY TOPCIALL Y ONCE DAILY active Not Available Not Available No t Available hydroxyzi ne HCl 25 mg tablet TAKE 1 TABLET BY MOUTH THREE TIMES A DAY NEEDED FOR ITHCING active Not Available Not Available No t Available fluticaso ne propionat e 50 mcg/actua tion nasal spray,[facility] pension SPRAY 2 SPRAYS EVERY DAY BY INTRANAS AL ROUTE IN THE MORNING FOR 42 DAYS, FOR LEFT MIDDLE EAR FLUID. active Not Available Not Available No t Available tobramyci n 0.3 %-dexamet hasone 0.1 % eye drops,[facility] pension INSTILL 4 DROPS INTO RIGHT EAR TWICE DAILY FOR 10 DAYS active Not Available Not Available No t Available omega-3 acid ethyl esters 1 gram capsule TAKE 1 CAPSULE BY MOUTH THREE TIMES A DAY FOR 30 DAYS 09/29 completed Not Available Not Available Not Available fenofibra te 160 mg tablet TAKE 1 TABLET BY MOUTH EVERY DAY FOR 30 DAYS active Not Available Not Available No t Available aripipraz ole 2 mg tablet TAKE 1 TABLET BY MOUTH DAILY. active Not Available Not Available No t Available omega-3 fatty acids-fis h oil 300 mg-1,000 mg capsule TAKE 1 CAPSULE BY MOUTH THREE TIMES A DAY active Not Available Not Available No t Available fenofibra te 120 mg tablet TAKE 1 TABLET BY MOUTH EVERY DAY FOR 30 DAYS 09/29 completed Not Available Not Available Not Available fenofibra te 54 mg tablet 09/29 completed Medicati on ID: [id number] B rand Name: fenofibr ate Send Method: E-Prescr ibed Sub s Allowed: subs OK Medic ationGen ericName : fenofibr ate Not Available Not Available Not Available Calmosept ine 0.44 %-20.6 % topical ointment USE 1 APPLICAT ION TOPICALL Y 4 TIMES A DAY NEEDED FOR PERIANAL ITCHING active Not Available Not Available No t Available Vitals Date Recorded Body height Body mass index (BMI) Body weight Provider Name and Address Organization Details Last Updated DateTime 09/09/2024 157.48 cm 32.9 kg/m2 19488.63 g Gale Chapman [place] - [facility] 09/09/2024 15:29:09 Date Recorded Body height Body mass index (BMI) Body weight Provider Name and Address Organization Details Last Updated DateTime 09/29/2024 160.02 cm 31.9 kg/m2 62793.63 g Gale Chapman [place] - [facility] 09/29/2024 13:38:51 Date Recorded Body height Body mass index (BMI) Body weight Provider Name and Address Organization Details Last Updated DateTime 01/04/2025 160.02 cm 31.9 kg/m2 56217.63 g Yu Weeks [place] - [facility] 01/04/2025 12:51:34 Social History Question Answer Notes LastModified by Organizat ion Details LastModified Time Tobacco Smoking Status Former Smoker Gale whitfield [place] - [facility] 09/09/2024 15:29:23 What Type Of Dampener Operator Do You Use? None Information not available [...] Disorder N Anesthesia Complications N Heart Attack (ID) N Other Skin Condition N Diabetes N [...] Diagnosis SNOMED-CT Code Diagnosis ICD10 Code Diagnosis IMO Codes Diagnosis Note [id number] JOVON YOUNG PA-C [facility] [address] [address] 09/09/2024 15:00:28 09/09/2024 15:50:15 Otorrhea of right ear 8846461761 916801 H92.11 0658413 Mixed cond uctive and sensorineural hearing loss of right ear 9497255395 9105 H90.71 Sensorineu ral hearing loss in left ear 5672237534 9109 H90.A22 [id number] JOVON YOUNG PA-C [facility] [address] [address] 09/29/2024 13:01:59 09/29/2024 14:02:28 Mixed conductive and sensorineural hearing loss, bilateral 571016129 H90.6 [id number] Audiologic al evaluation results: 09/29/2024 Right ear: Moderately -severe flat mixed hearing loss with excellent word recognitio n. Left ear: Moderate sloping to profound mixed hearing loss with excellent word recognitio n. Tympanomet ry: Right Ear:Type B with large volume Left Ear:Type B Marginal p erforation of tympanic membrane 24444786 H72.2X1 Serous tiana tis media of left ear 2809092579 212101 H65.92 15389471 [id number] JOVON YOUNG PA-C [facility] [address] [place] [address] 01/04/2025 12:38:24 01/04/2025 13:09:14 Serous otitis media of left ear 6759402857 935935 H65.92 70858630 Mixed cond uctive and sensorineural hearing loss of right ear 5193902957 9105 H90.71 Sensorineu ral hearing loss in left ear 0952173105 9109 H90.A22 Health Concerns Section Related Observation LastModified by Organization Detai ls LastModified Time None Recorded Concern Status LastModified by Organization Details LastModified Time None Recorded Advance Directives Directive None Recorded Payers Insurance Date Sequence Insurance Name Policy Number Policy Skinner Covered Member ID Skinner Member ID Guarantor Name 01/04/2025 1 [facility] [id number] Mark Luther [id number] Mark Luther Notes Date Note Type Note Provider Name and Address Organization Details Recorded Time 09/09/2024 text/html ROS as noted in the HPI 49yo male with 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 Known right TM perforation. Reports no change in hearing. Endorses right-sided ear drainage for a couple months. He has not been wearing his right hearing aid as a result. Denies ear pain. 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 He trialed topical TobraDex for 10 days. Denies ear pain or drainage. He recently had an upper respiratory infection, with subsequent left-sided muffled hearing. He has not been wearing his right amplification due to acute infection. 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 He trialed intranasal fluticasone. Denies hearing concerns, ear pain, or drainage today. He has a longstanding history of recurrent ear infections s/p myringotomy tubes. NATASHA COON MD [address] [address],[place] [address], [place], [address], [facility] - [facility] 01/04/2025 16:40:29
== END 2025-02-02 14:20 | disposition home or self-care (01) ==
LOC: HO.HMCFM 13:35
PROVIDERS: PCP Nurse Practitioner Family; Visit Provider Nurse Practitioner Family
DX: E78.00 Pure hypercholesterolemia, unspecified (principal); F41.9 Anxiety disorder, unspecified; F32.9 Major depressive disorder, single episode, unspecified; Z00.00 Encounter for general adult medical examination without abnormal findings

== ENCOUNTER → 2025-02-02 13:34 | Outpatient (BNVA) | payer BC, SELFPAY | PROVIDERS: PCP Nurse Practitioner Family; Visit Provider Nurse Practitioner Family | DX: Z00.00 Encounter for general adult medical examination without abnormal findings (principal); F41.9 Anxiety disorder, unspecified; F32.A Depression, unspecified; E78.00 Pure hypercholesterolemia, unspecified | CPT/HCPCS: 96127 ==

== ENCOUNTER 2025-03-06 09:25 | Outpatient (REF) | payer BC, SELFPAY ==
--- OUTSIDE RECORDS SUMMARY | 2025-03-06 09:28 | XMS_ITS | Data Portability ---
Author Organization [place] - [facility], Allergy Address [address] [address] Assessment Encounter Date Assessment Date Assessment LastModified [...] sooner with concerns or recurrent ear infection. [facility] Not available 01/04/2025 13:17:59 Plan of Treatment [...] ne propionat e 50 mcg/actua tion nasal spray,[facility] pension 2024 025 [facility]/Pharmacy #[id number], [address] [place], [address], 09/29/2024 15:00:31 tobramyci n 0.3 %-dexamet hasone 0.1 % eye drops,[facility] 025 [facility]/Pharmacy #[id number], [address] [place], [address], 09/09/2024 15:52:02 Patient TargetsNo targets recorded. Patient [...] Time Marginal perforati on of tympanic membrane 72734836 Active 2023 Other marginal perforati ons of tympanic membrane, right ear; Note: Date Diagnosed : 07/17/2023 3:12 PM (H72.2X1) Not Available [facility] 02:41:29 Mixed conductiv e and sensorine ural hearing loss of right ear 26036434842 105 Active 2023 Mixed conductiv e and sensorine ural hearing loss, unilatera l, right ear, with unrestric ehsan hearing on the contralat eral side; Note: Date Diagnosed : 07/17/2023 3:12 PM (H90.71) JOVON YOUNG PA-C [address], [place], [place], [address] , [place] - [facility] 5 13:18:05 Sensorine ural hearing loss in left ear 03074244036 109 Active 2023 Sensorine ural hearing loss, unilatera l, left ear, with restricte d hearing on the contralat eral side; Note: Date Diagnosed : 07/17/2023 3:13 PM (H90.A22) JOVON YOUNG PA-C [address], [place], [address] , [place] - [facility] 5 13:18:05 Otorrhea of right ear 76063523288 62058 Active 2024 JOVON YOUNG PA-C [address], [place], [place], [address] , [place] - [facility] [place] 5 15:51:07 Mixed conductiv e and sensorine ural hearing loss, bilateral 441600373 Active 2024 MICHELE MULLER, AUD [address], [place], [place], [address] , [facility] - [facility] [place] 5 13:30:00 Serous otitis media of left ear 47701536235 58733 Active 2024 JOVON YOUNG PA-C [address], [place], [place], [address] , [place] - [facility] [place] 5 14:59:09 Problem Notes None recorded. Procedures Surgical History Date Name Laterality Status Provider Name and Address Organization Details Recorded Time Cerumen removal without microscope left completed JOVON YOUNG PA-C [address], [place], [address], [place] - [facility] [place] 01/04/2025 13:13:25 Comp Audio with Tymps - 65211 & 47115 completed MICHELE MULLER, [facility] 100 [facility], [place], [address], [facility] - [facility] [place] 09/29/2024 13:29:43 Imaging Results None recorded. Procedure [...] mg tablet 09/29 completed Medicati on ID: [id number] B rand Name: fenofibr ate Send Method: [...] Updated DateTime 09/09/2024 157.48 cm 32.9 kg/m2 93270.63 g Gale Chapman [place] - [facility] 09/09/2024 15:29:09 Date Recorded Body height Body mass index (BMI) Body weight Provider Name and Address Organization Details Last Updated DateTime 09/29/2024 160.02 cm 31.9 kg/m2 67059.63 g Gale Chapman [place] - [facility] 09/29/2024 13:38:51 Date Recorded Body height Body mass index (BMI) Body weight Provider Name and Address Organization Details Last Updated DateTime 01/04/2025 160.02 cm 31.9 kg/m2 02246.63 g Yu Weeks [place] - [facility] 01/04/2025 12:51:34 Social History Question Answer Notes LastModified by Organizat ion Details LastModified Time Tobacco Smoking Status Former Smoker Gale whitfield [place] - [facility] 09/09/2024 15:29:23 What Type Of Bacon Skin Lifter Do You Use? None Information not available [...] Migraines Y Thyroid Problems N Glaucoma N Developmental Delay N Depression Y COPD Y Nasal or Sinus Problems N Anemia Y Immune System Disorder N Anesthesia Complications N Heart Attack ([place]) N Other Skin Condition N Diabetes N Rhinitis N Bleeding Disorder N Food Allergy N Hearing Loss Y Arthritis N Hyperlipidemia N Cancer N Stroke N Dementia N Nasal polyps N Asthma N Sleep Disorder N High Cholesterol Y GERD/Reflux Y Liver Disease N Headaches Y Fibromyalgia N Hypertension N Speech Delay N Kidney Disease N Past Encounters Encounter ID Performer Location Encounter Start Date Encounter Closed Date Diagnosis/Indication Diagnosis SNOMED-CT Code Diagnosis ICD10 Code Diagnosis IMO Codes Diagnosis Note [id number] JOVON YOUNG PA-C [facility] [address] [address] 09/09/2024 15:00:28 09/09/2024 15:50:15 Otorrhea of right ear [id number] 177386 H92.11 2466786 Mixed cond uctive and sensorineural hearing loss of right ear 9739888362 9105 H90.71 Sensorineu ral hearing loss in left ear 1010622384 9109 H90.A22 [id number] JOVON YOUNG PA-C [facility] [address] [address] 09/29/2024 13:01:59 09/29/2024 14:02:28 Mixed conductive and sensorineural hearing loss, bilateral 518612970 H90.6 [id number] Audiologic al evaluation results: 09/29/2024 Right ear: Moderately -severe flat mixed hearing loss with excellent word recognitio n. Left ear: Moderate sloping to profound mixed hearing loss with excellent word recognitio n. Tympanomet ry: Right Ear:Type B with large volume Left Ear:Type B Marginal p erforation of tympanic membrane 78272105 H72.2X1 Serous tiana tis media of left ear 4582371485 652006 H65.92 [id number] JOVON YOUNG PA-C [facility] [address] [place] [address] 01/04/2025 12:38:24 01/04/2025 13:09:14 Serous otitis media of left ear 7528824180 439522 H65.92 35679361 Mixed cond uctive and sensorineural hearing loss of right ear 2808532231 9105 H90.71 Sensorineu ral hearing loss in left ear 0457851992 9109 H90.A22 Health Concerns Section Related Observation LastModified by Organization Detai ls LastModified Time None Recorded Concern Status LastModified by Organization Details LastModified Time None Recorded Advance Directives Directive None Recorded Payers Insurance Date Sequence Insurance Name Policy Number Policy Skinner Covered Member ID Skinner Member ID Guarantor Name 01/04/2025 1 [facility] [id number] Mark Luther [id number] Mark Luther Notes Date Note Type [...] result. Denies ear pain. ROSALBA KELSEY MD [address] [place] [address], [place], [address], [facility] - [facility] 09/09/2024 17:16:17 09/29/2024 text/html ROS as noted [...] acute infection. JAY JAY MORROW MD 100 [facility],[place] [address], [place], [address], [facility] - [facility] 10/05/2024 07:54:40 01/04/2025 text/html ROS as noted in the HPI 49yo male with right mixed loss and left SNHL with bilateral amplification presents for reevaluation of left serous effusion. He trialed intranasal fluticasone. Denies hearing concerns, ear pain, or drainage today. He has a longstanding history of recurrent ear infections s/p myringotomy tubes. NATASHA COON MD [address] [place] [address],[place] [address], [place], [address], [facility] - [facility] 01/04/2025 16:40:29
--- OUTSIDE RECORDS SUMMARY | 2025-03-06 09:28 | XMS_ITS | Continuity of Care Document ---
Author Organization [place] - [facility], [facility] Address [address] [place] [address] Assessment Encounter Date Assessment Date Assessment LastModified by Organization Details LastModified Time 01/04/2025 01/04/2025 49yo male with right-sided mixed hearing loss and left SNHL with bilateral amplification presents for reevaluation of left serous otitis media. Patient reports hearing is at baseline and denies acute concerns. Otologic examination demonstrates bilateral TMs with tympanosclerosis in patches. Middle ear spaces are well-aerated. Recommend repeat audiometric testing in one year, sooner with concerns or recurrent ear infection. [email or web address] Not available 01/04/2025 13:17:59 Plan of Treatment [...] None recorded. Imaging None recorded. Medication Orders None recorded. Patient TargetsNo targets recorded. Patient InstructionsNo instructions recorded. Reason for Referral None Reported. Problems Name Problem SNOMED Code Status Onset Date Resolution Date Notes Provider Name and Address Organization Details Recorded Time Marginal perforati on of tympanic membrane 24663815 Active 2023 Other marginal perforati ons of tympanic membrane, right ear; Note: Date Diagnosed : 07/17/2023 3:12 PM (H72.2X1) Not Available [facility] 02:41:29 Mixed conductiv e and sensorine ural hearing loss of right ear 57564074416 105 Active 2023 Mixed conductiv e and sensorine ural hearing loss, unilatera l, right ear, with unrestric ehsan hearing on the contralat eral side; Note: Date Diagnosed : 07/17/2023 3:12 PM (H90.71) JOVON YOUNG PA-C [address], [place], [address] , [place] - [facility] [place] 5 13:18:05 Sensorine ural hearing loss in left ear 50524086588 109 Active 2023 Sensorine ural hearing loss, unilatera l, left ear, with restricte d hearing on the contralat eral side; Note: Date Diagnosed : 07/17/2023 3:13 PM (H90.A22) JOVON YOUNG PA-C [address] [facility], [place], [address] , [place] - [facility] 5 13:18:05 Otorrhea of right ear 66667492257 66639 Active 2024 JOVON YOUNG PA-C [address], [place], [address] , [place] - [facility] [place] 5 15:51:07 Mixed conductiv e and sensorine ural hearing loss, bilateral 187650908 Active 2024 MICHELE MULLER, AUD [address] [facility], [place], [place], [address] , [facility] - [facility] [place] 5 13:30:00 Serous otitis media of left ear 31345800836 43335 Active 2024 JOVON YOUNG PA-C [address], [place], [address] , [facility] - [facility] [place] 5 14:59:09 Problem Notes None recorded. Procedures Surgical History Date Name Laterality Status Provider Name and Address Organization Details Recorded Time Cerumen removal without microscope left completed JOVON YOUNG PA-C [address], [place], [address], [facility] - [facility] [place] 01/04/2025 13:13:25 Comp Audio with Tymps - 62352 & 35261 completed MICHELE MULLER, AUD 100 [facility], [place], [address], [facility] - [facility] 09/29/2024 13:29:43 Imaging Results None recorded. Procedure [...] mg tablet 09/29 completed Medicati on ID: [id number] B rand Name: fenofibr ate Send Method: [...] Updated DateTime 01/04/2025 160.02 cm 31.9 kg/m2 71052.63 g Yu Weeks [place] - [facility] 01/04/2025 12:51:34 Social History Question Answer Notes LastModified by Organizat ion Details LastModified Time Tobacco Smoking Status Former Smoker Gale whitfield [place] - [facility] 09/09/2024 15:29:23 What Type Of Television Cabinet Finisher Do You Use? None Information not available [...] Emphysema N Migraines Y Thyroid Problems N Depression Y COPD Y Developmental Delay N Glaucoma N Nasal or Sinus Problems N Anemia Y Immune System Disorder N Anesthesia Complications N Heart Attack ([place]) N Other Skin Condition N Diabetes N [...] ICD10 Code Diagnosis IMO Codes Diagnosis Note [id number] JOVON YOUNG PA-C [facility] [address] [address] 01/04/2025 12:38:24 01/04/2025 13:09:14 Serous otitis media of left ear [id number] 384348 H65.92 00287716 Mixed cond uctive and sensorineural hearing loss of right ear 0095312601 9105 H90.71 Sensorineu ral hearing loss in left ear 2136321544 9109 H90.A22 Health Concerns Section Related Observation LastModified by Organization Detai ls LastModified Time None Recorded Concern Status LastModified by Organization Details LastModified Time None Recorded Payers Encounter Date Sequence Insurance Name Policy Number Policy Skinner Covered Member ID Skinner Member ID Guarantor Name 01/04/2025 1 [facility] [id number] Mark Luther [id number] Mark Luther Notes Date Note Type Note Provider Name and Address Organization Details Recorded Time 01/04/2025 text/html ROS as noted in the HPI 49yo male with right mixed loss and left SNHL with bilateral amplification presents for reevaluation of left serous effusion. He trialed intranasal fluticasone. Denies hearing concerns, ear pain, or drainage today. He has a longstanding history of recurrent ear infections s/p myringotomy tubes. NATASHA COON MD [address] [place] [address], [place], [address], [facility] - [facility] 01/04/2025 16:40:29
[2025-03-06 11:37] LABS: Appearance Urine Clear; Glucose Urine UA Negative (Negative); PH 5.5 (5.0-9.0); Specific Gravity - Urine >= 1.030 (1.005-1.025)
[2025-03-06 11:54] LABS: Alanine Aminotransferase 34 U/L (0-40); Albumin Level 4.3 g/dL (3.5-5.0); Alkaline Phosphatase 70 U/L (39-117); Anion Gap 13 (12-20); Aspartate Amino Transferase 27 U/L (5-37); Blood Urea Nitrogen 19 mg/dL (9-16); Calcium 8.9 mg/dL (8.4-10.2); Carbon Dioxide 23 mmol/L (22-29); Chloride 112 mmol/L (96-108); Estimated Glomerular Filt Rate > 60; Potassium 3.9 mmol/L (3.3-5.1); Sodium 144 mmol/L (135-145); Total Protein 7.3 g/dL (6.5-8.0)
[2025-03-06 12:15] LABS: Microalbum/Creatinine Ratio Ur 4.1 ug/mg cr (<30)
== END 2025-03-06 09:26 | disposition home or self-care (01) ==
LOC: HO.HMGCLDS 09:25
PROVIDERS: PCP Nurse Practitioner Family; Visit Provider Nurse Practitioner Family
DX: Z00.00 Encounter for general adult medical examination without abnormal findings (principal); Z13.29 Encounter for screening for other suspected endocrine disorder
CPT/HCPCS: 36415; 80053; 81003; 82043; 82306; 82570

== ENCOUNTER 2025-03-23 13:38 | Outpatient (AMB) | payer BC, SELFPAY ==
--- NOTE | 2025-03-23 13:44 | A.OFFPC_ITS ---
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 Allergies No Known Allergies Allergy (Verified 03/23/25 14:03) Medication List - Last Reconciled 03/23/25 by Kimberly Alfaro CNP albuterol sulfate 2.5 mg (3 mL) inhalation Q4-6H PRN 30 days aripiprazole (Abilify) 2 mg PO DAILY 90 days atorvastatin 40 mg PO BEDTIME cholecalciferol (vitamin D3) 50 mcg PO DAILY 30 days clobetasol 0.05% 1 appl topical DAILY cyclobenzaprine 10 mg PO TID 30 days fenofibrate 160 mg PO DAILY 30 days fluoxetine 40 mg PO DAILY hydroxyzine HCl 25 mg PO TID PRN lidocaine 5% (Hemorrhoidal Relief) 1 appl topical TID PRN melatonin 10 mg PO BEDTIME omega 0-ocq-yoc-fish oil 1,000 (120-180) mg (Fish Oil) 1 cap PO TID 30 days Tobacco use date assessed: 03/23/25 Dental Screening Dental Screen Date: 02/02/25 HPI HPI Comments History of Present Illness Details 50-year-old male presents for an extende d physical exam and review of recent lab results. He admits to taking his medications as prescribed without adverse reactions. She notes that her mood is generally well controlled. He is followed by [facility] research & insights executive/dietitian but has not been seen since July 2024. Acute issue(s) - None Past Medical History - Hyperlipidemia, myopia, COPD, anemia, obesity, anal fissure, anxiety, and depression Social History - Former smoker, quit 15 years ago. Does not vape. Does not drink alcohol. Denies recreational drug use - Has been making unhealthy dietary morin mitchell including high carbs and salt. He is active but does not exercise. Generally sleep well Health maintenance - Last eye exam was in 10/2024 with [facility] - Last dental visit was a few years ago; encouraged to schedule an appointment with his dentist for routine dental care. - Last Tdap vaccine was on 09/02/2022 - Has not been vaccinated for the flu ; receives vaccination today - Last colonoscopy was in 01/10/2022: Jd jerry polyps Specialists - [facility] insights executive/dietitian [facility] Medical History Lichen simplex chronicus Pruritus ani Elevated cholesterol COPD (chronic obstructive pulmonary disease) Anxiety and depression ED (erectile dysfunction) Surgical History Hx of surgical procedure (~04/12/23) H/O umbilical hernia repair Hx of colonoscopy Family History (Updated 09/18/24 @ 15:51 by Whitley Mai MA) Mother Cancer Breast cancer Father No problems noted. 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 1. Little interest or pleasure in doing things: several days 2. Feeling down, depressed, or hopeless: several days 3. Trouble falling or staying asleep, or sleeping too much: several days 4. Feeling tired or having little energy: several days 5. Poor appetite or overeating: several days 6. Feeling bad about yourself - or that you are a failure or have let yourself or your family down: not at all 7. Trouble concentrating on things, such as reading the newspaper or watching television: not at all 8. Moving or speaking so slowly that other people could have noticed. Or the opposite - being so fidgety or restless that you have been moving around a lot more than usual: not at all 9. Thoughts that you would be better off or of hurting yourself in some way: not at all Total score: 5 Depression Screening Interpretation: Positive Depression Screening Follow-up: Existing condition and In treatment Depression Screening Done: Yes 58748 - PHQ-9 Billing: Yes Source: Developed by Drs. Andrea Stewart, Alana Cuello, Kenneth Lane and colleagues, with an educational parvez from [employer]. Thrive Questionnaire Date Thrive assessed: 03/23/25 I am a: Patient What is your living situation today?: I have a steady place to live Within the past 12 months, did the food you bought not last and you didn't have the money to get more?: Never true Within the past 12 months, did you worry whether your food would run out before you got money to buy more?: Never true Do you have trouble paying for medicines?: No Do you have trouble getting transportation to medical appointments?: No Do you have trouble paying your heating and electricity bill?: I choose not to answer this question Do you have trouble taking care of your child, family member or friend?: No Do you have trouble with day-to-day activities such as bathing, preparing meals, shopping, managing finances, etc.?: No Are you currently unemployed and looking for a job?: No Are you interested in more education?: No Please select the resources that you would like help with: Utilities Currently or been in a relationship where the following occur: No concerns reported THRIVE Score: 0 AUDIT C Alcohol Use Questionnaire (AUDIT-C) 1. How often do you have a drink containing alcohol?: Never 3. How often do you have six or more drinks on one occasion?: Never Total Score: 0 Score Reviewed/Action Taken: Yes JOSE-7 AMB Questionnaire JOSE-7 Date JOSE - 7 assessed: 03/23/25 Feeling nervous, anxious, or on edge: 1 = Several days Not being able to stop or control worryin = Not at all Worrying too much about different things: 0 = Not at all Trouble relaxin = Several days Being so restless that it is hard to sit still: 0 = Not at all Becoming easily annoyed or irritable: 0 = Not at all Feeling afraid as if something awful might happen: 0 = Not at all Total JOSE-7 score (0-4 normal; 5-9 mild; 10-14 moderate; 15-21 severe): 2 Source: Developed by Drs. Andrea Stewart, Alana Cuello, Kenneth Lane and colleagues, with an educational parvez from [employer]. JOSE-7 Assessment Billing JOSE-7 Assessment Tool: JOSE-7 Assessment 28250 ACT Questionnaire In the past 4 weeks, how much of the time did your asthma keep you from getting as much done at work, school or at home?: None of the time During the past 4 weeks, how often have you had shortness of breath?: 1-2 times a week During the past 4 weeks, how often did your asthma symptoms wake you up at night or earlier than usual in the morning?: Once or twice per week During the past 4 weeks, how often have you had to use your rescue inhaler or nebulizer medication?: Once a week or less How would you rate your asthma control during the past 4 weeks?: Completely controlled ACT Interpretation: Positive Score: 22 Review of Systems Const Details: Denies chills, Denies fatigue, Denies fever(s), Denies headache(s) and Denies weakness HEENT Denies change in vision, Denies dizziness, Denies headache(s), Denies hearing loss, Denies nasal congestion, Denies sinus pain, Denies sinus pressure and Denies sore throat Card Denies chest pain, Denies lightheadedness, Denies dyspnea and Denies other (palpitations) Resp Denies cough, Denies dyspnea and Denies wheezing GI Denies abdominal pain, Denies melena, Denies hematochezia, Denies change in bowel habits, Denies dyspepsia and Denies nausea Denies hematuria and Denies dysuria Musc Denies abnormal gait, Denies myalgias, Denies arthralgias, Denies numbness and Denies tingling Skin/Breast Denies rash, Denies unusual bruising and Denies wounds Neuro Denies abnormal gait, Denies dizziness, Denies headache(s), Denies memory loss, Denies numbness, Denies Sensory deficit (Neuro), Denies tingling and Denies weakness Psych Denies anxiety, Denies depression and Denies memory loss Endo Denies cold intolerance, Denies fatigue, Denies heat intolerance, Denies polydipsia and Denies polyuria Adarsh/Lymph Denies easy bleeding and Denies easy bruising Aller/Immun Denies wheezing Physical exam (Primary Care) Vital Signs: Last Vital Signs Temp 98.1 F 03/23/25 13:52 Pulse 73 03/23/25 13:52 Resp 18 03/23/25 13:52 BP 138/88 03/23/25 14:11 Pulse Ox 97 03/23/25 13:52 Oxygen Delivery Method Room Air 03/23/25 13:52 BMI result Body Mass Index 34.3 Tobacco/Smoking Status: Tobacco use Status Tobacco use date assessed 03/23/25 03/23/25 13:59 Patient Tobacco Use Status Former Tobacco user 03/23/25 13:44 e-Cigarette/Vaping Use Never Used 03/23/25 13:44 PHQ-9: PHQ-9 Score PHQ-9: Total score 5 03/23/25 14:04 Depression Screening Interpretation: Positive Depression Screening Follow-up: Existing condition and In treatment Thrive Assessment: Date of Thrive Assessment Date Thrive assessed 03/23/25 03/23/25 13:59 Currently or been in a relationship where the following occur: No concerns reported Const Other: General: no acute distress, well developed, alert and awake Nutritional Appearance: well nourished Orientation/consciousness: patient oriented x3 HENMT Head: Yes normocephalic and Yes atraumatic Ears: hearing grossly normal bilaterally and TM's normal bilaterally General nose exam: Normal external nose present and Normal nares present Mouth: Normal oral and palatal mucosa present and moist mucous membranes Teeth and gingiva: dentition normal Throat: Yes oropharynx normal Eyes Pupils: Equal, round and reactive pupils present and Pupil accommodation reflex normal EOM: EOMs intact bilaterally Neck Neck: Yes normal visual inspection, Yes no lymphadenopathy and Yes trachea midline Thyroid: Thyroid normal Carotids: no bruits Lymphatic: no lymphadenopathy noted Chest Chest palpation & inspection: normal inspection of the chest Resp Effort & Inspection: normal respiratory effort Auscultation: clear to auscultation bilaterally Cardio Rate: regular rate Rhythm: regular rhythm Heart sounds: S1 normal heart sound present, S2 normal heart sound present, no gallops, no murmurs and no rubs Bruits: no abdominal aortic bruits and no carotid bruits GI Palpation (GI): No Abdominal aortic bruit present, Soft to palpation, nontender, No hepatosplenomegaly present and No Rebound tenderness present Auscultation: normal bowel sounds General: Yes no CVA tenderness Back/Spine/Pelvis Back: no CVA tenderness Cervical Spine: cervical ROM normal and No Cervical spine tenderness Thoracic/Lumbar Spine: thoraco-lumbar ROM normal, No pain with thoraco-lumbar ROM, No thoracic spinal tenderness and No lumbar spinal tenderness Skin General: warm and dry. Normal skin color. Normal skin turgor Lesions: no lesions Rashes: no rashes Trauma: no lacerations or abrasions Wounds: no wounds Nails: normal Neuro General: patient oriented x3, gait normal and CN's II-XI intact bilaterally Cranial nerves: Yes Equal, round and reactive pupils present Cognition (Neuro): normal cognition Gait exam (Neuro): Normal gait present Motor exam (neuro): 5/5 motor strength present throughout Sensory Exam: No Sensory deficit (Neuro) Deep tendon reflexes (DTR's): Right patellar reflex intensity grade: 2+ and Left patellar reflex intensity grade: 2+ Extrem General: Yes normal to inspection, No edema and No calf tenderness Psych Appearance: grossly normal Affect: normal affect Attitude: cooperative Thought process: Normal thought process present Office Procedures Flu Questionnaire Does the patient have a severe egg allergy?: No Does the patient have severe life threatening allergies?: No Does the patient have a fever or illness today?: No Has the patient ever had Guillain-[place] Syndrome?: No Has the patient ever had any past reaction to a flu shot?: No Immunizations Fluarix [id number] (PF) 45 mcg (15 mcg x 3)/0.5 mL IM syringe Performing Provider: Kimberly Alfaro CNP Performing Location: [facility] Administered by: Rach Pike RN on 03/23/25 14:34 Dose Route Admin Location Dispensed Lot Number Expiration Date [facility] Supervisor Denture Department 0.5 mL IM Right Deltoid 0.5 mL [id number] 10/05/25 05622-154-62 [employer]SMITH[employer] VIS Given Date VIS Provided VIS Publication Date 03/23/25 Single Vaccine 24 Eligibility Eligibility Date Funding Source Not [facility] Eligible 03/23/25 Private Coding Level of Care Code Est Pt Level 3 (40806) Est Pt Prev Care 40-64y(96175) Diagnoses Normal physical exam Z00.00 Vitamin D deficiency E55.9 Elevated fasting glucose R73.01 Obesity (BMI 30.0-34.9) E66.9 Additional Codes Asthma Control Questionnaire - ACT Interpretation: Positive ([id number]) JOSE-7 Assessment Billing - JOSE-7 Assessment Tool: JOSE-7 Assessment 37819 ([id number]) PHQ-9 - 72932 - PHQ-9 Billing: Yes ([id number]) Assessment & Plan Assessment & Plan (1) Normal physical exam: Code(s): Z00.00 - Encounter for general adult medical examination without abnormal findings Category: Medical Plan: No significant functional limitation. Healthy diet and routine exercise encouraged. Perform lab work and follow-up for transfer of care with a new PCP within the practice in 2-3 months. Return sooner with symptoms or concerns. Verbalized understanding and agreed with the plan. (2) Vitamin D deficiency: Code(s): E55.9 - Vitamin D deficiency, unspecified Category: Medical Plan: Vitamin-D level is significantly low, 14.3. He was recently started on vitamin D3 50 mcg daily. Encouraged to continue current treatment regimen. Repeat vitamin-D blood work before next visit. Verbalized understanding and agreed with the plan. (3) Elevated fasting glucose: Code(s): R73.01 - Impaired fasting glucose Category: Medical Plan: Fasting glucose is slightly elevated, 109. Routine exercise and healthy diet, including low carbs encouraged. Repeat fasting glucose blood work before next visit. Verbalized understanding and agreed with the plan. (4) Obesity (BMI 30.0-34.9): Code(s): E66.9 - Obesity, unspecified Category: Medical Plan: He currently weighs 193 lb, BMI is 34.3. He has been making unhealthy dietary choices including high carbs and salt. He is active but does not exercise. Healthy diet and routine exercise encouraged. Encouraged to cut down carbs and salt. Advised to call and schedule a follow-up appointment with [facility] research & insights executive/dietitian. Verbalized understanding and agreed with the plan. Orders: Orders Lipid Panel 2 Months E78.00 - Pure hypercholesterolemia, unspecified Vitamin D 25-OH Total 2 Months E55.9 - Vitamin D deficiency, unspecified Glucose Fasting 2 Months R73.01 - Impaired fasting glucose Influenza [id number] Immunization Today Z23 - Encounter for immunization
[2025-03-23 13:52] VITALS: BP 155/92; PULSE 73; RESP 18; TEMP 36.7; O2SAT 97; BMI 34.3
[2025-03-23 13:59] VITALS: BP 150/96
[2025-03-23 14:11] VITALS: BP 138/88
--- OUTSIDE RECORDS SUMMARY | 2025-03-23 17:42 | XMS_ITS | Continuity of Care Document ---
Author Organization [place] - [facility], [facility] Address [address] [place] [address] Assessment Encounter Date Assessment Date Assessment LastModified [...] Time Marginal perforati on of tympanic membrane [id number] Active 2023 Other marginal perforati ons of tympanic membrane, right ear; Note: Date Diagnosed : 07/17/2023 3:12 PM (H72.2X1) Not Available [employer] 02:41:29 Mixed conductiv e and sensorine ural hearing loss of right ear 16873001502 105 Active 2023 Mixed conductiv e and sensorine ural hearing loss, unilatera l, right ear, with unrestric ehsan hearing on the contralat eral side; Note: Date Diagnosed : 07/17/2023 3:12 PM (H90.71) JOVON YOUNG PA-C [address], [place], [address] , [place] - [facility] [place] 5 13:18:05 Sensorine ural hearing loss in left ear 87256732617 109 Active 2023 Sensorine ural hearing loss, unilatera l, left ear, with restricte d hearing on the contralat eral side; Note: Date Diagnosed : 07/17/2023 3:13 PM (H90.A22) JOVON YOUNG PA-C [address] [facility], [place], [address] , [place] - [facility] 5 13:18:05 Otorrhea of right ear [id number] 53179 Active 2024 JOVON YOUNG PA-C [address], [place], [address] , [place] - [facility] [place] 5 15:51:07 Mixed conductiv e and sensorine ural hearing loss, bilateral 417026501 Active 2024 MICHELE MULLER, AUD [address] [facility], [place], [place], [address] , [facility] - [facility] [place] 5 13:30:00 Serous otitis media of left ear 97995143240 33963 Active 2024 JOVON YOUNG PA-C [address], [place], [address] , [facility] - [facility] [place] 5 14:59:09 Problem Notes None recorded. Procedures Surgical History Date Name Laterality Status Provider Name and Address Organization Details Recorded Time Cerumen removal without microscope left completed JOVON YOUNG PA-C [address], [place], [address], [facility] - [facility] [place] 01/04/2025 13:13:25 Comp Audio with Tymps - 78311 & 10045 completed MICHELE MULLER, AUD [address] [facility], [place], [address], [facility] - [facility] 09/29/2024 13:29:43 Imaging Results None recorded. 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 None Information not available [...] Disorder N Anesthesia Complications N Heart Attack (ND) N Other Skin Condition N Diabetes N [...] ICD10 Code Diagnosis IMO Codes Diagnosis Note [id number] JOVON YOUNG PA-C [facility] [address] [address] 01/04/2025 12:38:24 01/04/2025 13:09:14 Serous otitis media of left ear [id number] 577416 H65.92 39538909 Mixed cond uctive and sensorineural hearing loss of right ear 9135719652 9105 H90.71 Sensorineu ral hearing loss in left ear 9724054885 9109 H90.A22 Health Concerns Section Related Observation LastModified by Organization Detai ls LastModified Time None Recorded Concern Status LastModified by Organization Details LastModified Time None Recorded Payers Encounter Date Sequence Insurance Name Policy Number Policy Skinner Covered Member ID Skinner Member ID Guarantor Name 01/04/2025 1 [facility] [id number] Mark Luther [id number] Mark Luther Notes Date Note Type [...] infections s/p myringotomy tubes. NATASHA COON MD [address] [place] [address], [place], [address], [facility] - [facility] 01/04/2025 16:40:29
--- OUTSIDE RECORDS SUMMARY | 2025-03-23 17:42 | XMS_ITS | Data Portability ---
Author Organization [place] - [facility], Allergy Address [address] [address] Assessment Encounter Date Assessment Date Assessment LastModified [...] sooner with concerns or recurrent ear infection. [facility] Not available 01/04/2025 13:17:59 Plan of Treatment [...] ne propionat e 50 mcg/actua tion nasal spray,[facility] pension 2024 025 [facility]/Pharmacy #[id number], [address] [place], [address], 09/29/2024 15:00:31 tobramyci n 0.3 %-dexamet hasone 0.1 % eye drops,[facility] 2024 025 [facility]/Pharmacy #[id number], [address] [place], [address], 09/09/2024 15:52:02 Patient TargetsNo targets recorded. Patient [...] Time Marginal perforati on of tympanic membrane [id number] Active 2023 Other marginal perforati ons of tympanic membrane, right ear; Note: Date Diagnosed : 07/17/2023 3:12 PM (H72.2X1) Not Available Count includes the [facility] 02:41:29 Mixed conductiv e and sensorine ural hearing loss of right ear [id number] 105 Active 2023 Mixed conductiv e and sensorine ural hearing loss, unilatera l, right ear, with unrestric ehsan hearing on the contralat eral side; Note: Date Diagnosed : 07/17/2023 3:12 PM (H90.71) JOVON YOUGN PA-C [address], [place], [place], [address] , [place] - [facility] 5 13:18:05 Sensorine ural hearing loss in left ear 81861248535 109 Active 2023 Sensorine ural hearing loss, unilatera l, left ear, with restricte d hearing on the contralat eral side; Note: Date Diagnosed : 07/17/2023 3:13 PM (H90.A22) JOVON YOUNG PA-C [address], [place], [address] , [place] - [facility] 5 13:18:05 Otorrhea of right ear 79953646517 86779 Active 2024 JOVON YOUNG PA-C [address], [place], [place], [address] , [place] - [facility] 5 15:51:07 Mixed conductiv e and sensorine ural hearing loss, bilateral 459912491 Active 2024 MICHELE MULLER, AUD [address], [place], [place], [address] , [facility] - [facility] 5 13:30:00 Serous otitis media of left ear 50186271784 19902 Active 2024 JOVON YOUNG PA-C [address], [place], [place], [address] , [place] - [facility] 5 14:59:09 Problem Notes None recorded. Procedures Surgical History Date Name Laterality Status Provider Name and Address Organization Details Recorded Time Cerumen removal without microscope left completed JOVON YOUNG PA-C [address], [place], [address], [place] - [facility] 01/04/2025 13:13:25 Comp Audio with Tymps - 44480 & 68150 completed MICHELE MULLER, [facility] [address] [facility], [place], [address], [facility] - [facility] 09/29/2024 13:29:43 Imaging Results None recorded. Procedure [...] mg tablet 09/29 completed Medicati on ID: [id number] B rand Name: fenofibr ate Send Method: [...] Updated DateTime 09/09/2024 157.48 cm 32.9 kg/m2 13818.63 g Gale Chapman [place] - [facility] 09/09/2024 15:29:09 Date Recorded Body height Body mass index (BMI) Body weight Provider Name and Address Organization Details Last Updated DateTime 09/29/2024 160.02 cm 31.9 kg/m2 45552.63 g Gale Chapman [place] - [facility] 09/29/2024 13:38:51 Date Recorded Body height Body mass index (BMI) Body weight Provider Name and Address Organization Details Last Updated DateTime 01/04/2025 160.02 cm 31.9 kg/m2 78987.63 g Yu Weeks [place] - [facility] 01/04/2025 12:51:34 Social History Question Answer Notes LastModified by Organizat ion Details LastModified Time Tobacco Smoking Status Former Smoker Gale whitfield [place] - [facility] 09/09/2024 15:29:23 What Type Of Mud Grinder Do You Use? None Information not available [...] Disorder N Anesthesia Complications N Heart Attack (VT) N Other Skin Condition N Diabetes N [...] ICD10 Code Diagnosis IMO Codes Diagnosis Note [id number] JOVON YOUNG PA-C [facility] [address] [address] 09/09/2024 15:00:28 09/09/2024 15:50:15 Otorrhea of right ear 4028944900 316486 H92.11 1489112 Mixed cond uctive and sensorineural hearing loss of right ear 9167255914 9105 H90.71 Sensorineu ral hearing loss in left ear 7072850272 9109 H90.A22 [id number] JOVON YOUNG PA-C [facility] [address] [address] 09/29/2024 13:01:59 09/29/2024 14:02:28 Mixed conductive and sensorineural hearing loss, bilateral 819701406 H90.6 651258 Audiologic al evaluation results: 09/29/2024 Right ear: Moderately -severe flat mixed hearing loss with excellent word recognitio n. Left ear: Moderate sloping to profound mixed hearing loss with excellent word recognitio n. Tympanomet ry: Right Ear:Type B with large volume Left Ear:Type B Marginal p erforation of tympanic membrane 64292981 H72.2X1 Serous tiana tis media of left ear 4357679616 814849 H65.92 [id number] JOVON YOUNG PA-C [facility] [address] [place] [address] 01/04/2025 12:38:24 01/04/2025 13:09:14 Serous otitis media of left ear 2003508889 819818 H65.92 11227282 Mixed cond uctive and sensorineural hearing loss of right ear 7293290627 9105 H90.71 Sensorineu ral hearing loss in left ear 4856416754 9109 H90.A22 Health Concerns Section Related Observation LastModified by Organization Detai ls LastModified Time None Recorded Concern Status LastModified by Organization Details LastModified Time None Recorded Advance Directives Directive None Recorded Payers Insurance Date Sequence Insurance Name Policy Number Policy Skinner Covered Member ID Skinner Member ID Guarantor Name 01/04/[address] [facility] [id number] Mark Luther [id number] Mark Luther Notes Date Note Type [...] result. Denies ear pain. ROSALBA KELSEY MD [address] [place] [address], [place], [address], [facility] - [facility] 09/09/2024 17:16:17 09/29/2024 text/html ROS as noted [...] acute infection. JAY JAY MORROW MD [address] [facility],[place] [address], [place], [address], [facility] - [facility] 10/05/2024 07:54:40 01/04/2025 text/html ROS as noted in the HPI 49yo male with right mixed loss and left SNHL with bilateral amplification presents for reevaluation of left serous effusion. He trialed intranasal fluticasone. Denies hearing concerns, ear pain, or drainage today. He has a longstanding history of recurrent ear infections s/p myringotomy tubes. NATASHA COON MD [address] [place] [address],[place] [address], [place], [address], [facility] - [facility] 01/04/2025 16:40:29
== END 2025-03-23 14:33 | disposition home or self-care (01) ==
LOC: HO.HMCFM 13:39
PROVIDERS: PCP Nurse Practitioner Family; Visit Provider Nurse Practitioner Family
DX: Z00.00 Encounter for general adult medical examination without abnormal findings (principal); E55.9 Vitamin D deficiency, unspecified; E66.9 Obesity, unspecified; Z68.34 Body mass index [BMI] 34.0-34.9, adult; R73.01 Impaired fasting glucose; Z23 Encounter for immunization

== ENCOUNTER → 2025-03-23 13:38 | Outpatient (BNVA) | payer BC, SELFPAY | PROVIDERS: PCP Nurse Practitioner Family; Visit Provider Nurse Practitioner Family | DX: Z00.00 Encounter for general adult medical examination without abnormal findings (principal); E55.9 Vitamin D deficiency, unspecified; R73.01 Impaired fasting glucose; E66.9 Obesity, unspecified; Z23 Encounter for immunization; Z68.34 Body mass index [BMI] 34.0-34.9, adult | CPT/HCPCS: 90471; 90656; 96127; 96160 ==